=== PATIENT | male | born 1965 | race Hispanic/Latino ===

== ENCOUNTER 2019-03-21 16:55 | Emergency (ER) | payer BC ==
[2019-03-21 17:55] LABS: BASOPHILS % (AUTO) 0.7 % (0.0-5.0); EOSINOPHILS % (AUTO) 5.1 % (0.0-8.0); HEMATOCRIT 39.3 % (42-54); LYMPHOCYTES % (AUTO) 16.4 % (21.0-51.0); MEAN CORPUSCULAR HEMOGLOBIN 32.2 pg (27.0-33.0); MEAN CORPUSCULAR HGB CONC 34.9 g/dL (32.0-36.0); MEAN CORPUSCULAR VOLUME 92.5 fL (79-99); MONOCYTES % (AUTO) 12.4 % (3.0-13.0); NEUTROPHILS % (AUTO) 65.1 % (40.0-77.0); PLATELET COUNT (AUTO) 83 K/uL (130-400); RED BLOOD CELL COUNT(AUTO) 4.25 MIL/uL (4.50-6.20)
[2019-03-21 18:04] LABS: CREATININE 0.7 mg/dL (0.5-1.5); POTASSIUM 3.2 mmol/L (3.5-5.1)
[2019-03-21 18:08] LABS: ALBUMIN 2.8 g/dL (3.5-5.0); BILIRUBIN,TOTAL 2.7 mg/dL (0.2-1.0); TOTAL PROTEIN, SERUM 7.4 g/dL (6.0-8.3)
[2019-03-21 18:16] LABS: INR 1.19 (0.85-1.15); PARTIAL THROMBOPLASTIN TIME 30.9 SEC (26.3-35.5); PROTHROMBIN TIME 12.4 SEC (9.6-11.6)
[2019-03-21 18:21] LABS: RAPID GROUP A STREP NEGATIVE (NEGATIVE)
[2019-03-21] MEDS ORDERED: ASPIRIN 325 MG TABLET ONE (18:35)
[2019-03-21 18:42] LABS: APPEARANCE,URINE Clear (CLEAR); BILIRUBIN,URINE Negative (NEGATIVE); COLOR,URINE Yellow (YELLOW); GLUCOSE, URINE (UA) Negative (NEGATIVE); KETONES,URINE Negative (NEGATIVE); LEUKOCYTE ESTERASE ,URINE Moderate (NEGATIVE); NITRATE,URINE Negative (NEGATIVE); OCCULT BLOOD,URINE Trace (NEGATIVE); PH,URINE 7.5 (5.0-8.0); PROTEIN,URINE Negative (NEGATIVE)
[2019-03-21 18:47] LABS: BACTERIA,URINE Rare /HPF (None Seen); RBC,URINE 0-1 /HPF (0-1); SQUAMOUS EPITHELIAL CELL,UR Rare /HPF (0-2)
[2019-03-21] MEDS ORDERED: IPRATROPIUM/ALBUTEROL SULFATE 3 ML SOLUTION IH ONE (20:33)
[2019-03-21] MEDS ORDERED: IOHEXOL 350 MG/ML 100ML INFUS..BTL IV ONE (21:51)
[2019-03-21] MEDS ORDERED: AZITHROMYCIN 250 MG TABLET PO ONE ×2 (23:24→23:25)
== END 2019-03-21 23:52 | disposition home or self-care (01) ==
LOC: EDH 16:55
DX: J84.114 Acute interstitial pneumonitis (principal); I10 Essential (primary) hypertension; E11.9 Type 2 diabetes mellitus without complications; Z90.49 Acquired absence of other specified parts of digestive tract; Z98.890 Other specified postprocedural states
CPT/HCPCS: 36415; 71046; 71275; 80053; 81001; 82550; 83880; 84484; 85025; 85378; 85610; 85730; 87804 ×2; 87880; 93005; 94640; 99285; Q9967

== ENCOUNTER 2019-04-24 14:41 | Inpatient (IN) | payer BC ==
[~2019-04-24] VITALS: Ht 175.3 cm; Wt 124.6 kg
[2019-04-24] MEDS ORDERED: SODIUM CHLORIDE 0.9% 1000ML 1,000 ML IV ONE (15:38)
[2019-04-24 16:10] LABS: BASOPHILS % (AUTO) 0.4 % (0.0-5.0); EOSINOPHILS % (AUTO) 1.9 % (0.0-8.0); HEMATOCRIT 33.8 % (42-54); LYMPHOCYTES % (AUTO) 24.7 % (21.0-51.0); MEAN CORPUSCULAR HEMOGLOBIN 32.5 pg (27.0-33.0); MEAN CORPUSCULAR HGB CONC 34.3 g/dL (32.0-36.0); MEAN CORPUSCULAR VOLUME 94.7 fL (79-99); MONOCYTES % (AUTO) 9.5 % (3.0-13.0); NEUTROPHILS % (AUTO) 63.1 % (40.0-77.0); PLATELET COUNT (AUTO) 71 K/uL (130-400); RED BLOOD CELL COUNT(AUTO) 3.57 MIL/uL (4.50-6.20); WHITE BLOOD COUNT (AUTO) 5.2 K/uL (4.8-10.8)
[2019-04-24 16:27] LABS: INR 1.29 (0.85-1.15); PARTIAL THROMBOPLASTIN TIME 30.2 SEC (26.3-35.5); PROTHROMBIN TIME 13.8 SEC (9.6-11.6)
[2019-04-24 16:50] LABS: CREATININE 0.7 mg/dL (0.5-1.5); POTASSIUM 3.4 mmol/L (3.5-5.1)
[2019-04-24 16:55] LABS: ALBUMIN 2.6 g/dL (3.5-5.0); BILIRUBIN,TOTAL 2.2 mg/dL (0.2-1.0)
[2019-04-24] MEDS ORDERED: SODIUM CHLORIDE 0.9% 250 ML IV ONE (18:03)
[2019-04-24] MEDS ORDERED: OCTREOTIDE ACETATE 200 MCG/ML 5 ML VIAL ONE (18:03)
[2019-04-24] MEDS ORDERED: OCTREOTIDE ACETATE 100 MCG/ML AMP ONE (18:03)
[2019-04-24] MEDS ORDERED: POTASSIUM CHLORIDE 10% ELIXIR 20 MEQ/15 ML UDCUP PO PRN (18:30)
[2019-04-24] MEDS ORDERED: DEXTROSE 50%-WATER 50 ML DISP.SYRIN IV PRN (18:30)
[2019-04-24] MEDS ORDERED: GLUCAGON 1MG KIT 1 MG ML IM PRN (18:30)
[2019-04-24] MEDS ORDERED: MAGNESIUM 2GM PREMIX 50ML 50 ML IV PRN (18:30)
[2019-04-24] MEDS ORDERED: POTASSIUM CHLORIDE 20MEQ/100ML 100 ML IV PRN (18:30)
[2019-04-24] MEDS: SODIUM CHLORIDE 0.9% 1000ML 1,000 ML IV SCH (18:31)
[2019-04-24] MEDS ORDERED: SODIUM CHLORIDE 0.9% 1000ML 1,000 ML IV SCH (18:45)
[2019-04-24] MEDS ORDERED: DIPHENHYDRAMINE HCL 25 MG CAPSULE PO PRN (18:45)
[2019-04-24] MEDS ORDERED: NITROGLYCERIN 0.4 MG SL TAB SL PRN (18:45)
[2019-04-24] MEDS ORDERED: ACETAMINOPHEN 325 MG TAB PO PRN ×2 (18:45)
[2019-04-24] MEDS ORDERED: ONDANSETRON HCL 4 MG/2 ML VIAL IV PRN (18:45)
[2019-04-24] MEDS ORDERED: OCTREOTIDE ACETATE 1,250 MCG in SODIUM CHLORIDE 0.9% 250 ML IV SCH (18:45)
[2019-04-24 20:20] LABS: HEMOGLOBIN A1C 5.2 % (4.0-6.0)
[2019-04-24] MEDS: INSULIN HUMULIN R 100 UNIT/ML 3ML SQ SCH (21:00)
[2019-04-24 22:35] LABS: APPEARANCE,URINE Clear (CLEAR); BILIRUBIN,URINE Negative (NEGATIVE); COLOR,URINE Yellow (YELLOW); GLUCOSE, URINE (UA) Negative (NEGATIVE); KETONES,URINE Negative (NEGATIVE); LEUKOCYTE ESTERASE ,URINE Negative (NEGATIVE); NITRATE,URINE Negative (NEGATIVE); OCCULT BLOOD,URINE Negative (NEGATIVE); PH,URINE 7.5 (5.0-8.0); PROTEIN,URINE Negative (NEGATIVE)
[2019-04-24 22:40] LABS: HEMATOCRIT 33.3 % (42-54)
[2019-04-25] VITALS (22 sets, daily range): BP systolic 127–166; BP diastolic 71–96
[2019-04-25] MEDS ORDERED: MAGNESIUM 2GM PREMIX 50ML 50 ML IV ONE (00:46)
--- NOTE | 2019-04-25 02:18 | NUR ---
PATIENT RECEIVED FROM ER, REPORT FROM ARNOLDO WILKES. DX MELENA, THROMBOCYTOPENIA AND DEHYDRATION. PT ARRIVED TO ROOM AAOX3, NO ACUTE DISTRESS NOTED OR VOICED. PATIENT IS ACCOMPANIED BY . PT STATES HE STARTED WITH SYMPTOMS ON TUESDAY, THEY PROGRESSED, HE FELT WEAK AND DECIDED TO COME TO HOSPITAL. PT AND SPOUSE ORIENTED ON ADMISSION AND ENVIRONMENT, INCLUDING CALL GOYAL AND POC. TELE MONITORING TO BE INITIATED. PT CURRENTLY ON SANDOSTATIN DRIP AT 25MCG/HR (5ML) AND NS 100ML/HR. PLAN TO REPLACE K FOR LEVEL OF 3.4. WILL CONT TO MONITOR CLOSELY. FALL PRECAUTIONS INSTRUCTED. Addendum: 04/25/19 at 0430 by MARTA JEAN BAPTISTE RN RN Amended: Links added.
[2019-04-25] MEDS ORDERED: LOSA50TA64 PO (02:23)
[2019-04-25] MEDS: SODIUM CHLORIDE 0.9% 1000ML 1,000 ML IV SCH ×2 (03:27→14:17)
[2019-04-25] MEDS ORDERED: POTASSIUM CHLORIDE 20MEQ/100ML 100 ML IV PRN (03:30)
[2019-04-25] MEDS ORDERED: LIDOCAINE HCL-MPF 1% 2ML VIAL IV PRN (03:30)
[2019-04-25] MEDS: LIDOCAINE HCL-MPF 1% 2ML VIAL IJ PRN (03:33)
[2019-04-25 05:01] LABS: HEMATOCRIT 31.8 % (42-54); MEAN CORPUSCULAR HEMOGLOBIN 32.4 pg (27.0-33.0); MEAN CORPUSCULAR VOLUME 95.5 fL (79-99); PLATELET COUNT (AUTO) 78 K/uL (130-400); RED BLOOD CELL COUNT(AUTO) 3.33 MIL/uL (4.50-6.20); RED CELL DISTRIBUTION WIDTH 13.2 % (11.0-15.5); WHITE BLOOD COUNT (AUTO) 5.7 K/uL (4.8-10.8)
[2019-04-25 05:06] LABS: ALBUMIN 2.4 g/dL (3.5-5.0); BILIRUBIN,TOTAL 2.3 mg/dL (0.2-1.0); CREATININE 0.7 mg/dL (0.5-1.5); MAGNESIUM 1.9 mg/dL (1.80-2.40); POTASSIUM 3.6 mmol/L (3.5-5.1); TOTAL PROTEIN, SERUM 6.5 g/dL (6.0-8.3)
[2019-04-25 05:20] LABS: LYMPHOCYTES % (MANUAL) 12 % (22-44); MAN.DIFF COMMENT-IMPRESSION MANUAL DIFFERENTIAL; MONOCYTES % (MANUAL) 8 % (2-9); PLATELET MORPHOLOGY COMMENT DECREASED; SEGMENTED NEUTROPHILS % 80 % (40-70)
[2019-04-25] MEDS: INSULIN HUMULIN R 100 UNIT/ML 3ML SQ SCH (05:25)
[2019-04-25] MEDS ORDERED: FAMOTIDINE/PF 20 MG/2 ML VIAL IV SCH (09:00)
[2019-04-25] MEDS: FUROSEMIDE 20 MG TABLET PO SCH (09:30)
[2019-04-25] MEDS: SPIRONOLACTONE 25 MG TAB PO SCH ×2 (09:30→20:30)
[2019-04-25] MEDS: PANTOPRAZOLE 40 MG/VIAL IVP SCH ×2 (10:11→20:30)
[2019-04-25 10:25] LABS: MAGNESIUM 1.9 mg/dL (1.80-2.40); POTASSIUM 3.5 mmol/L (3.5-5.1)
[2019-04-25] MEDS ORDERED: PROPOFOL 10 MG/ML 20ML VIAL IV ONE (11:00)
--- NOTE | 2019-04-25 12:00 | NUR ---
CM NOTE SPOKE WITH PATIENT & SPOUSE AT BEDSIDE. PATIENT HAS LIVER DISEASE, DOES 'NOT KNOW WHAT STAGE?' PATIENT HAS FATTY LIVER DISEASE-- RECOMMENDED TRANSPORTATION COORDINATOR CONSULT FOR RECOMMENDATIONS AND PLACED IN COMPUTER.
--- NOTE | 2019-04-25 12:00 | NUR ---
INITIAL Patient lives with spouse, Isabel Rich, [phone]. No home services or DME. Patient did state that his PCP had ordered him a BPM but he has not received it yet. 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 He is also able to drive. PCP is Dr. Lima Silver. Pharmacy is [facility] on [address] or Pharmacy at [facility]. DCP is home. Addendum: 04/25/19 at 1203 by LAISHA TOVAR SS Amended: Links added.
--- NOTE | 2019-04-25 12:04 | NUR ---
ADVANCED DIRECTIVES Patient requesting information on Advanced Directives. SW educated patient and spouse on Advanced Directives and Medical Power of [employer]erves. Patient stated that he would review and let SW know when and if he was ready to complete. Felipe AGUILAR, made aware.
--- NOTE | 2019-04-25 15:56 | NUR ---
RD NOTIFICATION DIET: NPO. PT REPORTS TARRY AND LOOSE STOOLS. LABS AND MEDS REVIEWED. SKIN IS INTACT. RD PENDING MD RESULTS. RD RECOMMENDS TO ADVANCE DIET TOLERATED WHEN MEDICALLY FEASIBLE MONITOR BM, PO INTAKE AND TOLERANCE MONITOR LABS RD WILL CONTINUE TO MONITOR AND FOLLOW UP, THANK YOU. Addendum: 04/25/19 at [address] Amended: Links added.
[2019-04-25] MEDS ORDERED: MORPHINE SULFATE 2 MG/ML 1ML SYG ONE (22:45)
[2019-04-25] MEDS ORDERED: MORPHINE SULFATE 2 MG/ML 1ML SYG IVP PRN (23:00)
[2019-04-26 00:16] VITALS: BP 160/84
[2019-04-26] MEDS: SODIUM CHLORIDE 0.9% 1000ML 1,000 ML IV SCH ×2 (00:33→10:40)
[2019-04-26 04:16] VITALS: BP 117/69
[2019-04-26 05:42] LABS: BASOPHILS % (AUTO) 0.9 % (0.0-5.0); EOSINOPHILS % (AUTO) 4.5 % (0.0-8.0); HEMATOCRIT 29.6 % (42-54); LYMPHOCYTES % (AUTO) 32.3 % (21.0-51.0); MEAN CORPUSCULAR HEMOGLOBIN 33.2 pg (27.0-33.0); MEAN CORPUSCULAR HGB CONC 35.1 g/dL (32.0-36.0); MEAN CORPUSCULAR VOLUME 94.6 fL (79-99); MONOCYTES % (AUTO) 7.1 % (3.0-13.0); PLATELET COUNT (AUTO) 70 K/uL (130-400); RED BLOOD CELL COUNT(AUTO) 3.13 MIL/uL (4.50-6.20); RED CELL DISTRIBUTION WIDTH 13.1 % (11.0-15.5); WHITE BLOOD COUNT (AUTO) 4.7 K/uL (4.8-10.8)
[2019-04-26 05:51] LABS: ALBUMIN 2.3 g/dL (3.5-5.0); BILIRUBIN,TOTAL 2.1 mg/dL (0.2-1.0); CREATININE 0.7 mg/dL (0.5-1.5); TOTAL PROTEIN, SERUM 6.2 g/dL (6.0-8.3)
[2019-04-26 07:13] LABS: HEPATITIS A ANTIBODY IGM Negative (Negative); HEPATITIS B CORE IGM Negative (Negative); HEPATITIS Bs ANTIGEN SCREEN P Negative (Negative)
[2019-04-26] MEDS: LIDOCAINE HCL-MPF 1% 2ML VIAL IJ PRN (07:19)
[2019-04-26 07:30] VITALS: BP 146/66
[2019-04-26] MEDS: PANTOPRAZOLE 40 MG/VIAL IVP SCH ×2 (09:58→20:35)
[2019-04-26] MEDS: SPIRONOLACTONE 25 MG TAB PO SCH ×2 (09:58→20:35)
[2019-04-26] MEDS: POTASSIUM CHLORIDE 20 MEQ ERTAB PO PRN ×3 (09:59→17:48)
[2019-04-26] MEDS: FUROSEMIDE 20 MG TABLET PO SCH (09:59)
[2019-04-26 11:00] VITALS: BP 129/76
--- NOTE | 2019-04-26 14:47 | NUR ---
NUTRITION EDUCATION COMPLETED RD PROVIDED CIRRHOSIS AND FATTY LIVER MEDICAL NUTRITION THERAPY. ALL QUESTIONS WERE ANSWERED. PT AND VERBALIZED UNDERSTANDING. EDUCATION MATERIALS WERE PROVIDED IN [facility]. Addendum: 04/26/19 at [address] Amended: Links added.
--- NOTE | 2019-04-26 14:49 | NUR ---
RD FOLLOW UP PT REPORTS HAVING NORMAL STOOLS TODAY. HE IS TOLERATING CURRENT DIET AND STATED THAT HE IS "STARVING". PT WOULD LIKE TO SPEAK TO MD ABOUT ADVANCING HIS DIET.
[2019-04-26 16:00] VITALS: BP 127/93
[2019-04-26] MEDS: PROPRANOLOL HCL 20 MG TAB PO SCH (17:47)
[2019-04-26 20:16] VITALS: BP 129/85
[2019-04-27 00:20] VITALS: BP 121/77
[2019-04-27 04:01] LABS: BASOPHILS % (AUTO) 0.6 % (0.0-5.0); EOSINOPHILS % (AUTO) 3.8 % (0.0-8.0); HEMATOCRIT 30.4 % (42-54); MEAN CORPUSCULAR HGB CONC 34.9 g/dL (32.0-36.0); MEAN CORPUSCULAR VOLUME 94.7 fL (79-99); MONOCYTES % (AUTO) 8.1 % (3.0-13.0); NEUTROPHILS % (AUTO) 56.3 % (40.0-77.0); PLATELET COUNT (AUTO) 75 K/uL (130-400); RED BLOOD CELL COUNT(AUTO) 3.21 MIL/uL (4.50-6.20); RED CELL DISTRIBUTION WIDTH 12.9 % (11.0-15.5); WHITE BLOOD COUNT (AUTO) 4.7 K/uL (4.8-10.8)
[2019-04-27 04:15] LABS: ALBUMIN 2.4 g/dL (3.5-5.0); BILIRUBIN,TOTAL 1.6 mg/dL (0.2-1.0); CREATININE 0.8 mg/dL (0.5-1.5); POTASSIUM 3.7 mmol/L (3.5-5.1); TOTAL PROTEIN, SERUM 6.3 g/dL (6.0-8.3)
[2019-04-27 04:20] VITALS: BP 110/58
[2019-04-27] MEDS: PROPRANOLOL HCL 20 MG TAB PO SCH (04:32)
[2019-04-27] MEDS ORDERED: PANT40TA25 PO (07:47)
[2019-04-27] MEDS ORDERED: SPIR25TA PO (07:47)
[2019-04-27] MEDS ORDERED: FURO20TA6 PO (07:47)
[2019-04-27] MEDS ORDERED: PROP20TA96 PO (07:47)
[2019-04-27 08:49] VITALS: BP 133/76
[2019-04-27] MEDS: SPIRONOLACTONE 25 MG TAB PO SCH (10:44)
[2019-04-27] MEDS: FUROSEMIDE 20 MG TABLET PO SCH (10:44)
[2019-04-27] MEDS: PANTOPRAZOLE 40 MG/VIAL IVP SCH (10:44)
[2019-04-27] MEDS: POTASSIUM CHLORIDE 20 MEQ ERTAB PO PRN (10:47)
--- NOTE | 2019-04-27 12:25 | NUR ---
PT D/C HOME USING TEACH BACK TECHNIQUE RE; NEW MEDS, HOME MEDS, S/S TO WATCH FOR AND WHEN TO CALL MD OR 911. FOLLOW UP WITH YOUR PRIMARY DOCTOR IN 2-4 DAYS FOR TRANSITION OF CARE. FOLLOW UP WITH DR. LUI IN 1-2 WEEKS. CALL TO SET UP AN APPOINTMENT AT PHONE [phone]. IF YOU NOTICE BLOOD IN YOUR STOOLS CALL YOUR PRIMARY DOCTOR. IF YOU FEEL DIZZY OR LIGHT HEADED, OR SHORT OF BREATH CALL YOUR DOCTOR COULD MEAN YOUR BLOOD COUNT MAY BE LOW. CALL 911 IF SHORTNESS OF BREATH OR CHEST PAIN DOES NOT RESOLVE WITH REST. IV OUT INTACT, NO DISTRESS, AAOX3, PATIENT DENIES ANY QUESTIONS OR CONCERNS. TELE PACK REMOVED BY FINISHED GOODS PLANNER.
--- NOTE | 2019-04-27 15:20 | NUR ---
PRESCRIPTION FOR CIPRO CALLED IN TO [facility] SPOKE WITH DEMI MCFADDEN.
== END 2019-04-27 13:00 | disposition home or self-care (01) | DRG 432 ==
LOC: EDH 14:41 → EDHIP 18:22 → 4BH 23:40
PROVIDERS: ADMIT Hospitalist; ATTEND Hospitalist
PROC: 06L38CZ Occlusion of Esophageal Vein with Extraluminal Device, Via Natural or Artificial Opening Endoscopic (ICD-10-PCS; principal; 2019-04-25)
DX: K74.60 Unspecified cirrhosis of liver (principal); I85.01 Esophageal varices with bleeding; K76.6 Portal hypertension; Z68.41 Body mass index [BMI] 40.0-44.9, adult; D62 Acute posthemorrhagic anemia; D69.6 Thrombocytopenia, unspecified; E86.0 Dehydration; E87.6 Hypokalemia; E66.01 Morbid (severe) obesity due to excess calories; G30.9 Alzheimer's disease, unspecified; Z83.49 Family history of other endocrine, nutritional and metabolic diseases; Z82.49 Family history of ischemic heart disease and other diseases of the circulatory system; G89.29 Other chronic pain; I10 Essential (primary) hypertension; Z87.442 Personal history of urinary calculi
CPT/HCPCS: 36415; 71045; 76700; 80053; 80074; 81003; 82270; 82948; 82977; 83036; 83605; 83735; 84132; 84484; 85014; 85018; 85025; 85610; 85730; 86900; 86901; 87040; 87046; 93005; A4606; C9113; G0378; J2354; J2405; J2704; J3475; J3480; J3490; J7030

== ENCOUNTER 2019-06-12 20:23 | Emergency (ER) | payer BC ==
[~2019-06-12 20:23] MED LIST: FURO20TA6 PO; LOSA50TA64 PO; PANT40TA25 PO; PROP20TA96 PO; SPIR25TA PO
[2019-06-12 20:57] LABS: APPEARANCE,URINE Clear (CLEAR); BILIRUBIN,URINE Negative (NEGATIVE); COLOR,URINE Yellow (YELLOW); GLUCOSE, URINE (UA) Negative (NEGATIVE); KETONES,URINE Negative (NEGATIVE); LEUKOCYTE ESTERASE ,URINE Small (NEGATIVE); NITRATE,URINE Negative (NEGATIVE); OCCULT BLOOD,URINE Negative (NEGATIVE); PROTEIN,URINE Negative (NEGATIVE)
[2019-06-12 21:08] LABS: BASOPHILS % (AUTO) 0.4 % (0.0-5.0); EOSINOPHILS % (AUTO) 4.5 % (0.0-8.0); HEMATOCRIT 32.4 % (42-54); LYMPHOCYTES % (AUTO) 20.2 % (21.0-51.0); MEAN CORPUSCULAR HEMOGLOBIN 31.6 pg (27.0-33.0); MEAN CORPUSCULAR HGB CONC 34.3 g/dL (32.0-36.0); MEAN CORPUSCULAR VOLUME 92.3 fL (79-99); MONOCYTES % (AUTO) 12.3 % (3.0-13.0); NEUTROPHILS % (AUTO) 62.6 % (40.0-77.0); PLATELET COUNT (AUTO) 79 K/uL (130-400); RED BLOOD CELL COUNT(AUTO) 3.51 MIL/uL (4.50-6.20); RED CELL DISTRIBUTION WIDTH 12.9 % (11.0-15.5); WHITE BLOOD COUNT (AUTO) 4.9 K/uL (4.8-10.8)
[2019-06-12 21:12] LABS: BACTERIA,URINE Rare /HPF (None Seen); RBC,URINE None Seen /HPF (0-1); SQUAMOUS EPITHELIAL CELL,UR 0-2 /HPF (0-2)
[2019-06-12 21:18] LABS: POTASSIUM 3.5 mmol/L (3.5-5.1)
[2019-06-12 21:23] LABS: ALBUMIN 2.7 g/dL (3.5-5.0); BILIRUBIN,TOTAL 1.5 mg/dL (0.2-1.0); INR 1.21 (0.85-1.15); MAGNESIUM 1.6 mg/dL (1.80-2.40); PARTIAL THROMBOPLASTIN TIME 29.8 SEC (26.3-35.5); TOTAL PROTEIN, SERUM 6.7 g/dL (6.0-8.3)
== END 2019-06-12 22:35 | disposition home or self-care (01) ==
LOC: EDH 20:23
DX: E86.9 Volume depletion, unspecified (principal); R53.1 Weakness; E11.9 Type 2 diabetes mellitus without complications; I10 Essential (primary) hypertension; Z87.442 Personal history of urinary calculi
CPT/HCPCS: 36415; 80053; 81001; 82270; 82550; 83735; 84484; 85025; 85610; 85730; 93005

== ENCOUNTER 2019-07-16 22:37 | Inpatient (IN) | payer BC ==
[~2019-07-16] VITALS: Ht 175.3 cm; Wt 129.5 kg
[~2019-07-16 22:37] MED LIST changes: -PANT40TA25 PO; +PANT40TA54 PO
[2019-07-16] MEDS ORDERED: METOCLOPRAMIDE 10 MG/2 ML VIAL ONE (23:38)
[2019-07-16] MEDS ORDERED: ONDANSETRON HCL 4 MG/2 ML VIAL ONE (23:38)
[2019-07-16] MEDS ORDERED: FAMOTIDINE/PF 20 MG/2 ML VIAL IV ONE (23:39)
[2019-07-16 23:40] LABS: BASOPHILS % (AUTO) 0.8 % (0.0-5.0); EOSINOPHILS % (AUTO) 3.4 % (0.0-8.0); HEMATOCRIT 30.9 % (42-54); LYMPHOCYTES % (AUTO) 23.3 % (21.0-51.0); MEAN CORPUSCULAR HEMOGLOBIN 30.9 pg (27.0-33.0); MEAN CORPUSCULAR HGB CONC 33.3 g/dL (32.0-36.0); MEAN CORPUSCULAR VOLUME 92.8 fL (79-99); MONOCYTES % (AUTO) 7.1 % (3.0-13.0); PLATELET COUNT (AUTO) 98 K/uL (130-400); RED BLOOD CELL COUNT(AUTO) 3.33 MIL/uL (4.50-6.20); RED CELL DISTRIBUTION WIDTH 13.7 % (11.0-15.5); WHITE BLOOD COUNT (AUTO) 4.9 K/uL (4.8-10.8)
[2019-07-16 23:51] LABS: INR 1.34 (0.85-1.15); PARTIAL THROMBOPLASTIN TIME 28.1 SEC (26.3-35.5); PROTHROMBIN TIME 14.3 SEC (9.6-11.6)
[2019-07-16 23:54] LABS: CARBON DIOXIDE 27 mmol/L (21-32); CHLORIDE 108 mmol/L (101-111); GLOMERULAR FILTR. RATE CALC 83 mL/min (>60); GLUCOSE,RANDOM 121 mg/dL (70-105); POTASSIUM 4.5 mmol/L (3.5-5.1); SODIUM SERUM 139 mmol/L (136-145); UREA NITROGEN, BLOOD 25 mg/dL (7-18)
[2019-07-16 23:58] LABS: ALANINE AMINOTRANSFERASE 43 U/L (12-78); ALBUMIN 2.5 g/dL (3.5-5.0); ASPARTATE AMINOTRANSFERASE 56 U/L (10-37); BILIRUBIN,TOTAL 1.7 mg/dL (0.2-1.0); CREATINE KINASE, TOTAL 239 U/L (21-232); LIPASE 138 U/L (114-286); TOTAL PROTEIN, SERUM 6.5 g/dL (6.0-8.3)
[2019-07-17] VITALS (18 sets, daily range): BP systolic 95–163; BP diastolic 41–77
[2019-07-17 00:11] LABS: ALCOHOL, BLOOD < 3 mg/dL (0-10)
[2019-07-17] MEDS ORDERED: SODIUM CHLORIDE 0.9% 100 ML IV ONE (00:18)
[2019-07-17] MEDS: SODIUM CHLORIDE 0.9% 1000ML 1,000 ML IV SCH ×3 (00:35→23:00)
[2019-07-17] MEDS ORDERED: ONDANSETRON HCL 4 MG/2 ML VIAL IV PRN (00:45)
[2019-07-17] MEDS ORDERED: LACTULOSE 20 GM/30 ML UDCUP PO PRN (00:45)
[2019-07-17] MEDS ORDERED: OCTREOTIDE ACETATE 1,250 MCG in SODIUM CHLORIDE 0.9% 250 ML IV SCH (01:00)
[2019-07-17] MEDS: PANTOPRAZOLE SODIUM 80 MG in SODIUM CHLORIDE 0.9% 100 ML IV SCH ×2 (01:00→11:00)
[2019-07-17] MEDS ORDERED: OCTREOTIDE ACETATE 200 MCG/ML 5 ML VIAL ONE (01:35)
[2019-07-17] MEDS ORDERED: OCTREOTIDE ACETATE 100 MCG/ML AMP ONE (01:35)
[2019-07-17] MEDS ORDERED: ONDANSETRON HCL 4 MG/2 ML VIAL ONE (01:56)
[2019-07-17] MEDS ORDERED: HYDRALAZINE HCL 20 MG/ML VIAL IV PRN (02:15)
[2019-07-17 04:33] LABS: HEMATOCRIT 26.1 % (42-54)
[2019-07-17 04:47] LABS: APPEARANCE,URINE Clear (CLEAR); BILIRUBIN,URINE Negative (NEGATIVE); COLOR,URINE Dark Yellow (YELLOW); GLUCOSE, URINE (UA) Negative (NEGATIVE); KETONES,URINE Trace mg/dL (NEGATIVE); LEUKOCYTE ESTERASE ,URINE Trace (NEGATIVE); NITRATE,URINE Negative (NEGATIVE); OCCULT BLOOD,URINE Negative (NEGATIVE); PROTEIN,URINE POS 1+ mg/dL (NEGATIVE)
[2019-07-17 04:57] LABS: BACTERIA,URINE None Seen /HPF (None Seen); MUCUS,URINE Few LPF (None Seen); RBC,URINE 0-1 /HPF (0-1); SQUAMOUS EPITHELIAL CELL,UR Rare /HPF (0-2)
[2019-07-17] MEDS ORDERED: PROPOFOL 10 MG/ML 20ML VIAL IV ONE (10:18)
[2019-07-17] MEDS ORDERED: MIDAZOLAM HCL 1 MG/ML 2ML VIAL ONE (10:18)
[2019-07-17 10:43] LABS: HEMATOCRIT 27.9 % (42-54)
[2019-07-17] MEDS: MORPHINE SULFATE 2 MG/ML 1ML SYG IV PRN (12:15)
[2019-07-17] MEDS ORDERED: GABA-529 PO ×2 (12:39)
[2019-07-17] MEDS ORDERED: TAMS-1 PO ×2 (12:39)
[2019-07-17] MEDS: HYDROMORPHONE HCL 2 MG/ML VIAL IVP SCH ×2 (14:45→18:45)
--- NOTE | 2019-07-17 15:48 | NUR ---
DCP CM met with pt discussed dc plans. Pt is independent prior to admission, lives at home with spouse. Denies any equipments/services. Feels safe to go back home, still drives and works, spouse able to assist with transportation and needs as necessary. Pt verbalized he does to Dr darell ott/[facility] or Darlin alvarez for pcp follow up. Current addr: [address] [place] ,[place]. DC plan to home once stable. CM to cont to follow up. Addendum: 07/17/19 at 1550 by RAZA CANTU LVN CM Amended: Links added.
[2019-07-17] MEDS: METOCLOPRAMIDE 10 MG/2 ML VIAL IVP SCH (20:38)
[2019-07-18] VITALS (7 sets, daily range): BP systolic 110–149; BP diastolic 68–87
[2019-07-18 05:01] LABS: BASOPHILS % (AUTO) 0.6 % (0.0-5.0); EOSINOPHILS % (AUTO) 0.8 % (0.0-8.0); HEMATOCRIT 26.9 % (42-54); LYMPHOCYTES % (AUTO) 23.1 % (21.0-51.0); MEAN CORPUSCULAR VOLUME 97.1 fL (79-99); MONOCYTES % (AUTO) 7.7 % (3.0-13.0); NEUTROPHILS % (AUTO) 67.6 % (40.0-77.0); PLATELET COUNT (AUTO) 83 K/uL (130-400); RED BLOOD CELL COUNT(AUTO) 2.77 MIL/uL (4.50-6.20); RED CELL DISTRIBUTION WIDTH 14.4 % (11.0-15.5); WHITE BLOOD COUNT (AUTO) 6.3 K/uL (4.8-10.8)
[2019-07-18 05:13] LABS: ALBUMIN 2.4 g/dL (3.5-5.0); BILIRUBIN,TOTAL 1.7 mg/dL (0.2-1.0); POTASSIUM 4.4 mmol/L (3.5-5.1)
[2019-07-18] MEDS: CEFTRIAXONE SODIUM 1 GM IV SCH (07:39)
[2019-07-18] MEDS: PANTOPRAZOLE SODIUM 40 MG TABLET.DR PO SCH (07:39)
[2019-07-18] MEDS: FUROSEMIDE 20 MG TABLET PO SCH (07:39)
[2019-07-18] MEDS: LOSARTAN 50 MG TABLET PO SCH (07:39)
[2019-07-18] MEDS: SPIRONOLACTONE 25 MG TAB PO SCH (07:40)
[2019-07-18] MEDS: SODIUM CHLORIDE 0.9% 1000ML 1,000 ML IV SCH ×2 (07:41→16:09)
[2019-07-18] MEDS: METOCLOPRAMIDE 10 MG/2 ML VIAL IVP SCH ×3 (07:41→19:48)
--- NOTE | 2019-07-18 08:00 | NUR ---
ASSESSMENT PT IS AAOX3 DENIES CP DENIES SOB DENIES NV NO COMPLAINTS. RESTING IN BED. STATES SOME ABD DISCOMFORT/NAUSEA, AM MEDS GIVEN. CALL LIGHT WITHIN REACH.
[2019-07-18] MEDS ORDERED: PANTOPRAZOLE SODIUM 40 MG TABLET.DR PO SCH (09:00)
[2019-07-18] MEDS: MORPHINE SULFATE 2 MG/ML 1ML SYG IV PRN ×2 (09:29→19:55)
[2019-07-18] MEDS: PROPRANOLOL HCL 20 MG TAB PO SCH ×2 (10:53→19:54)
[2019-07-18] MEDS: GABAPENTIN 100 MG CAPSULE PO SCH (19:48)
[2019-07-19] MEDS: SODIUM CHLORIDE 0.9% 1000ML 1,000 ML IV SCH ×3 (02:35→22:35)
[2019-07-19 04:27] LABS: BASOPHILS % (AUTO) 0.8 % (0.0-5.0); EOSINOPHILS % (AUTO) 4.4 % (0.0-8.0); HEMATOCRIT 24.9 % (42-54); LYMPHOCYTES % (AUTO) 37.9 % (21.0-51.0); MEAN CORPUSCULAR HEMOGLOBIN 31.3 pg (27.0-33.0); MEAN CORPUSCULAR HGB CONC 32.9 g/dL (32.0-36.0); MONOCYTES % (AUTO) 8.8 % (3.0-13.0); NEUTROPHILS % (AUTO) 47.9 % (40.0-77.0); PLATELET COUNT (AUTO) 90 K/uL (130-400); RED BLOOD CELL COUNT(AUTO) 2.62 MIL/uL (4.50-6.20); RED CELL DISTRIBUTION WIDTH 14.2 % (11.0-15.5); WHITE BLOOD COUNT (AUTO) 4.8 K/uL (4.8-10.8)
[2019-07-19 04:33] VITALS: BP 116/73
[2019-07-19 05:12] LABS: ALBUMIN 2.4 g/dL (3.5-5.0); BILIRUBIN,TOTAL 1.7 mg/dL (0.2-1.0); CREATININE 0.9 mg/dL (0.5-1.5); POTASSIUM 3.9 mmol/L (3.5-5.1); TOTAL PROTEIN, SERUM 5.8 g/dL (6.0-8.3)
[2019-07-19 07:30] VITALS: BP 136/71
[2019-07-19] MEDS: LOSARTAN 50 MG TABLET PO SCH (07:36)
[2019-07-19] MEDS: PROPRANOLOL HCL 20 MG TAB PO SCH (07:36)
[2019-07-19] MEDS: FUROSEMIDE 20 MG TABLET PO SCH (07:37)
[2019-07-19] MEDS: CEFTRIAXONE SODIUM 1 GM IV SCH (07:37)
[2019-07-19] MEDS: TAMSULOSIN HCL 0.4 MG CAP.ER.24H PO SCH (07:37)
[2019-07-19] MEDS: SPIRONOLACTONE 25 MG TAB PO SCH (07:37)
[2019-07-19] MEDS: PANTOPRAZOLE SODIUM 40 MG TABLET.DR PO SCH (07:37)
[2019-07-19] MEDS: METOCLOPRAMIDE 10 MG/2 ML VIAL IVP SCH ×3 (07:38→19:24)
--- NOTE | 2019-07-19 08:00 | NUR ---
ASSESSMENT PT IS AAOX3 DENIES CP DENIES SOB DENIES NV NO COMPLAINTS SITTING UP IN BED, AMBULATED FROM RESTROOM. CONTINUES ON NS AND SADAF GTT. CALL LIGHT WITHIN REACH.
[2019-07-19 11:00] VITALS: BP 109/56
[2019-07-19 16:00] VITALS: BP 109/65
[2019-07-19 19:00] VITALS: BP 98/60
[2019-07-19] MEDS: GABAPENTIN 100 MG CAPSULE PO SCH (19:24)
[2019-07-19] MEDS ORDERED: SENNOSIDES 8.6 MG TABLET PO PRN (19:30)
[2019-07-19] MEDS ORDERED: PROPRANOLOL HCL 10 MG TAB PO SCH (22:45)
[2019-07-19 23:00] VITALS: BP 104/61
[2019-07-20 03:00] VITALS: BP 114/72
[2019-07-20 03:48] LABS: BASOPHILS % (AUTO) 1.2 % (0.0-5.0); EOSINOPHILS % (AUTO) 4.1 % (0.0-8.0); HEMATOCRIT 22.9 % (42-54); LYMPHOCYTES % (AUTO) 35.6 % (21.0-51.0); MEAN CORPUSCULAR HEMOGLOBIN 31.4 pg (27.0-33.0); MEAN CORPUSCULAR HGB CONC 33.6 g/dL (32.0-36.0); MEAN CORPUSCULAR VOLUME 93.5 fL (79-99); MONOCYTES % (AUTO) 8.5 % (3.0-13.0); NEUTROPHILS % (AUTO) 50.3 % (40.0-77.0); PLATELET COUNT (AUTO) 72 K/uL (130-400); RED BLOOD CELL COUNT(AUTO) 2.45 MIL/uL (4.50-6.20); RED CELL DISTRIBUTION WIDTH 13.7 % (11.0-15.5); WHITE BLOOD COUNT (AUTO) 3.4 K/uL (4.8-10.8)
[2019-07-20 04:07] LABS: ALBUMIN 2.2 g/dL (3.5-5.0); BILIRUBIN,TOTAL 1.2 mg/dL (0.2-1.0); CREATININE 0.9 mg/dL (0.5-1.5); POTASSIUM 3.8 mmol/L (3.5-5.1); TOTAL PROTEIN, SERUM 5.5 g/dL (6.0-8.3)
[2019-07-20 08:35] VITALS: BP 114/72
[2019-07-20] MEDS ORDERED: CEPH-578 PO ×2 (09:04)
[2019-07-20] MEDS ORDERED: PROP10TA10 PO ×2 (09:04)
[2019-07-20] MEDS: CEFTRIAXONE SODIUM 1 GM IV SCH (09:15)
[2019-07-20] MEDS: METOCLOPRAMIDE 10 MG/2 ML VIAL IVP SCH (09:15)
[2019-07-20] MEDS: LOSARTAN 50 MG TABLET PO SCH (09:15)
[2019-07-20] MEDS: PANTOPRAZOLE SODIUM 40 MG TABLET.DR PO SCH (09:15)
[2019-07-20] MEDS: TAMSULOSIN HCL 0.4 MG CAP.ER.24H PO SCH (09:16)
[2019-07-20] MEDS: FUROSEMIDE 20 MG TABLET PO SCH (09:16)
[2019-07-20] MEDS: SPIRONOLACTONE 25 MG TAB PO SCH (09:16)
[2019-07-20 11:54] VITALS: BP 106/71
--- NOTE | 2019-07-20 12:30 | NUR ---
DISCHARGE INSTRUCTIONS GIVEN TO PATIENT. MADE AWARE OF FOLLOW UP APPOINTMENTS WITH DR. OLIVARES AND DR. CELESTE WHELAN. MADE AWARE OF NEW RX FOR KEFLEX AND PROPRANOLOL. PATIENT AT THIS TIME AAOX3, DENIES PAIN, DENIES ANY BLOODY STOOLS. IVS REMOVED FROM RIGHT HAND AND RIGHT AC, TELE REMOVED. SANDOSTATIN DRIP COMPLETE. PATIENT WILL BE PICKED UP BY HIS SON.
[2019-07-20] MEDS ORDERED: PROPRANOLOL HCL 10 MG TAB PO SCH (18:00)
== END 2019-07-20 12:45 | disposition home or self-care (01) | DRG 432 ==
LOC: EDH 22:37 → EDHIP 07-17 00:35 → 4BH 07-17 10:55
PROVIDERS: ADMIT Internal Medicine; ATTEND Internal Medicine
PROC: 06L38CZ Occlusion of Esophageal Vein with Extraluminal Device, Via Natural or Artificial Opening Endoscopic (ICD-10-PCS; principal; 2019-07-17)
DX: K74.69 Other cirrhosis of liver (principal); I85.11 Secondary esophageal varices with bleeding; D62 Acute posthemorrhagic anemia; K76.6 Portal hypertension; I10 Essential (primary) hypertension; K21.9 Gastro-esophageal reflux disease without esophagitis; I25.10 Atherosclerotic heart disease of native coronary artery without angina pectoris; E03.9 Hypothyroidism, unspecified; G62.9 Polyneuropathy, unspecified; K31.89 Other diseases of stomach and duodenum; Z87.442 Personal history of urinary calculi; Z90.49 Acquired absence of other specified parts of digestive tract; Z82.49 Family history of ischemic heart disease and other diseases of the circulatory system; Z83.6 Family history of other diseases of the respiratory system; Z82.0 Family history of epilepsy and other diseases of the nervous system
CPT/HCPCS: 36415; 43244; 71045; 76705; 80053; 81001; 82550; 83540; 83550; 83605; 83690; 84484; 85014; 85018; 85025; 85610; 85730; 86850; 86900; 86901; 86922; 93005; A4606; C9113; G0378; G0480; J0696; J1170; J2250; J2354; J2405; J2704; J2765; J3490; J7030; J7050

== ENCOUNTER 2019-07-22 14:21 | Emergency (ER) | payer BC ==
[~2019-07-22 14:21] MED LIST changes: +CEPH-578 PO; +GABA-529 PO; +PROP10TA10 PO; +TAMS-1 PO
[2019-07-22] MEDS ORDERED: SODIUM CHLORIDE 0.9% 1000ML 1,000 ML IV ONE (14:22)
[2019-07-22 14:48] LABS: BASOPHILS % (AUTO) 0.5 % (0.0-5.0); EOSINOPHILS % (AUTO) 4.3 % (0.0-8.0); HEMATOCRIT 24.1 % (42-54); LYMPHOCYTES % (AUTO) 31.6 % (21.0-51.0); MEAN CORPUSCULAR HEMOGLOBIN 31.2 pg (27.0-33.0); MEAN CORPUSCULAR VOLUME 91.6 fL (79-99); MONOCYTES % (AUTO) 12.6 % (3.0-13.0); NEUTROPHILS % (AUTO) 50.7 % (40.0-77.0); PLATELET COUNT (AUTO) 88 K/uL (130-400); RED BLOOD CELL COUNT(AUTO) 2.63 MIL/uL (4.50-6.20); RED CELL DISTRIBUTION WIDTH 13.8 % (11.0-15.5); WHITE BLOOD COUNT (AUTO) 3.7 K/uL (4.8-10.8)
[2019-07-22 15:05] LABS: PARTIAL THROMBOPLASTIN TIME 29.4 SEC (26.3-35.5)
[2019-07-22 15:12] LABS: CREATININE 0.9 mg/dL (0.5-1.5); POTASSIUM 3.9 mmol/L (3.5-5.1)
[2019-07-22 15:17] LABS: ALBUMIN 2.6 g/dL (3.5-5.0); BILIRUBIN,TOTAL 1.5 mg/dL (0.2-1.0); TOTAL PROTEIN, SERUM 6.3 g/dL (6.0-8.3)
[2019-07-22 15:26] LABS: INR 1.18 (0.85-1.15); PROTHROMBIN TIME 12.7 SEC (9.6-11.6)
[2019-07-22 16:14] LABS: APPEARANCE,URINE Clear (CLEAR); BILIRUBIN,URINE Negative (NEGATIVE); COLOR,URINE Yellow (YELLOW); GLUCOSE, URINE (UA) Negative (NEGATIVE); KETONES,URINE Negative (NEGATIVE); LEUKOCYTE ESTERASE ,URINE Trace (NEGATIVE); NITRATE,URINE Negative (NEGATIVE); OCCULT BLOOD,URINE Negative (NEGATIVE); PH,URINE 7.5 (5.0-8.0); PROTEIN,URINE Negative (NEGATIVE)
[2019-07-22 16:31] LABS: BACTERIA,URINE Rare /HPF (None Seen); RBC,URINE 0-1 /HPF (0-1); SQUAMOUS EPITHELIAL CELL,UR 0-2 /HPF (0-2)
== END 2019-07-22 17:58 | disposition home or self-care (01) ==
LOC: EDH 14:21
DX: D64.9 Anemia, unspecified (principal); R55 Syncope and collapse; R42 Dizziness and giddiness; I10 Essential (primary) hypertension; Z79.899 Other long term (current) drug therapy; Z90.49 Acquired absence of other specified parts of digestive tract
CPT/HCPCS: 36415; 80053; 81001; 82550; 83605; 84484; 85025; 85610; 85730; 93005; 96360; 96361; 99284; J7030

== ENCOUNTER 2019-08-16 02:23 | Inpatient (IN) | payer BC ==
[~2019-08-16] VITALS: Ht 175.3 cm; Wt 116.4 kg
[~2019-08-16 02:23] MED LIST changes: +PANT40TA25 PO; -PANT40TA54 PO; -PROP20TA96 PO
[2019-08-16 02:48] LABS: BASOPHILS % (AUTO) 0.8 % (0.0-5.0); EOSINOPHILS % (AUTO) 1.1 % (0.0-8.0); HEMATOCRIT 29.3 % (42-54); LYMPHOCYTES % (AUTO) 31.2 % (21.0-51.0); MEAN CORPUSCULAR HEMOGLOBIN 30.2 pg (27.0-33.0); MEAN CORPUSCULAR HGB CONC 32.8 g/dL (32.0-36.0); MEAN CORPUSCULAR VOLUME 92.1 fL (79-99); MONOCYTES % (AUTO) 13.4 % (3.0-13.0); NEUTROPHILS % (AUTO) 53.1 % (40.0-77.0); PLATELET COUNT (AUTO) 113 K/uL (130-400); RED BLOOD CELL COUNT(AUTO) 3.18 MIL/uL (4.50-6.20); RED CELL DISTRIBUTION WIDTH 15.4 % (11.0-15.5); WHITE BLOOD COUNT (AUTO) 7.1 K/uL (4.8-10.8)
[2019-08-16] MEDS ORDERED: SODIUM CHLORIDE 0.9% 1000ML 1,000 ML IV ONE (02:50)
[2019-08-16] MEDS ORDERED: CEFTRIAXONE SODIUM 2 GM VIAL ONE (02:52)
[2019-08-16 02:54] LABS: CREATININE 0.8 mg/dL (0.5-1.5)
[2019-08-16 02:59] LABS: ALBUMIN 2.7 g/dL (3.5-5.0); BILIRUBIN,DIRECT 0.5 mg/dL (0.0-0.3); BILIRUBIN,TOTAL 1.8 mg/dL (0.2-1.0); TOTAL PROTEIN, SERUM 6.7 g/dL (6.0-8.3)
[2019-08-16] MEDS ORDERED: OCTREOTIDE ACETATE 100 MCG/ML AMP ONE ×2 (03:11→20:40)
[2019-08-16] MEDS ORDERED: OCTREOTIDE ACETATE 200 MCG/ML 5 ML VIAL ONE ×2 (03:12→20:40)
[2019-08-16] MEDS ORDERED: SODIUM CHLORIDE 0.9% 250 ML IV ONE ×2 (03:13→20:45)
[2019-08-16 03:29] LABS: INR 1.25 (0.85-1.15); PARTIAL THROMBOPLASTIN TIME 27.9 SEC (26.3-35.5); PROTHROMBIN TIME 13.4 SEC (9.6-11.6)
[2019-08-16] MEDS ORDERED: ALBUMIN (HUMAN) 25% 100 ML IV ONE (03:33)
[2019-08-16] MEDS: SODIUM CHLORIDE 0.9% 1000ML 1,000 ML IV SCH ×2 (05:36→17:50)
[2019-08-16] MEDS ORDERED: LACTULOSE 20 GM/30 ML UDCUP PO PRN (05:45)
[2019-08-16] MEDS ORDERED: OCTREOTIDE ACETATE 1,250 MCG in SODIUM CHLORIDE 0.9% 250 ML IV SCH (05:45)
[2019-08-16] MEDS: ZOSYN 3.375GM+NS 50ML 50 ML IV SCH ×3 (06:00→22:00)
[2019-08-16] MEDS ORDERED: ZOSYN 3.375GM+NS 50ML 50 ML IV ONE ×3 (06:27→23:55)
[2019-08-16 07:57] LABS: HEMATOCRIT 24.2 % (42-54)
[2019-08-16] MEDS: PANTOPRAZOLE SODIUM 80 MG in SODIUM CHLORIDE 0.9% 100 ML IV SCH (09:00)
[2019-08-16] MEDS ORDERED: SODIUM CHLORIDE 0.9% 100 ML IV ONE ×2 (09:03→18:35)
[2019-08-16] MEDS: LACTULOSE 20 GM/30 ML UDCUP PO SCH ×2 (11:30→19:30)
--- NOTE | 2019-08-16 13:21 | NUR ---
CHART CHECK COMPLETED. Pt IS A 53 Y.O. MALE ADMITTED SECONDARY TO BLEEDING ESOPHAGEAL VARICES, HEMATEMESIS. Pt HAS PAST MEDICAL HISTORY SIGNIFICANT FOR ESOPHAGEAL VARICES, NONALCOHOLIC LIVER CIRRHOSIS, HYPERTENSION, KIDNEY STONES, CHOLECYSTECTOMY, EGD. Pt CURRENTLY NOTHING BY MOUTH DUE TO ADMITTING DIAGNOSIS. PLEASE REQUEST A FORMAL SKILLED SPEECH/SWALLOW EVALUATION IF Pt PRESENTS WITH +S/S OF ASPIRATION. Addendum: 08/16/19 at 1325 by TRICIA LIRA [facility] Amended: Links added.
--- NOTE | 2019-08-16 13:33 | NUR ---
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 CELESTE WHELAN, WANTS FACE SHEET UPLDATED DCP IS HOME, SPOUSE TO PROVIDE TRANSPORT. 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
[2019-08-16 14:19] LABS: HEMATOCRIT 31.7 % (42-54)
[2019-08-16] MEDS ORDERED: LACTULOSE 20 GM/30 ML UDCUP ONE ×2 (15:44→20:38)
[2019-08-16] MEDS ORDERED: SODIUM CHLORIDE 0.9% 200 ML IV ONE (20:41)
[2019-08-16 21:54] LABS: HEMATOCRIT 23.8 % (42-54)
[2019-08-17] VITALS (11 sets, daily range): BP systolic 105–140; BP diastolic 48–82
[2019-08-17 01:54] LABS: BASOPHILS % (AUTO) 0.7 % (0.0-5.0); EOSINOPHILS % (AUTO) 2.8 % (0.0-8.0); HEMATOCRIT 22.5 % (42-54); LYMPHOCYTES % (AUTO) 26.5 % (21.0-51.0); MEAN CORPUSCULAR HGB CONC 32.4 g/dL (32.0-36.0); MEAN CORPUSCULAR VOLUME 92.6 fL (79-99); MONOCYTES % (AUTO) 10.4 % (3.0-13.0); NEUTROPHILS % (AUTO) 59.1 % (40.0-77.0); PLATELET COUNT (AUTO) 85 K/uL (130-400); RED BLOOD CELL COUNT(AUTO) 2.43 MIL/uL (4.50-6.20); RED CELL DISTRIBUTION WIDTH 15.6 % (11.0-15.5); WHITE BLOOD COUNT (AUTO) 4.3 K/uL (4.8-10.8)
[2019-08-17] MEDS ORDERED: OCTREOTIDE ACETATE 200 MCG/ML 5 ML VIAL ONE (02:01)
[2019-08-17] MEDS ORDERED: SODIUM CHLORIDE 0.9% 250 ML IV ONE (02:02)
[2019-08-17 02:07] LABS: POTASSIUM 4.1 mmol/L (3.5-5.1)
[2019-08-17 02:11] LABS: ALBUMIN 2.6 g/dL (3.5-5.0); BILIRUBIN,TOTAL 1.8 mg/dL (0.2-1.0); TOTAL PROTEIN, SERUM 5.8 g/dL (6.0-8.3)
--- NOTE | 2019-08-17 03:16 | NUR ---
REPORT RECEIVED FROM ER . PATIENT AWAKE, ALERT , ORIENTED. WEAK , O2 ROOM AIR, LUNGS CLEAR. SEE ADMISSION ASSESSMENTS.
--- NOTE | 2019-08-17 03:45 | NUR ---
UP TO BSC FOR LOOSE MAROON COLORED STOOL.
[2019-08-17] MEDS: SODIUM CHLORIDE 0.9% 1000ML 1,000 ML IV SCH (04:33)
[2019-08-17] MEDS: LACTULOSE 20 GM/30 ML UDCUP PO SCH ×3 (04:35→20:27)
--- NOTE | 2019-08-17 04:54 | NUR ---
ASSISTED TO BSC FOR LOOSE MAROON COLORED STOOL,
[2019-08-17] MEDS: ONDANSETRON HCL 4 MG/2 ML VIAL IV PRN ×2 (05:03→22:45)
--- NOTE | 2019-08-17 05:03 | NUR ---
ZOFRAN GIVEN FOR NAUSEA
[2019-08-17] MEDS: ZOSYN 3.375GM+NS 50ML 50 ML IV SCH ×2 (05:51→22:37)
--- NOTE | 2019-08-17 07:00 | NUR ---
CARE ENDORSED TO MATRA SALINAS RN
--- NOTE | 2019-08-17 08:30 | NUR ---
DR. HERNANDEZ [facility] AND WILL AWAIT THE RETURN PHONE CALL TO ADVISE OF CONSULT. PT CONTINUES TO HAVE WATERY BURGUNDY STOOL.
[2019-08-17] MEDS: PANTOPRAZOLE SODIUM 80 MG in SODIUM CHLORIDE 0.9% 100 ML IV SCH (09:00)
--- NOTE | 2019-08-17 10:20 | NUR ---
DR. HERNANDEZ CALLED BACK AND WAS ADVISED OF CONSULT. WILL COME IN TO SEE PATIENT.
[2019-08-17] MEDS ORDERED: CYAN10007 IJ (11:07)
[2019-08-17] MEDS ORDERED: ERGO1POW10 (11:43)
[2019-08-17] MEDS ORDERED: MEDR (11:59)
[2019-08-17] MEDS ORDERED: TAMS-1 PO (11:59)
[2019-08-17] MEDS ORDERED: MAGN250T10 PO (11:59)
[2019-08-17] MEDS ORDERED: PRAS25CA9 PO (11:59)
[2019-08-17] MEDS ORDERED: MECL-160 PO (11:59)
[2019-08-17] MEDS ORDERED: ALPH600C3 PO (11:59)
[2019-08-17] MEDS ORDERED: CLAR-44 PO (11:59)
[2019-08-17] MEDS ORDERED: ACET600C3 PO (11:59)
[2019-08-17] MEDS ORDERED: MILK500C PO (11:59)
[2019-08-17] MEDS ORDERED: IRON1CAP32 PO (11:59)
[2019-08-17] MEDS: PROPRANOLOL HCL 10 MG TAB PO SCH (20:27)
[2019-08-17] MEDS: DEXTROSE 5 %-0.45 % NACL 1,000 ML IV SCH (20:28)
--- NOTE | 2019-08-17 22:26 | NUR ---
PATIENT RECEIVED IN BED, AAOX3, NO ACUTE DISTRESS NOTED. POC DISCUSSED WITH PATIENT. PLAN FOR EGD WITH MAC TOMORROW WITH DR. HERNANDEZ. PATIENT IS TO BE NPO AFTER MN. CONTINUES WITH SANDOSTATIN AND PROTONIX PER PROTOCOL. D5 1/2 NS @ 75 ML/HR INFUSING. PT VOICED AGREEMENT. WILL CONT TO MONITOR CLOSELY.
[2019-08-18] VITALS (22 sets, daily range): BP systolic 92–126; BP diastolic 46–71
[2019-08-18 04:39] LABS: ALBUMIN 2.5 g/dL (3.5-5.0); BASOPHILS % (AUTO) 0.7 % (0.0-5.0); BILIRUBIN,TOTAL 1.5 mg/dL (0.2-1.0); CREATININE 1.2 mg/dL (0.5-1.5); EOSINOPHILS % (AUTO) 3.4 % (0.0-8.0); HEMATOCRIT 21.9 % (42-54); LYMPHOCYTES % (AUTO) 27.3 % (21.0-51.0); MEAN CORPUSCULAR HEMOGLOBIN 30.7 pg (27.0-33.0); MEAN CORPUSCULAR HGB CONC 32.4 g/dL (32.0-36.0); MEAN CORPUSCULAR VOLUME 94.8 fL (79-99); MONOCYTES % (AUTO) 6.9 % (3.0-13.0); NEUTROPHILS % (AUTO) 61.3 % (40.0-77.0); PLATELET COUNT (AUTO) 112 K/uL (130-400); POTASSIUM 3.8 mmol/L (3.5-5.1); RED BLOOD CELL COUNT(AUTO) 2.31 MIL/uL (4.50-6.20); RED CELL DISTRIBUTION WIDTH 15.9 % (11.0-15.5); TOTAL PROTEIN, SERUM 5.6 g/dL (6.0-8.3); WHITE BLOOD COUNT (AUTO) 5.5 K/uL (4.8-10.8)
[2019-08-18] MEDS ORDERED: PROPOFOL 10 MG/ML 20ML VIAL IV ONE (07:38)
[2019-08-18] MEDS ORDERED: GLYCOPYRROLATE 0.2 MG/ML 5 ML VIAL ONE (07:38)
[2019-08-18] MEDS ORDERED: LIDOCAINE HCL 1% 20 ML VIAL ONE (07:38)
--- NOTE | 2019-08-18 07:43 | NUR ---
TO GI LAB VIA BED.
[2019-08-18] MEDS ORDERED: EPHEDRINE SULFATE 50 MG/ML AMPULE ONE (07:49)
[2019-08-18] MEDS: LOSARTAN 50 MG TABLET PO SCH (09:00)
--- NOTE | 2019-08-18 09:30 | NUR ---
RESTING IN BED WITH EYES CLOSED, RESP.'S EVEN AND UNLABORED. CALL LIGHT WITHIN REACH.
[2019-08-18 11:29] LABS: HEMATOCRIT 20.9 % (42-54)
[2019-08-18] MEDS: TAMSULOSIN HCL 0.4 MG CAP.ER.24H PO SCH (12:23)
[2019-08-18] MEDS: DEXTROSE 5 %-0.45 % NACL 1,000 ML IV SCH ×2 (12:24→20:31)
[2019-08-18] MEDS: SPIRONOLACTONE 25 MG TAB PO SCH (12:24)
[2019-08-18] MEDS: PROPRANOLOL HCL 10 MG TAB PO SCH ×2 (12:25→20:13)
[2019-08-18] MEDS: FUROSEMIDE 20 MG TABLET PO SCH (12:25)
[2019-08-18] MEDS: LACTULOSE 20 GM/30 ML UDCUP PO SCH ×2 (12:25→19:30)
[2019-08-18] MEDS: PANTOPRAZOLE SODIUM 40 MG TABLET.DR PO SCH ×2 (12:25→20:14)
[2019-08-18] MEDS: ZOSYN 3.375GM+NS 50ML 50 ML IV SCH ×2 (13:09→20:32)
--- NOTE | 2019-08-18 14:10 | NUR ---
PRBC TRANSFUSION STARTED AFTER S/S OF ADVERSE REACTION EXPLAINED, VERBALIZED UNDERSTANDING. CALL LIGHT WITHIN REACH. THIS NURSE PRESENT FOR FIRST 5MIN OF TRANSFUSION.
--- NOTE | 2019-08-18 17:10 | NUR ---
PRBC TRANSFUSION COMPLETED. TOLERATED W/O C/O.
[2019-08-18] MEDS ORDERED: MORPHINE SULFATE 2 MG/ML 1ML SYG IVP PRN (20:00)
[2019-08-18] MEDS ORDERED: MORPHINE SULFATE 2 MG/ML 1ML SYG ONE (20:10)
[2019-08-18 22:08] LABS: HEMATOCRIT 24.1 % (42-54)
[2019-08-19] VITALS (7 sets, daily range): BP systolic 88–100; BP diastolic 41–59
[2019-08-19] MEDS: LACTULOSE 20 GM/30 ML UDCUP PO SCH ×3 (03:32→22:07)
[2019-08-19 03:46] LABS: BASOPHILS % (AUTO) 0.6 % (0.0-5.0); EOSINOPHILS % (AUTO) 3.4 % (0.0-8.0); HEMATOCRIT 22.4 % (42-54); LYMPHOCYTES % (AUTO) 31.9 % (21.0-51.0); MEAN CORPUSCULAR HEMOGLOBIN 29.7 pg (27.0-33.0); MEAN CORPUSCULAR HGB CONC 32.6 g/dL (32.0-36.0); MEAN CORPUSCULAR VOLUME 91.1 fL (79-99); MONOCYTES % (AUTO) 8.1 % (3.0-13.0); NEUTROPHILS % (AUTO) 55.7 % (40.0-77.0); PLATELET COUNT (AUTO) 80 K/uL (130-400); RED BLOOD CELL COUNT(AUTO) 2.46 MIL/uL (4.50-6.20); RED CELL DISTRIBUTION WIDTH 15.9 % (11.0-15.5); WHITE BLOOD COUNT (AUTO) 3.2 K/uL (4.8-10.8)
[2019-08-19 04:02] LABS: ALBUMIN 2.4 g/dL (3.5-5.0); BILIRUBIN,TOTAL 2.7 mg/dL (0.2-1.0); POTASSIUM 3.6 mmol/L (3.5-5.1); TOTAL PROTEIN, SERUM 5.2 g/dL (6.0-8.3)
[2019-08-19] MEDS: ZOSYN 3.375GM+NS 50ML 50 ML IV SCH ×3 (06:16→22:07)
[2019-08-19] MEDS ORDERED: LACT10SO9 PO (08:42)
[2019-08-19] MEDS ORDERED: PROP10TA10 PO (08:42)
[2019-08-19] MEDS ORDERED: PANT40TA PO (08:42)
[2019-08-19] MEDS: TAMSULOSIN HCL 0.4 MG CAP.ER.24H PO SCH (08:53)
[2019-08-19] MEDS: PANTOPRAZOLE SODIUM 40 MG TABLET.DR PO SCH ×2 (08:53→22:07)
[2019-08-19] MEDS: LOSARTAN 50 MG TABLET PO SCH ×2 (08:53→08:58)
[2019-08-19] MEDS: SPIRONOLACTONE 25 MG TAB PO SCH (08:53)
[2019-08-19] MEDS: FUROSEMIDE 20 MG TABLET PO SCH (08:54)
[2019-08-19] MEDS: PROPRANOLOL HCL 10 MG TAB PO SCH ×2 (08:54→22:07)
[2019-08-19] MEDS: DEXTROSE 5 %-0.45 % NACL 1,000 ML IV SCH (08:54)
[2019-08-19 08:55] LABS: HEMATOCRIT 25.3 % (42-54)
[2019-08-20] MEDS: LACTULOSE 20 GM/30 ML UDCUP PO SCH ×2 (03:30→11:36)
[2019-08-20 03:33] VITALS: BP 85/40
[2019-08-20 04:40] LABS: BASOPHILS % (AUTO) 0.3 % (0.0-5.0); EOSINOPHILS % (AUTO) 1.5 % (0.0-8.0); HEMATOCRIT 21.1 % (42-54); LYMPHOCYTES % (AUTO) 32.5 % (21.0-51.0); MEAN CORPUSCULAR HEMOGLOBIN 30.7 pg (27.0-33.0); MEAN CORPUSCULAR HGB CONC 33.6 g/dL (32.0-36.0); MEAN CORPUSCULAR VOLUME 91.3 fL (79-99); MONOCYTES % (AUTO) 9.8 % (3.0-13.0); NEUTROPHILS % (AUTO) 55.6 % (40.0-77.0); PLATELET COUNT (AUTO) 82 K/uL (130-400); RED BLOOD CELL COUNT(AUTO) 2.31 MIL/uL (4.50-6.20); RED CELL DISTRIBUTION WIDTH 15.5 % (11.0-15.5); WHITE BLOOD COUNT (AUTO) 3.3 K/uL (4.8-10.8)
[2019-08-20 04:55] LABS: ALBUMIN 2.3 g/dL (3.5-5.0); BILIRUBIN,TOTAL 1.6 mg/dL (0.2-1.0); POTASSIUM 3.4 mmol/L (3.5-5.1); TOTAL PROTEIN, SERUM 5.2 g/dL (6.0-8.3)
[2019-08-20] MEDS: ZOSYN 3.375GM+NS 50ML 50 ML IV SCH ×2 (06:36→14:00)
[2019-08-20 08:00] VITALS: BP 92/48
[2019-08-20] MEDS: TAMSULOSIN HCL 0.4 MG CAP.ER.24H PO SCH (09:26)
[2019-08-20] MEDS: PROPRANOLOL HCL 10 MG TAB PO SCH (09:26)
[2019-08-20] MEDS: SPIRONOLACTONE 25 MG TAB PO SCH (09:27)
[2019-08-20] MEDS: FUROSEMIDE 20 MG TABLET PO SCH (09:27)
[2019-08-20] MEDS: PANTOPRAZOLE SODIUM 40 MG TABLET.DR PO SCH (09:27)
[2019-08-20 12:00] VITALS: BP 84/43
[2019-08-20 12:57] VITALS: BP 89/42
[2019-08-20 14:14] LABS: HEMATOCRIT 23.7 % (42-54)
== END 2019-08-20 17:30 | disposition home or self-care (01) | DRG 441 ==
LOC: EDH 02:23 → EDHIP 05:36 → DAHIP 08-17 01:59
PROVIDERS: ADMIT Hospitalist; ATTEND Hospitalist
PROC: 30233N1 Transfusion of Nonautologous Red Blood Cells into Peripheral Vein, Percutaneous Approach (ICD-10-PCS; principal; 2019-08-18)
PROC: 06L38CZ Occlusion of Esophageal Vein with Extraluminal Device, Via Natural or Artificial Opening Endoscopic (ICD-10-PCS; 2019-08-18)
DX: K72.00 Acute and subacute hepatic failure without coma (principal); I85.11 Secondary esophageal varices with bleeding; D62 Acute posthemorrhagic anemia; K76.6 Portal hypertension; K74.60 Unspecified cirrhosis of liver; F02.80 Dementia in other diseases classified elsewhere, unspecified severity, without behavioral disturbance, psychotic disturbance, mood disturbance, and anxiety; Z03.818 Encounter for observation for suspected exposure to other biological agents ruled out
CPT/HCPCS: 36415; 36430; 43244; 71045; 76700; 80048; 80053; 80076; 82140; 82550; 82728; 82948; 83605; 83615; 83690; 84145; 85014; 85018; 85025; 85378; 85610; 85730; 86140; 86850; 86900; 86901; 86922; 87040; 93005; 97039; 99291; C9113; G0378; J0696; J2354; J2405; J2543; J2704; J3490; J7030; J7042; J7050; P9016; P9046; U0003

== ENCOUNTER 2019-08-22 00:27 | Emergency (ER) | payer BC ==
[~2019-08-22 00:27] MED LIST changes: +ACET600C3 PO; +ALPH600C3 PO; -CEPH-578 PO; +CYAN10007 IJ; +ERGO1POW10; +IRON1CAP32 PO; +LACT10SO9 PO; +MAGN250T10 PO; +MECL-160 PO; +MILK500C PO; +PANT40TA PO; +PRAS25CA9 PO
[2019-08-22 01:28] LABS: BASOPHILS % (AUTO) 1.1 % (0.0-5.0); EOSINOPHILS % (AUTO) 2.8 % (0.0-8.0); LYMPHOCYTES % (AUTO) 37.3 % (21.0-51.0); MEAN CORPUSCULAR HEMOGLOBIN 30.6 pg (27.0-33.0); MEAN CORPUSCULAR HGB CONC 33.5 g/dL (32.0-36.0); MEAN CORPUSCULAR VOLUME 91.3 fL (79-99); MONOCYTES % (AUTO) 9.9 % (3.0-13.0); NEUTROPHILS % (AUTO) 48.9 % (40.0-77.0); PLATELET COUNT (AUTO) 105 K/uL (130-400); RED BLOOD CELL COUNT(AUTO) 2.52 MIL/uL (4.50-6.20); RED CELL DISTRIBUTION WIDTH 15.2 % (11.0-15.5); WHITE BLOOD COUNT (AUTO) 2.8 K/uL (4.8-10.8)
[2019-08-22 01:37] LABS: CREATININE 0.9 mg/dL (0.5-1.5); POTASSIUM 4.1 mmol/L (3.5-5.1)
[2019-08-22 02:11] LABS: LYMPHOCYTES % (MANUAL) 40 % (22-44); MAN.DIFF COMMENT-IMPRESSION MANUAL DIFFERENTIAL; PLATELET MORPHOLOGY COMMENT SLIGHTLY DECREASED; SEGMENTED NEUTROPHILS % 60 % (40-70)
== END 2019-08-22 02:55 | disposition home or self-care (01) ==
LOC: EDH 00:27
DX: I95.9 Hypotension, unspecified (principal); I10 Essential (primary) hypertension; Z90.49 Acquired absence of other specified parts of digestive tract; Z87.442 Personal history of urinary calculi
CPT/HCPCS: 36415; 80048; 85025

== ENCOUNTER 2019-09-30 10:10 | Inpatient (IN) | payer BC ==
[~2019-09-30] VITALS: Ht 175.3 cm; Wt 116.5 kg
[~2019-09-30 10:10] MED LIST changes: -PANT40TA25 PO; +PANT40TA54 PO
[2019-09-30 10:38] LABS: BASOPHILS % (AUTO) 0.5 % (0.0-5.0); EOSINOPHILS % (AUTO) 2.2 % (0.0-8.0); HEMATOCRIT 36.3 % (42-54); LYMPHOCYTES % (AUTO) 12.6 % (21.0-51.0); MEAN CORPUSCULAR HEMOGLOBIN 28.9 pg (27.0-33.0); MEAN CORPUSCULAR VOLUME 90.5 fL (79-99); MONOCYTES % (AUTO) 8.5 % (3.0-13.0); PLATELET COUNT (AUTO) 108 K/uL (130-400); RED BLOOD CELL COUNT(AUTO) 4.01 MIL/uL (4.50-6.20); RED CELL DISTRIBUTION WIDTH 15.7 % (11.0-15.5); WHITE BLOOD COUNT (AUTO) 5.9 K/uL (4.8-10.8)
[2019-09-30 10:50] LABS: CREATININE 0.8 mg/dL (0.5-1.5); POTASSIUM 4.2 mmol/L (3.5-5.1)
[2019-09-30 10:51] LABS: INR 1.23 (0.85-1.15); PARTIAL THROMBOPLASTIN TIME 31.6 SEC (26.3-35.5); PROTHROMBIN TIME 13.2 SEC (9.6-11.6)
[2019-09-30 10:57] LABS: ALBUMIN 2.8 g/dL (3.5-5.0); BILIRUBIN,DIRECT 0.4 mg/dL (0.0-0.3); BILIRUBIN,TOTAL 1.7 mg/dL (0.2-1.0); TOTAL PROTEIN, SERUM 7.2 g/dL (6.0-8.3)
[2019-09-30] MEDS ORDERED: ONDANSETRON HCL 4 MG/2 ML VIAL ONE (11:35)
[2019-09-30] MEDS ORDERED: MORPHINE SULFATE 4 MG/1ML SYG ONE (11:36)
[2019-09-30] MEDS ORDERED: ONDANSETRON HCL 4 MG/2 ML VIAL IVP PRN (16:00)
[2019-09-30] MEDS ORDERED: HYDRALAZINE HCL 20 MG/ML VIAL IV PRN (16:00)
[2019-09-30] MEDS ORDERED: ACETAMINOPHEN 325 MG TAB PO PRN (16:00)
[2019-09-30] MEDS ORDERED: LACTULOSE 20 GM/30 ML UDCUP PO PRN (16:00)
[2019-09-30] MEDS: NEOMYCIN SULFATE 500 MG TAB PO SCH (21:00)
--- NOTE | 2019-09-30 22:10 | NUR ---
PATIENT ARRIVED FROM ER, AAOX3, NO ACUTE DISTRESS NOTED. INITIAL COMPLIANT IS ABD PAIN D/T ASCITIES. PT WITH HX OF CIRRHOSIS. PT WAS SCHEDULED TO HAVE A PARACENTESIS ON TUESDAY, YET D/T TO THE INCREASING PAIN, HE CAME TO EMERGENCY ROOM. PLAN FOR PARACENTESIS WITH IR TOMORROW. POC DISCUSSED WITH PATIENT. WILL CONT TO MONITOR CLOSELY. CALL GOYAL PLACED WITHIN REACH, WILL CONT TO MONITOR. Addendum: 10/01/19 at 0222 by MARTA JEAN BAPTISTE RN RN Amended: Links added.
[2019-09-30 22:21] VITALS: BP 137/85
[2019-09-30] MEDS ORDERED: RIFA550T PO (22:32)
[2019-09-30] MEDS: LACTULOSE 20 GM/30 ML UDCUP PO SCH (23:00)
[2019-09-30] MEDS: HYDROMORPHONE HCL 0.5 MG/0.5 ML ML IVP PRN (23:02)
[2019-09-30] MEDS: MECLIZINE HCL 25 MG TABLET PO SCH (23:36)
[2019-09-30 23:43] VITALS: BP 126/79
[2019-10-01 03:29] VITALS: BP 118/71
[2019-10-01 05:18] LABS: HEMATOCRIT 31.3 % (42-54); MEAN CORPUSCULAR HEMOGLOBIN 29.3 pg (27.0-33.0); MEAN CORPUSCULAR HGB CONC 32.3 g/dL (32.0-36.0); MEAN CORPUSCULAR VOLUME 90.7 fL (79-99); RED BLOOD CELL COUNT(AUTO) 3.45 MIL/uL (4.50-6.20); RED CELL DISTRIBUTION WIDTH 15.6 % (11.0-15.5); WHITE BLOOD COUNT (AUTO) 5.5 K/uL (4.8-10.8)
[2019-10-01 05:31] LABS: INR 1.32 (0.85-1.15); PARTIAL THROMBOPLASTIN TIME 35.2 SEC (26.3-35.5); PROTHROMBIN TIME 14.1 SEC (9.6-11.6)
[2019-10-01 05:35] LABS: ALBUMIN 2.3 g/dL (3.5-5.0); BILIRUBIN,DIRECT 0.6 mg/dL (0.0-0.3); BILIRUBIN,TOTAL 2.1 mg/dL (0.2-1.0); CREATININE 0.8 mg/dL (0.5-1.5); MAGNESIUM 1.9 mg/dL (1.80-2.40); PHOSPHORUS 3.4 mg/dL (2.5-4.9); TOTAL PROTEIN, SERUM 6.1 g/dL (6.0-8.3)
[2019-10-01] MEDS: MECLIZINE HCL 25 MG TABLET PO SCH ×3 (05:48→18:12)
[2019-10-01] MEDS: LACTULOSE 20 GM/30 ML UDCUP PO SCH ×3 (07:00→22:55)
[2019-10-01 08:16] VITALS: BP 126/81
[2019-10-01] MEDS: INTEGRA PLUS PO SCH (09:00)
[2019-10-01] MEDS: PANTOPRAZOLE SODIUM 40 MG TABLET.DR PO SCH (09:00)
[2019-10-01] MEDS: **HM** MILK THISTLE 1000MG PO SCH (09:00)
[2019-10-01] MEDS ORDERED: ERGOCALCIFEROL PO SCH (09:00)
[2019-10-01] MEDS: ALPHA LIPOIC ACID 600 MG PO SCH (09:00)
[2019-10-01] MEDS ORDERED: PANTOPRAZOLE SODIUM 40 MG TABLET.DR PO SCH (09:00)
--- NOTE | 2019-10-01 09:15 | NUR ---
RE: PARACENTESIS PATIENT SCHEDULED FOR PARACENTESIS. COVID-[address] PCR RESULTS PENDING AND DR Priya BURNS NOTIFIED. PROCEDURE RESCHEDULED UNTIL LAB RESULTS COME IN. Machelle JEAN BAPTISTE RN NOTIFIED
--- NOTE | 2019-10-01 10:00 | NUR ---
JENNIFER Leung HERE ,AND UPDATE PT IS NOT HAVING HIS PARACENTESIS PROCEDURE . TODAY/ DUE TO PENDING COVID PCR/ PT WAS ASSESS FOR ANY CONCERNS. .
[2019-10-01] MEDS: ACETYLCYSTEINE 600 MG CAPSULE PO SCH (10:02)
[2019-10-01] MEDS: SPIRONOLACTONE 25 MG TAB PO SCH (10:03)
[2019-10-01] MEDS: MAGNESIUM OXIDE 400 MG TABLET PO SCH (10:03)
[2019-10-01] MEDS: RIFAXIMIN 550 MG TABLET PO SCH ×2 (10:04→19:43)
[2019-10-01] MEDS: FUROSEMIDE 20 MG TABLET PO SCH (10:05)
[2019-10-01] MEDS: NEOMYCIN SULFATE 500 MG TAB PO SCH ×3 (10:05→19:43)
[2019-10-01] MEDS: DHEA 25 MG PO SCH (10:06)
[2019-10-01 15:13] VITALS: BP 122/71
--- NOTE | 2019-10-01 15:57 | NUR ---
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 Addendum: 10/01/19 at 1601 by VICTORINA GERARD RN CM Amended: Links added.
[2019-10-01] MEDS: HYDROMORPHONE HCL 0.5 MG/0.5 ML ML IVP PRN (18:15)
[2019-10-01 18:16] VITALS: BP 105/58
[2019-10-01 20:00] VITALS: BP 133/87
[2019-10-01 23:34] VITALS: BP 130/73
[2019-10-02] VITALS (12 sets, daily range): BP systolic 108–135; BP diastolic 67–83
[2019-10-02] MEDS: MECLIZINE HCL 25 MG TABLET PO SCH ×5 (01:29→22:56)
[2019-10-02 03:46] LABS: BASOPHILS % (AUTO) 0.5 % (0.0-5.0); EOSINOPHILS % (AUTO) 4.1 % (0.0-8.0); LYMPHOCYTES % (AUTO) 20.8 % (21.0-51.0); MEAN CORPUSCULAR HEMOGLOBIN 29.3 pg (27.0-33.0); MEAN CORPUSCULAR HGB CONC 32.6 g/dL (32.0-36.0); MEAN CORPUSCULAR VOLUME 89.9 fL (79-99); MONOCYTES % (AUTO) 12.8 % (3.0-13.0); NEUTROPHILS % (AUTO) 61.3 % (40.0-77.0); PLATELET COUNT (AUTO) 93 K/uL (130-400); RED BLOOD CELL COUNT(AUTO) 3.45 MIL/uL (4.50-6.20); RED CELL DISTRIBUTION WIDTH 15.6 % (11.0-15.5); WHITE BLOOD COUNT (AUTO) 4.4 K/uL (4.8-10.8)
[2019-10-02 04:00] LABS: ALBUMIN 2.4 g/dL (3.5-5.0); BILIRUBIN,TOTAL 1.3 mg/dL (0.2-1.0); CREATININE 0.8 mg/dL (0.5-1.5); POTASSIUM 3.8 mmol/L (3.5-5.1); TOTAL PROTEIN, SERUM 6.3 g/dL (6.0-8.3)
[2019-10-02] MEDS: LACTULOSE 20 GM/30 ML UDCUP PO SCH ×3 (05:16→22:49)
--- NOTE | 2019-10-02 08:20 | NUR ---
TO I.R. VIA WHEEL CHAIR FOR THE PARACENTESIS PROCEDURE WITH STAFF
[2019-10-02] MEDS: DHEA 25 MG PO SCH (09:00)
[2019-10-02] MEDS: **HM** MILK THISTLE 1000MG PO SCH (09:00)
[2019-10-02] MEDS: INTEGRA PLUS PO SCH (09:00)
[2019-10-02] MEDS: ALPHA LIPOIC ACID 600 MG PO SCH (09:00)
--- NOTE | 2019-10-02 09:05 | NUR ---
US GUIDED PARACENTESIS US GUIDED PARACENTESIS PERFORMED BY DR. KUMAR. PUNCTURE SITE TO LLQ. TOTAL REMOVED 5.5 LITER OF YELLOW CLEAR ASCITES FLUID . SPECIMEN SEND TO LAB. AFTER COMPLETION CATHETER REMOVED DRESSING APPLIED, NO BLEEDING OR HEMATOMA TO SITE. PT SARBJIT WELL WITH NO ADVERSE REACTIONS . PENDING ALBUMIN 25% 50 GRAMS TO BE GIVEN PER PROTOCOL. REPORT GIVEN TO DANII JEAN BAPTISTE RN TO ADMINISTER . PT TRANSFERRED BACK TO ROOM 308. PROCEDURE STARTED AT 0908- ENDED AT 0945
[2019-10-02] MEDS ORDERED: ALBUMIN (HUMAN) 25% 100 ML IV SCH (09:45)
--- NOTE | 2019-10-02 10:20 | NUR ---
BACK FROM THE PARACENTESIS PROCEDURE,, , PT AAOX 3 REVIEW POSTOP V/S SM DRSG TO HIS LT LOWER ABD DRY AND CLEAN, CALL LIGHT IN REACH ..
[2019-10-02] MEDS: ACETYLCYSTEINE 600 MG CAPSULE PO SCH (11:38)
[2019-10-02] MEDS: MAGNESIUM OXIDE 400 MG TABLET PO SCH (11:38)
[2019-10-02] MEDS: NEOMYCIN SULFATE 500 MG TAB PO SCH ×3 (11:38→20:45)
[2019-10-02] MEDS: SPIRONOLACTONE 25 MG TAB PO SCH ×3 (11:38→20:45)
[2019-10-02] MEDS: PANTOPRAZOLE SODIUM 40 MG TABLET.DR PO SCH (11:38)
[2019-10-02] MEDS: RIFAXIMIN 550 MG TABLET PO SCH ×2 (11:38→20:45)
[2019-10-02] MEDS: FUROSEMIDE 20 MG TABLET PO SCH (11:39)
[2019-10-02] MEDS: LEVOFLOXACIN 500 MG TABLET PO SCH (11:59)
[2019-10-02 13:12] LABS: APPEARANCE BODY FLUID CLEAR (CLEAR); COLOR,BODY FLUID YELLOW (LT YELLOW); SPECIMENTYPE,BODY FLUID ASCITES; TOTAL VOLUME,BODY FLUID 5500 mL
[2019-10-02 13:16] LABS: BODY FLUID RBC 472 /cu. mm.; BODY FLUID WBC 401 /cu. mm.
[2019-10-02 13:47] LABS: BF EOSINOPHIL 8 %; BF LYMPHOCYTE 26 %; BF MESOTHELIAL 18 %; BF MONOCYTE 2 %
[2019-10-03] VITALS: BP 127/73
[2019-10-03 04:00] VITALS: BP 120/78
[2019-10-03 05:19] LABS: HEMATOCRIT 31.5 % (42-54); MEAN CORPUSCULAR HEMOGLOBIN 29.4 pg (27.0-33.0); MEAN CORPUSCULAR HGB CONC 32.7 g/dL (32.0-36.0); RED BLOOD CELL COUNT(AUTO) 3.5 MIL/uL (4.50-6.20); RED CELL DISTRIBUTION WIDTH 15.5 % (11.0-15.5); WHITE BLOOD COUNT (AUTO) 3.1 K/uL (4.8-10.8)
[2019-10-03] MEDS: MECLIZINE HCL 25 MG TABLET PO SCH ×2 (05:43→12:00)
[2019-10-03 05:46] LABS: CREATININE 0.7 mg/dL (0.5-1.5); POTASSIUM 3.8 mmol/L (3.5-5.1)
[2019-10-03] MEDS: LACTULOSE 20 GM/30 ML UDCUP PO SCH (06:34)
[2019-10-03 07:30] VITALS: BP 125/76
[2019-10-03] MEDS ORDERED: LEVO500T2 PO (08:52)
[2019-10-03] MEDS: DHEA 25 MG PO SCH (09:00)
[2019-10-03] MEDS: **HM** MILK THISTLE 1000MG PO SCH (09:00)
[2019-10-03] MEDS: INTEGRA PLUS PO SCH (09:00)
[2019-10-03] MEDS ORDERED: FUROSEMIDE 20 MG TABLET PO SCH (09:00)
[2019-10-03] MEDS: ALPHA LIPOIC ACID 600 MG PO SCH (09:00)
[2019-10-03] MEDS: MAGNESIUM OXIDE 400 MG TABLET PO SCH (10:53)
[2019-10-03] MEDS: RIFAXIMIN 550 MG TABLET PO SCH (10:53)
[2019-10-03] MEDS: ACETYLCYSTEINE 600 MG CAPSULE PO SCH (10:53)
[2019-10-03] MEDS: SPIRONOLACTONE 25 MG TAB PO SCH (10:54)
[2019-10-03] MEDS: PANTOPRAZOLE SODIUM 40 MG TABLET.DR PO SCH (10:54)
[2019-10-03] MEDS: NEOMYCIN SULFATE 500 MG TAB PO SCH (10:54)
[2019-10-03 11:00] VITALS: BP 117/72
--- NOTE | 2019-10-03 13:00 | NUR ---
NOTE DISCHARGE INSTRUCTIONS GIVEN TO PATIENT AT THIS TIME. VERBALIZED UNDERSTANDING. REFER TO DC SUMMARY FOR DETAILS.
[2019-10-03] MEDS: LEVOFLOXACIN 500 MG TABLET PO SCH (13:04)
[2019-10-07] MEDS ORDERED: CYANOCOBALAMIN (VITAMIN B-12) 1000 MCG/ML 1ML VIAL IM SCH (09:00)
== END 2019-10-03 13:35 | disposition home or self-care (01) | DRG 432 ==
LOC: EDH 10:10 → EDHIP 15:09 → OBSVTOIN 15:09 → 3BH 21:27
PROVIDERS: ADMIT Internal Medicine Critical Care Medicine; ATTEND Internal Medicine Critical Care Medicine
PROC: 0W9G3ZZ Drainage of Peritoneal Cavity, Percutaneous Approach (ICD-10-PCS; principal; 2019-10-02)
DX: K74.69 Other cirrhosis of liver (principal); K65.2 Spontaneous bacterial peritonitis; R18.8 Other ascites; E72.20 Disorder of urea cycle metabolism, unspecified; E66.01 Morbid (severe) obesity due to excess calories; I10 Essential (primary) hypertension; Z20.828 Contact with and (suspected) exposure to other viral communicable diseases; Z87.442 Personal history of urinary calculi; Z79.899 Other long term (current) drug therapy; Z68.37 Body mass index [BMI] 37.0-37.9, adult; Z90.49 Acquired absence of other specified parts of digestive tract
CPT/HCPCS: 36415; 49083; 71045; 74176; 80048; 80053; 80076; 82140; 83690; 83735; 84100; 84484; 85025; 85027; 85610; 85730; 87071; 87205; 87426; 89051; 93005; 97039; G0378; J1170; J2270; J2405; P9046; U0003

== ENCOUNTER 2019-11-05 19:23 | Emergency (ER) | payer OTHER ==
[~2019-11-05 19:23] MED LIST changes: -GABA-529 PO; +LEVO500T2 PO; -LOSA50TA64 PO; -PANT40TA54 PO; -PROP10TA10 PO; +RIFA550T PO; -TAMS-1 PO
[2019-11-05 20:24] LABS: BASOPHILS % (AUTO) 0.5 % (0.0-5.0); EOSINOPHILS % (AUTO) 5.8 % (0.0-8.0); HEMATOCRIT 37.6 % (42-54); MEAN CORPUSCULAR HGB CONC 32.7 g/dL (32.0-36.0); MEAN CORPUSCULAR VOLUME 91.7 fL (79-99); MONOCYTES % (AUTO) 9.3 % (3.0-13.0); NEUTROPHILS % (AUTO) 62.1 % (40.0-77.0); PLATELET COUNT (AUTO) 101 K/uL (130-400); RED CELL DISTRIBUTION WIDTH 16.8 % (11.0-15.5)
[2019-11-05 20:37] LABS: INR 1.21 (0.85-1.15); PARTIAL THROMBOPLASTIN TIME 29.8 SEC (26.3-35.5)
[2019-11-05 20:42] LABS: CREATININE 0.9 mg/dL (0.5-1.5); POTASSIUM 4.3 mmol/L (3.5-5.1)
[2019-11-05 20:45] LABS: ALBUMIN 2.9 g/dL (3.5-5.0); BILIRUBIN,DIRECT 0.4 mg/dL (0.0-0.3); BILIRUBIN,TOTAL 1.2 mg/dL (0.2-1.0); TOTAL PROTEIN, SERUM 7.4 g/dL (6.0-8.3)
[2019-11-05] MEDS ORDERED: LACTULOSE 20 GM/30 ML UDCUP ONE (21:10)
== END 2019-11-05 21:32 | disposition home or self-care (01) ==
LOC: EDH 19:23
DX: K74.69 Other cirrhosis of liver (principal); R18.8 Other ascites; I10 Essential (primary) hypertension; Z90.49 Acquired absence of other specified parts of digestive tract
CPT/HCPCS: 36415; 71045; 80048; 80076; 82140; 82550; 83690; 84484; 85025; 85610; 85730; 93005

== ENCOUNTER → 2019-11-20 | Outpatient (CLI) | payer OTHER ==
[~2019-11-20] MED LIST changes: +ALBUMIN (HUMAN) 25% 200 ML IV SCH
== END | disposition home or self-care (01) ==
LOC: RAH 07:50
PROVIDERS: ATTEND Family Medicine
DX: K70.31 Alcoholic cirrhosis of liver with ascites (principal)
CPT/HCPCS: 76705

== ENCOUNTER 2019-11-28 18:34 | Emergency (ER) | payer OTHER ==
[~2019-11-28 18:34] MED LIST changes: -ALBUMIN (HUMAN) 25% 200 ML IV SCH
[2019-11-28 19:14] LABS: BASOPHILS % (AUTO) 0.7 % (0.0-5.0); EOSINOPHILS % (AUTO) 5.5 % (0.0-8.0); HEMATOCRIT 34.3 % (42-54); MEAN CORPUSCULAR HEMOGLOBIN 30.9 pg (27.0-33.0); MEAN CORPUSCULAR HGB CONC 34.1 g/dL (32.0-36.0); MEAN CORPUSCULAR VOLUME 90.5 fL (79-99); MONOCYTES % (AUTO) 9.1 % (3.0-13.0); NEUTROPHILS % (AUTO) 58.2 % (40.0-77.0); PLATELET COUNT (AUTO) 94 K/uL (130-400); RED BLOOD CELL COUNT(AUTO) 3.79 MIL/uL (4.50-6.20); RED CELL DISTRIBUTION WIDTH 16.8 % (11.0-15.5); WHITE BLOOD COUNT (AUTO) 4.2 K/uL (4.8-10.8)
[2019-11-28] MEDS ORDERED: PANTOPRAZOLE 40 MG/VIAL ONE (19:18)
[2019-11-28 19:22] LABS: CREATININE 0.8 mg/dL (0.5-1.5); POTASSIUM 3.9 mmol/L (3.5-5.1)
[2019-11-28 19:26] LABS: ALBUMIN 2.7 g/dL (3.5-5.0); BILIRUBIN,TOTAL 1.5 mg/dL (0.2-1.0); INR 1.19 (0.85-1.15); PARTIAL THROMBOPLASTIN TIME 29.5 SEC (26.3-35.5); PROTHROMBIN TIME 12.8 SEC (9.6-11.6); TOTAL PROTEIN, SERUM 7.1 g/dL (6.0-8.3)
[2019-11-28 19:38] LABS: APPEARANCE,URINE CLOUDY (CLEAR); BILIRUBIN,URINE NEGATIVE (NEGATIVE); COLOR,URINE YELLOW (YELLOW); GLUCOSE, URINE (UA) NEGATIVE (NEGATIVE); KETONES,URINE 5 mg/dL (NEGATIVE); LEUKOCYTE ESTERASE ,URINE TRACE (NEGATIVE); NITRATE,URINE NEGATIVE (NEGATIVE); OCCULT BLOOD,URINE LARGE (NEGATIVE); PH,URINE 6.5 (5.0-8.0); PROTEIN,URINE TRACE mg/dL (NEGATIVE)
[2019-11-28 19:43] LABS: BACTERIA,URINE Rare /HPF (None Seen); RBC,URINE TNTC /HPF (0-1)
[2019-11-28 19:44] LABS: SQUAMOUS EPITHELIAL CELL,UR Rare /HPF (0-2)
[2019-11-28 19:46] LABS: AMPHET/METH SCREEN,URINE NEGATIVE (NEGATIVE); BARBITURATE SCREEN, URINE NEGATIVE (NEGATIVE); BENZODIAZEPINES SCREEN,URINE NEGATIVE (NEGATIVE); CANNABINOID SCREEN,URINE NEGATIVE (NEGATIVE); COCAINE SCREEN,URINE NEGATIVE (NEGATIVE); OPIATE SCREEN,URINE NEGATIVE (NEGATIVE); PHENCYCLIDINE SCREEN,URINE NEGATIVE (NEGATIVE)
[2019-11-28] MEDS ORDERED: TAMSULOSIN HCL 0.4 MG CAP.ER.24H ONE (20:37)
[2019-11-28] MEDS ORDERED: ONDANSETRON HCL 4 MG/2 ML VIAL ONE (20:37)
[2019-11-28] MEDS ORDERED: KETOROLAC TROMETHAMINE 15MG/ML ONE (20:38)
[2019-11-28] MEDS ORDERED: TRAMADOL HCL 50 MG TABLET ONE (20:43)
== END 2019-11-28 21:40 | disposition home or self-care (01) ==
LOC: EDH 18:34
DX: N20.1 Calculus of ureter (principal); R18.8 Other ascites; K74.69 Other cirrhosis of liver; I10 Essential (primary) hypertension
CPT/HCPCS: 36415; 71045; 74176; 80053; 80305; 81001; 82150; 82550; 83690; 84484; 85025; 85610; 85730; 93005; 96374; 96375; 99285; C9113; J1885; J2405

== ENCOUNTER 2020-01-06 01:58 | Emergency (ER) | payer OTHER ==
[2020-01-06] MEDS ORDERED: ONDANSETRON HCL 4 MG/2 ML VIAL ONE (02:18)
[2020-01-06] MEDS ORDERED: MORPHINE SULFATE 4 MG/1ML SYG ONE (02:19)
[2020-01-06] MEDS ORDERED: FAMOTIDINE/PF 20 MG/2 ML VIAL IV ONE (02:19)
[2020-01-06 02:33] LABS: BASOPHILS % (AUTO) 0.9 % (0.0-5.0); HEMATOCRIT 34.2 % (42-54); LYMPHOCYTES % (AUTO) 22.4 % (21.0-51.0); MEAN CORPUSCULAR HEMOGLOBIN 32.6 pg (27.0-33.0); MEAN CORPUSCULAR HGB CONC 34.5 g/dL (32.0-36.0); MEAN CORPUSCULAR VOLUME 94.5 fL (79-99); MONOCYTES % (AUTO) 9.7 % (3.0-13.0); NEUTROPHILS % (AUTO) 61.8 % (40.0-77.0); PLATELET COUNT (AUTO) 113 K/uL (130-400); RED BLOOD CELL COUNT(AUTO) 3.62 MIL/uL (4.50-6.20); RED CELL DISTRIBUTION WIDTH 14.1 % (11.0-15.5); WHITE BLOOD COUNT (AUTO) 4.4 K/uL (4.8-10.8)
[2020-01-06 02:43] LABS: CREATININE 0.8 mg/dL (0.5-1.5); POTASSIUM 3.6 mmol/L (3.5-5.1)
[2020-01-06 02:54] LABS: ALBUMIN 2.6 g/dL (3.5-5.0); BILIRUBIN,TOTAL 2.7 mg/dL (0.2-1.0); TOTAL PROTEIN, SERUM 7.6 g/dL (6.0-8.3)
[2020-01-06 03:08] LABS: AMPHET/METH SCREEN,URINE NEGATIVE (NEGATIVE); BARBITURATE SCREEN, URINE NEGATIVE (NEGATIVE); BENZODIAZEPINES SCREEN,URINE NEGATIVE (NEGATIVE); CANNABINOID SCREEN,URINE NEGATIVE (NEGATIVE); COCAINE SCREEN,URINE NEGATIVE (NEGATIVE); OPIATE SCREEN,URINE NEGATIVE (NEGATIVE); PHENCYCLIDINE SCREEN,URINE NEGATIVE (NEGATIVE)
== END 2020-01-06 04:48 | disposition home or self-care (01) ==
LOC: EDH 01:58
DX: K70.31 Alcoholic cirrhosis of liver with ascites (principal); I10 Essential (primary) hypertension
CPT/HCPCS: 36415; 74176; 80053; 80305; 82140; 83605; 83690; 84484; 85025; 93005; 96372; 96374; 96375; 99285; J2270; J2405; J3490

== ENCOUNTER → 2020-01-09 | Outpatient (CLI) | payer OTHER ==
[~2020-01-09] MED LIST changes: +ALBUMIN (HUMAN) 25% 100 ML IV SCH
[2020-01-09 10:45] LABS: INR 1.29 (0.85-1.15); PARTIAL THROMBOPLASTIN TIME 31.8 SEC (26.3-35.5); PROTHROMBIN TIME 13.8 SEC (9.6-11.6)
--- NOTE | 2020-01-09 11:30 | NUR ---
U/S GD PARACENTESIS PROCEDURE PERFORMED BY DR Leia SCHMITZ. PUNCTURE SITE LUQ AND PATIENT TOLERATED PROCEDURE WELL. TOTAL REMOVED 6.5 LITERS OF KRISTEN COLORED FLUID. ALBUMIN 25% 50 GRAMS IV GIVEN DURING PROCEDURE. SPECIMEN SENT TO LAB. END OF PROCEDURE AT 1100. CATHETER REMOVED AND DRESSING APPLIED. NO BLEEDING NOTED. DISCHARGE INSTRUCTIONS GIVEN TO PATIENT AND VERBALIZED UNDERSTANDING. DISCHARGED VIA AMBULATION AT 1130. AAO X3 WITH NO C/O PAIN.
[2020-01-09 16:57] LABS: SPECIMENTYPE,BODY FLUID ASCITES
[2020-01-09 16:58] LABS: APPEARANCE BODY FLUID SLIGHTLY CLOUDY (CLEAR); COLOR,BODY FLUID YELLOW (LT YELLOW); TOTAL VOLUME,BODY FLUID 7500 mL
[2020-01-09 17:11] LABS: BODY FLUID WBC 101 /cu. mm.
[2020-01-09 17:12] LABS: BODY FLUID RBC 983 /cu. mm.
[2020-01-09 17:48] LABS: BF LYMPHOCYTE 51 %; BF MONOCYTE 4 %; BF OTHER CELLS 4
== END | disposition home or self-care (01) ==
LOC: RAH 09:39
PROVIDERS: ATTEND Family Medicine
DX: K70.31 Alcoholic cirrhosis of liver with ascites (principal); Z79.01 Long term (current) use of anticoagulants
CPT/HCPCS: 36415; 49083; 85610; 85730; 87071; 87205; 89051; A4215; P9046

== ENCOUNTER 2020-02-08 20:49 | Inpatient (IN) | payer OTHER ==
[~2020-02-08] VITALS: Ht 175.3 cm; Wt 119.4 kg
[~2020-02-08 20:49] MED LIST changes: -ALBUMIN (HUMAN) 25% 100 ML IV SCH
[2020-02-08] MEDS ORDERED: ONDANSETRON 4MG INJ ONE (21:17)
[2020-02-08] MEDS ORDERED: MORPHINE 4 MG SYG ONE (21:18)
[2020-02-08 21:59] LABS: BASOPHILS % (AUTO) 0.9 % (0.0-5.0); EOSINOPHILS % (AUTO) 2.1 % (0.0-8.0); HEMATOCRIT 29.6 % (42-54); LYMPHOCYTES % (AUTO) 14.6 % (21.0-51.0); MEAN CORPUSCULAR HEMOGLOBIN 32.9 pg (27.0-33.0); MEAN CORPUSCULAR HGB CONC 34.5 g/dL (32.0-36.0); MEAN CORPUSCULAR VOLUME 95.5 fL (79-99); MONOCYTES % (AUTO) 8.8 % (3.0-13.0); NEUTROPHILS % (AUTO) 73.3 % (40.0-77.0); PLATELET COUNT (AUTO) 112 K/uL (130-400); RED CELL DISTRIBUTION WIDTH 13.9 % (11.0-15.5); WHITE BLOOD COUNT (AUTO) 5.8 K/uL (4.8-10.8)
[2020-02-08 22:12] LABS: CREATININE 0.6 mg/dL (0.5-1.5); POTASSIUM 4.5 mmol/L (3.5-5.1)
[2020-02-08 22:16] LABS: ALBUMIN 2.6 g/dL (3.5-5.0); BILIRUBIN,TOTAL 2.3 mg/dL (0.2-1.0); TOTAL PROTEIN, SERUM 6.9 g/dL (6.0-8.3)
[2020-02-08] MEDS ORDERED: HYDROMORPHONE 1 MG INJ ONE (23:06)
[2020-02-09 02:26] LABS: APPEARANCE,URINE Clear (CLEAR); BILIRUBIN,URINE Small (NEGATIVE); COLOR,URINE Dark Yellow (YELLOW); GLUCOSE, URINE (UA) Negative (NEGATIVE); KETONES,URINE Trace mg/dL (NEGATIVE); LEUKOCYTE ESTERASE ,URINE Trace (NEGATIVE); NITRATE,URINE Negative (NEGATIVE); OCCULT BLOOD,URINE Negative (NEGATIVE); PROTEIN,URINE Trace mg/dL (NEGATIVE)
[2020-02-09 02:32] LABS: AMPHET/METH SCREEN,URINE NEGATIVE (NEGATIVE); BARBITURATE SCREEN, URINE NEGATIVE (NEGATIVE); BENZODIAZEPINES SCREEN,URINE NEGATIVE (NEGATIVE); CANNABINOID SCREEN,URINE NEGATIVE (NEGATIVE); COCAINE SCREEN,URINE NEGATIVE (NEGATIVE); OPIATE SCREEN,URINE POSITIVE (NEGATIVE); PHENCYCLIDINE SCREEN,URINE NEGATIVE (NEGATIVE)
[2020-02-09 02:35] LABS: BACTERIA,URINE Few /HPF (None Seen); MUCUS,URINE Few LPF (None Seen)
[2020-02-09] MEDS ORDERED: ACETAMINOPHEN 325 MG TAB PO PRN ×2 (05:45)
[2020-02-09] MEDS ORDERED: ONDANSETRON ODT 4MG TAB PO PRN (05:45)
[2020-02-09] MEDS: CEFTRIAXONE 1G VIAL IVP SCH (06:00)
[2020-02-09 06:31] LABS: BASOPHILS % (AUTO) 0.7 % (0.0-5.0); EOSINOPHILS % (AUTO) 3.4 % (0.0-8.0); HEMATOCRIT 28.4 % (42-54); LYMPHOCYTES % (AUTO) 18.6 % (21.0-51.0); MEAN CORPUSCULAR HEMOGLOBIN 32.5 pg (27.0-33.0); MEAN CORPUSCULAR HGB CONC 33.8 g/dL (32.0-36.0); MEAN CORPUSCULAR VOLUME 96.3 fL (79-99); MONOCYTES % (AUTO) 8.6 % (3.0-13.0); NEUTROPHILS % (AUTO) 68.5 % (40.0-77.0); PLATELET COUNT (AUTO) 95 K/uL (130-400); RED BLOOD CELL COUNT(AUTO) 2.95 MIL/uL (4.50-6.20); RED CELL DISTRIBUTION WIDTH 13.9 % (11.0-15.5); WHITE BLOOD COUNT (AUTO) 4.4 K/uL (4.8-10.8)
[2020-02-09 06:42] LABS: INR 1.46 (0.85-1.15); PROTHROMBIN TIME 15.1 SEC (9.6-11.6)
[2020-02-09 06:44] LABS: PARTIAL THROMBOPLASTIN TIME 35.6 SEC (26.3-35.5)
[2020-02-09 07:34] LABS: MAGNESIUM 1.8 mg/dL (1.80-2.40)
[2020-02-09] MEDS ORDERED: CEFTRIAXONE 1G VIAL ONE (07:35)
[2020-02-09] MEDS: FUROSEMIDE 40MG VIAL IV SCH (12:45)
[2020-02-09 15:04] LABS: HEMATOCRIT 30.1 % (42-54)
[2020-02-09] MEDS ORDERED: FUROSEMIDE 40MG VIAL ONE (15:05)
[2020-02-09] MEDS: LACTULOSE 20 GM/30 ML UDCUP PO SCH ×2 (15:56→21:22)
[2020-02-09 17:22] VITALS: BP 137/71
[2020-02-09 18:34] LABS: HEMATOCRIT 30.3 % (42-54)
[2020-02-09 19:40] VITALS: BP 121/82
[2020-02-09] MEDS: RIFAXIMIN 550 MG TABLET PO SCH (21:19)
[2020-02-09] MEDS: HYDROMORPHONE 1 MG INJ IVP PRN (21:21)
[2020-02-09 23:23] VITALS: BP 153/91
[2020-02-10] MEDS: FUROSEMIDE 40MG VIAL IV SCH ×2 (01:27→12:22)
[2020-02-10] MEDS: PANTOPRAZOLE 40 MG TAB DR PO SCH ×3 (01:39→22:23)
[2020-02-10 04:04] VITALS: BP 135/73
[2020-02-10] MEDS: CEFTRIAXONE 1G VIAL IVP SCH (06:21)
[2020-02-10] MEDS: LACTULOSE 20 GM/30 ML UDCUP PO SCH ×3 (06:21→22:22)
[2020-02-10 06:31] LABS: HEMATOCRIT 27.7 % (42-54); MEAN CORPUSCULAR HEMOGLOBIN 32.4 pg (27.0-33.0); MEAN CORPUSCULAR HGB CONC 33.2 g/dL (32.0-36.0); MEAN CORPUSCULAR VOLUME 97.5 fL (79-99); RED BLOOD CELL COUNT(AUTO) 2.84 MIL/uL (4.50-6.20); RED CELL DISTRIBUTION WIDTH 14.2 % (11.0-15.5); WHITE BLOOD COUNT (AUTO) 3.7 K/uL (4.8-10.8)
[2020-02-10 06:46] LABS: CREATININE 0.8 mg/dL (0.5-1.5); POTASSIUM 3.6 mmol/L (3.5-5.1)
[2020-02-10 06:51] LABS: INR 1.46 (0.85-1.15); PROTHROMBIN TIME 15.1 SEC (9.6-11.6)
[2020-02-10 06:52] LABS: PARTIAL THROMBOPLASTIN TIME 36.4 SEC (26.3-35.5)
[2020-02-10 08:21] VITALS: BP 124/67
[2020-02-10] MEDS: RIFAXIMIN 550 MG TABLET PO SCH ×2 (08:59→22:22)
[2020-02-10] MEDS ORDERED: PANTOPRAZOLE 40 MG TAB DR PO SCH (09:00)
[2020-02-10] MEDS: SPIRONOLACTONE 25 MG TAB PO SCH (09:00)
[2020-02-10] MEDS: MAGNESIUM 2GM PREMIX 50ML 50 ML IV SCH (12:23)
[2020-02-10 12:31] LABS: HEMATOCRIT 30.7 % (42-54)
[2020-02-10 12:53] VITALS: BP 117/68
[2020-02-10 16:51] VITALS: BP 111/64
[2020-02-10 20:42] VITALS: BP 99/57
[2020-02-10 23:29] VITALS: BP 131/70
[2020-02-11] VITALS (20 sets, daily range): BP systolic 96–133; BP diastolic 51–82
[2020-02-11] MEDS: FUROSEMIDE 40MG VIAL IV SCH ×2 (01:37→12:57)
[2020-02-11] MEDS: CEFTRIAXONE 1G VIAL IVP SCH (06:33)
[2020-02-11] MEDS: LACTULOSE 20 GM/30 ML UDCUP PO SCH ×3 (06:33→20:22)
[2020-02-11 06:40] LABS: BASOPHILS % (AUTO) 0.6 % (0.0-5.0); EOSINOPHILS % (AUTO) 5.4 % (0.0-8.0); HEMATOCRIT 27.8 % (42-54); LYMPHOCYTES % (AUTO) 26.8 % (21.0-51.0); MEAN CORPUSCULAR HEMOGLOBIN 32.5 pg (27.0-33.0); MEAN CORPUSCULAR HGB CONC 34.2 g/dL (32.0-36.0); MEAN CORPUSCULAR VOLUME 95.2 fL (79-99); MONOCYTES % (AUTO) 11.5 % (3.0-13.0); NEUTROPHILS % (AUTO) 55.4 % (40.0-77.0); PLATELET COUNT (AUTO) 101 K/uL (130-400); RED BLOOD CELL COUNT(AUTO) 2.92 MIL/uL (4.50-6.20); RED CELL DISTRIBUTION WIDTH 13.5 % (11.0-15.5); WHITE BLOOD COUNT (AUTO) 3.1 K/uL (4.8-10.8)
[2020-02-11 06:53] LABS: INR 1.49 (0.85-1.15); PROTHROMBIN TIME 15.4 SEC (9.6-11.6)
[2020-02-11 06:54] LABS: CREATININE 0.9 mg/dL (0.5-1.5); MAGNESIUM 1.8 mg/dL (1.80-2.40); POTASSIUM 3.3 mmol/L (3.5-5.1)
[2020-02-11] MEDS: THIAMINE HCL 100 MG TABLET PO SCH (09:36)
[2020-02-11] MEDS: PANTOPRAZOLE 40 MG TAB DR PO SCH ×2 (09:36→20:22)
[2020-02-11] MEDS: RIFAXIMIN 550 MG TABLET PO SCH ×2 (09:36→20:22)
[2020-02-11] MEDS: SPIRONOLACTONE 25 MG TAB PO SCH (09:36)
[2020-02-11] MEDS: FOLIC ACID 1 MG TABLET PO SCH (09:36)
[2020-02-11] MEDS ORDERED: MIDAZOLAM HCL 1 MG/ML 2ML VIAL ONE (10:39)
[2020-02-11] MEDS ORDERED: PROPOFOL 10 MG/ML 20ML VIAL IV ONE (10:39)
[2020-02-11] MEDS ORDERED: LIDOCAINE HCL 1% 20 ML VIAL ONE (10:39)
[2020-02-11] MEDS ORDERED: LIDOCAINE HCL-MPF 1% 2ML VIAL IV PRN (14:15)
[2020-02-11] MEDS ORDERED: LACTULOSE 20 GM/30 ML UDCUP PO PRN (14:15)
[2020-02-11] MEDS ORDERED: POTASSIUM CHLORIDE 10MEQ/100ML 100 ML IV PRN (14:15)
[2020-02-11] MEDS ORDERED: KCL 20 MEQ ERTAB PO PRN (14:15)
[2020-02-11] MEDS ORDERED: MAGNESIUM 2GM PREMIX 50ML 50 ML IV PRN (14:15)
[2020-02-11] MEDS ORDERED: COMPOUND IV REFRIGERATED 1 EACH IVSOLN MISC PRN (16:30)
[2020-02-11] MEDS ORDERED: PANTOPRAZOLE 40MG INJ 80 MG in 0.9%NACL 100ML 100 ML IVP SCH (17:00)
[2020-02-11] MEDS ORDERED: MAGNESIUM CITRATE 296 ML SOLUTION PO ONE (17:10)
[2020-02-11] MEDS ORDERED: PEG 3350/NA SULF,BICARB,CL/KCL 4000 ML SOLN PO ONE (17:15)
[2020-02-11] MEDS: HYDROMORPHONE 1 MG INJ IVP PRN (18:57)
[2020-02-11] MEDS: POTASSIUM CHLORIDE 10% ELIXIR 20 MEQ/15 ML UDCUP PO PRN ×2 (19:00→20:23)
[2020-02-12] VITALS (20 sets, daily range): BP systolic 90–142; BP diastolic 50–88
[2020-02-12] MEDS: FUROSEMIDE 40MG VIAL IV SCH ×2 (00:24→14:00)
[2020-02-12] MEDS: POTASSIUM CHLORIDE 10% ELIXIR 20 MEQ/15 ML UDCUP PO PRN (00:26)
[2020-02-12] MEDS: MAGNESIUM 2GM PREMIX 50ML 50 ML IV SCH (01:56)
[2020-02-12] MEDS: CEFTRIAXONE 1G VIAL IVP SCH (04:24)
[2020-02-12] MEDS: LACTULOSE 20 GM/30 ML UDCUP PO SCH ×2 (04:24→14:00)
[2020-02-12 05:55] LABS: BASOPHILS % (AUTO) 0.7 % (0.0-5.0); LYMPHOCYTES % (AUTO) 19.8 % (21.0-51.0); MEAN CORPUSCULAR HEMOGLOBIN 32.7 pg (27.0-33.0); MEAN CORPUSCULAR HGB CONC 34.1 g/dL (32.0-36.0); MEAN CORPUSCULAR VOLUME 95.7 fL (79-99); MONOCYTES % (AUTO) 7.9 % (3.0-13.0); NEUTROPHILS % (AUTO) 67.4 % (40.0-77.0); PLATELET COUNT (AUTO) 108 K/uL (130-400); RED BLOOD CELL COUNT(AUTO) 3.03 MIL/uL (4.50-6.20); RED CELL DISTRIBUTION WIDTH 13.7 % (11.0-15.5); WHITE BLOOD COUNT (AUTO) 4.1 K/uL (4.8-10.8)
[2020-02-12 06:08] LABS: ALBUMIN 2.3 g/dL (3.5-5.0); BILIRUBIN,TOTAL 1.6 mg/dL (0.2-1.0); CREATININE 0.8 mg/dL (0.5-1.5); MAGNESIUM 2.2 mg/dL (1.80-2.40); POTASSIUM 3.7 mmol/L (3.5-5.1); TOTAL PROTEIN, SERUM 6.6 g/dL (6.0-8.3)
[2020-02-12 06:23] LABS: INR 1.46 (0.85-1.15); PROTHROMBIN TIME 15.1 SEC (9.6-11.6)
[2020-02-12 06:24] LABS: PARTIAL THROMBOPLASTIN TIME 36.1 SEC (26.3-35.5)
[2020-02-12 06:47] LABS: B-TYPE NATRIURETIC PEPTIDE 21 pg/mL (0-100)
[2020-02-12] MEDS ORDERED: ALBUMIN (HUMAN) 25% 200 ML IV SCH (12:45)
[2020-02-12] MEDS: SPIRONOLACTONE 25 MG TAB PO SCH (12:57)
[2020-02-12] MEDS: FOLIC ACID 1 MG TABLET PO SCH (12:58)
[2020-02-12] MEDS: THIAMINE HCL 100 MG TABLET PO SCH (12:58)
[2020-02-12] MEDS: RIFAXIMIN 550 MG TABLET PO SCH (12:58)
[2020-02-12] MEDS: PANTOPRAZOLE 40 MG TAB DR PO SCH (12:58)
[2020-02-12] MEDS ORDERED: MAGNESIUM CITRATE 296 ML SOLUTION PO SCH (13:30)
[2020-02-12 14:14] LABS: ALBUMIN,BODY FLUID 0.6 g/dL
[2020-02-12 14:35] LABS: APPEARANCE BODY FLUID CLEAR (CLEAR); SPECIMENTYPE,BODY FLUID ASCITES
[2020-02-12 14:36] LABS: BODY FLUID WBC 149 /cu. mm.; COLOR,BODY FLUID YELLOW (LT YELLOW); TOTAL VOLUME,BODY FLUID 8800 mL
[2020-02-12 14:37] LABS: BODY FLUID RBC 682 /cu. mm.
[2020-02-12 16:08] LABS: BF LYMPHOCYTE 45 %; BF MESOTHELIAL 7 %; BF OTHER CELLS 1
[2020-02-12] MEDS ORDERED: PROPOFOL 10 MG/ML 20ML VIAL IV ONE (18:13)
[2020-02-12] MEDS ORDERED: LIDOCAINE HCL 1% 20 ML VIAL ONE (18:13)
== END 2020-02-12 20:18 | disposition home or self-care (01) | DRG 432 ==
LOC: EDH 20:49 → EDHIP 02-09 00:20 → OBSVTOIN 02-09 00:20 → 3BH 02-09 15:08
PROVIDERS: ADMIT Internal Medicine; ATTEND Internal Medicine
PROC: 06L38CZ Occlusion of Esophageal Vein with Extraluminal Device, Via Natural or Artificial Opening Endoscopic (ICD-10-PCS; 2020-02-11)
PROC: 0W9G3ZZ Drainage of Peritoneal Cavity, Percutaneous Approach (ICD-10-PCS; principal; 2020-02-12)
PROC: 0DJD8ZZ Inspection of Lower Intestinal Tract, Via Natural or Artificial Opening Endoscopic (ICD-10-PCS; 2020-02-12)
DX: K74.69 Other cirrhosis of liver (principal); K65.2 Spontaneous bacterial peritonitis; R18.8 Other ascites; D61.818 Other pancytopenia; K76.6 Portal hypertension; D62 Acute posthemorrhagic anemia; I85.00 Esophageal varices without bleeding; K76.0 Fatty (change of) liver, not elsewhere classified; E66.01 Morbid (severe) obesity due to excess calories; K59.00 Constipation, unspecified; I10 Essential (primary) hypertension; K29.00 Acute gastritis without bleeding; K31.89 Other diseases of stomach and duodenum; K64.1 Second degree hemorrhoids; K21.00 Gastro-esophageal reflux disease with esophagitis, without bleeding; T18.4XXA Foreign body in colon, initial encounter; X58.XXXA Exposure to other specified factors, initial encounter; R16.1 Splenomegaly, not elsewhere classified; Z68.38 Body mass index [BMI] 38.0-38.9, adult; Z90.49 Acquired absence of other specified parts of digestive tract; Y93.89 Activity, other specified; Y92.89 Other specified places as the place of occurrence of the external cause; Y99.8 Other external cause status; Z20.822 Contact with and (suspected) exposure to COVID-19
CPT/HCPCS: 36415; 43244; 45378; 49083; 74176; 80048; 80053; 80305; 81001; 82040; 82042; 82105; 82140; 82270; 83690; 83735; 83880; 84157; 84484; 85014; 85018; 85025; 85027; 85610; 85730; 87071; 87088; 87205; 87426; 89051; A4606; C1729; C9113; G0378; J0696; J1170; J1940; J2250; J2270; J2405; J2704; J3475; J7030; P9046; U0003

== ENCOUNTER → 2020-03-17 | Outpatient (CLI) | payer OTHER ==
[~2020-03-17] MED LIST changes: -ACET600C3 PO; +ALBUMIN (HUMAN) 25% 200 ML IV SCH; -ALPH600C3 PO; -CYAN10007 IJ; -ERGO1POW10; -FURO20TA6 PO; -LEVO500T2 PO; -MILK500C PO
[2020-03-17 08:55] LABS: INR 1.36 (0.85-1.15); PROTHROMBIN TIME 14.4 SEC (9.6-11.6)
[2020-03-17 08:56] LABS: PARTIAL THROMBOPLASTIN TIME 34.7 SEC (26.3-35.5)
[2020-03-17 14:00] LABS: APPEARANCE BODY FLUID CLOUDY (CLEAR); COLOR,BODY FLUID YELLOW (LT YELLOW); SPECIMENTYPE,BODY FLUID ASCITES; TOTAL VOLUME,BODY FLUID 5000 mL
[2020-03-17 14:01] LABS: BODY FLUID RBC 1150 /cu. mm.; BODY FLUID WBC 216 /cu. mm.
[2020-03-17 14:12] LABS: BF LYMPHOCYTE 46 %; BF MESOTHELIAL 4 %; BF MONOCYTE 11 %
== END ==
LOC: RAH 07:35
PROVIDERS: ATTEND Family Medicine
DX: R18.8 Other ascites (principal); K74.69 Other cirrhosis of liver; I10 Essential (primary) hypertension; E11.40 Type 2 diabetes mellitus with diabetic neuropathy, unspecified; F31.9 Bipolar disorder, unspecified; K43.9 Ventral hernia without obstruction or gangrene; F41.1 Generalized anxiety disorder; F17.200 Nicotine dependence, unspecified, uncomplicated; F43.10 Post-traumatic stress disorder, unspecified; E78.5 Hyperlipidemia, unspecified; Z79.4 Long term (current) use of insulin; Z79.01 Long term (current) use of anticoagulants
CPT/HCPCS: 36415; 49083; 85610; 85730; 87071; 87205; 89051; A4215; P9046; 96365

== ENCOUNTER 2020-04-20 14:05 | Emergency (ER) | payer OTHER ==
[~2020-04-20 14:05] MED LIST changes: -ALBUMIN (HUMAN) 25% 200 ML IV SCH
[2020-04-20 14:37] LABS: BASOPHILS % (AUTO) 0.8 % (0.0-5.0); EOSINOPHILS % (AUTO) 3.6 % (0.0-8.0); HEMATOCRIT 31.9 % (42-54); LYMPHOCYTES % (AUTO) 24.5 % (21.0-51.0); MEAN CORPUSCULAR HEMOGLOBIN 31.5 pg (27.0-33.0); MEAN CORPUSCULAR HGB CONC 33.9 g/dL (32.0-36.0); MONOCYTES % (AUTO) 9.3 % (3.0-13.0); NEUTROPHILS % (AUTO) 61.5 % (40.0-77.0); PLATELET COUNT (AUTO) 81 K/uL (130-400); RED BLOOD CELL COUNT(AUTO) 3.43 MIL/uL (4.50-6.20); RED CELL DISTRIBUTION WIDTH 14.6 % (11.0-15.5); WHITE BLOOD COUNT (AUTO) 3.9 K/uL (4.8-10.8)
[2020-04-20 14:51] LABS: CREATININE 0.8 mg/dL (0.5-1.5); POTASSIUM 4.2 mmol/L (3.5-5.1)
[2020-04-20 14:55] LABS: ALBUMIN 2.7 g/dL (3.5-5.0); BILIRUBIN,TOTAL 1.4 mg/dL (0.2-1.0); TOTAL PROTEIN, SERUM 7.5 g/dL (6.0-8.3)
[2020-04-20] MEDS ORDERED: MECLIZINE HCL 25 MG TABLET ONE (15:11)
== END 2020-04-20 17:45 | disposition home or self-care (01) ==
LOC: EDH 14:05
DX: R42 Dizziness and giddiness (principal); R53.1 Weakness; Z20.822 Contact with and (suspected) exposure to COVID-19; I10 Essential (primary) hypertension
CPT/HCPCS: 36415; 70450; 71045; 80053; 84484; 85025; 87426; 93005; 99285; U0003

== ENCOUNTER 2020-04-22 09:49 | Emergency (ER) | payer OTHER ==
[2020-04-22 10:26] LABS: BASOPHILS % (AUTO) 1.2 % (0.0-5.0); EOSINOPHILS % (AUTO) 2.4 % (0.0-8.0); HEMATOCRIT 31.9 % (42-54); LYMPHOCYTES % (AUTO) 20.4 % (21.0-51.0); MEAN CORPUSCULAR HEMOGLOBIN 31.9 pg (27.0-33.0); MEAN CORPUSCULAR HGB CONC 34.8 g/dL (32.0-36.0); MEAN CORPUSCULAR VOLUME 91.7 fL (79-99); MONOCYTES % (AUTO) 9.1 % (3.0-13.0); NEUTROPHILS % (AUTO) 66.6 % (40.0-77.0); PLATELET COUNT (AUTO) 86 K/uL (130-400); RED BLOOD CELL COUNT(AUTO) 3.48 MIL/uL (4.50-6.20); RED CELL DISTRIBUTION WIDTH 14.7 % (11.0-15.5); WHITE BLOOD COUNT (AUTO) 3.3 K/uL (4.8-10.8)
[2020-04-22 10:35] LABS: POTASSIUM 4.2 mmol/L (3.5-5.1)
[2020-04-22 10:36] LABS: BILIRUBIN,TOTAL 1.6 mg/dL (0.2-1.0); CREATININE 0.8 mg/dL (0.5-1.5); TOTAL PROTEIN, SERUM 7.8 g/dL (6.0-8.3)
[2020-04-22 10:37] LABS: ALBUMIN 2.8 g/dL (3.5-5.0)
[2020-04-22 11:04] LABS: APPEARANCE,URINE Clear (CLEAR); BILIRUBIN,URINE Negative (NEGATIVE); COLOR,URINE Yellow (YELLOW); GLUCOSE, URINE (UA) Negative (NEGATIVE); KETONES,URINE Negative (NEGATIVE); LEUKOCYTE ESTERASE ,URINE Trace (NEGATIVE); NITRATE,URINE Negative (NEGATIVE); OCCULT BLOOD,URINE Negative (NEGATIVE); PROTEIN,URINE Negative (NEGATIVE)
[2020-04-22 11:12] LABS: AMPHET/METH SCREEN,URINE NEGATIVE (NEGATIVE); BARBITURATE SCREEN, URINE NEGATIVE (NEGATIVE); BENZODIAZEPINES SCREEN,URINE NEGATIVE (NEGATIVE); CANNABINOID SCREEN,URINE NEGATIVE (NEGATIVE); COCAINE SCREEN,URINE NEGATIVE (NEGATIVE); OPIATE SCREEN,URINE NEGATIVE (NEGATIVE); PHENCYCLIDINE SCREEN,URINE NEGATIVE (NEGATIVE)
[2020-04-22 11:16] LABS: BACTERIA,URINE None Seen /HPF (None Seen); RBC,URINE 0-1 /HPF (0-1); SQUAMOUS EPITHELIAL CELL,UR 0-2 /HPF (0-2)
[2020-04-22] MEDS ORDERED: LACTULOSE 20 GM/30 ML UDCUP ONE ×2 (11:38→11:39)
[2020-04-22] MEDS ORDERED: ONDANSETRON 4MG INJ ONE (12:15)
== END 2020-04-22 13:42 | disposition home or self-care (01) ==
LOC: EDH 09:49
DX: K74.60 Unspecified cirrhosis of liver (principal); E72.20 Disorder of urea cycle metabolism, unspecified; I10 Essential (primary) hypertension; Z90.49 Acquired absence of other specified parts of digestive tract; Z87.442 Personal history of urinary calculi
CPT/HCPCS: 36415; 80053; 80305; 81001; 82140; 82550; 83605; 83880; 84145; 84484; 85025; 86850; 86900; 86901; 93005; 96374; 99284; J2405

== ENCOUNTER 2020-06-02 01:19 | Observation (INO) | payer OTHER ==
[~2020-06-02] VITALS: Ht 175.3 cm; Wt 109.7 kg
[2020-06-02 01:52] LABS: BASOPHILS % (AUTO) 0.9 % (0.0-5.0); EOSINOPHILS % (AUTO) 3.1 % (0.0-8.0); HEMATOCRIT 33.4 % (42-54); LYMPHOCYTES % (AUTO) 27.5 % (21.0-51.0); MEAN CORPUSCULAR HEMOGLOBIN 32.3 pg (27.0-33.0); MEAN CORPUSCULAR HGB CONC 35.6 g/dL (32.0-36.0); MEAN CORPUSCULAR VOLUME 90.8 fL (79-99); MONOCYTES % (AUTO) 10.4 % (3.0-13.0); NEUTROPHILS % (AUTO) 57.9 % (40.0-77.0); PLATELET COUNT (AUTO) 80 K/uL (130-400); RED BLOOD CELL COUNT(AUTO) 3.68 MIL/uL (4.50-6.20); RED CELL DISTRIBUTION WIDTH 14.7 % (11.0-15.5); WHITE BLOOD COUNT (AUTO) 4.2 K/uL (4.8-10.8)
[2020-06-02 02:00] LABS: CREATININE 0.9 mg/dL (0.5-1.5); POTASSIUM 3.8 mmol/L (3.5-5.1)
[2020-06-02 02:05] LABS: ALBUMIN 2.7 g/dL (3.5-5.0); BILIRUBIN,TOTAL 1.2 mg/dL (0.2-1.0); TOTAL PROTEIN, SERUM 7.5 g/dL (6.0-8.3)
[2020-06-02] MEDS ORDERED: METOCLOPRAMIDE 10 MG/2 ML VIAL ONE (02:09)
[2020-06-02] MEDS ORDERED: ONDANSETRON HCL 4 MG/2 ML VIAL ONE (02:09)
[2020-06-02] MEDS ORDERED: SODIUM CHLORIDE 0.9% 1000ML 2,000 ML IV ONE (02:09)
[2020-06-02 02:29] LABS: INR 1.21 (0.85-1.15)
[2020-06-02 02:30] LABS: PARTIAL THROMBOPLASTIN TIME 31.4 SEC (26.3-35.5)
[2020-06-02] MEDS ORDERED: LACTULOSE 20 GM/30 ML UDCUP ONE ×2 (02:59→14:53)
[2020-06-02] MEDS ORDERED: GUAIFENESIN-DM 200/20 MG 10 ML PO PRN (03:15)
[2020-06-02] MEDS ORDERED: ONDANSETRON HCL 4 MG/2 ML VIAL IV PRN (03:15)
[2020-06-02] MEDS ORDERED: NITROGLYCERIN 0.4 MG SL TAB SL PRN (03:15)
[2020-06-02] MEDS: SODIUM CHLORIDE 0.9% 1000ML 1,000 ML IV SCH ×3 (03:15→20:59)
[2020-06-02] MEDS ORDERED: ACETAMINOPHEN 325 MG TAB PO PRN (03:15)
[2020-06-02] MEDS ORDERED: HYDROMORPHONE 1 MG/1 ML AMP IV PRN (03:15)
[2020-06-02 03:31] LABS: APPEARANCE,URINE Clear (CLEAR); BILIRUBIN,URINE Negative (NEGATIVE); COLOR,URINE Dark Yellow (YELLOW); GLUCOSE, URINE (UA) Negative (NEGATIVE); KETONES,URINE Trace mg/dL (NEGATIVE); LEUKOCYTE ESTERASE ,URINE Moderate (NEGATIVE); NITRATE,URINE Negative (NEGATIVE); OCCULT BLOOD,URINE Negative (NEGATIVE); PROTEIN,URINE Negative (NEGATIVE)
[2020-06-02 03:44] LABS: BACTERIA,URINE Few /HPF (None Seen); MUCUS,URINE Few LPF (None Seen); RBC,URINE 0-1 /HPF (0-1); SQUAMOUS EPITHELIAL CELL,UR 0-2 /HPF (0-2)
[2020-06-02] MEDS ORDERED: SODIUM CHLORIDE 0.9% 1000ML 1,000 ML IV ONE (04:05)
[2020-06-02 04:20] VITALS: BP 127/84
[2020-06-02] MEDS ORDERED: LACTULOSE 20 GM/30 ML UDCUP PO SCH (06:15)
[2020-06-02] MEDS ORDERED: LABETALOL 20 MG/4 ML DISP.SYRIN IV PRN ×2 (06:15→06:30)
[2020-06-02] MEDS: ZOSYN 3.375GM+NS 50ML 50 ML IV SCH ×3 (06:28→20:58)
[2020-06-02] MEDS ORDERED: HYDROMORPHONE HCL 0.5 MG/0.5 ML ML IVP PRN (06:30)
[2020-06-02 08:00] VITALS: BP 114/69
[2020-06-02] MEDS ORDERED: SPIRONOLACTONE 25 MG TAB PO SCH (09:00)
[2020-06-02] MEDS ORDERED: FAMOTIDINE/PF 20 MG/2 ML VIAL IV SCH (09:00)
[2020-06-02] MEDS ORDERED: LACT10SO76 PO (09:14)
[2020-06-02 11:00] VITALS: BP 110/69
[2020-06-02] MEDS ORDERED: SPIR50TA5 PO (11:57)
[2020-06-02] MEDS ORDERED: CYAN10007 IM (11:57)
[2020-06-02] MEDS ORDERED: FURO40TA5 PO (11:57)
[2020-06-02 16:12] VITALS: BP 124/61
[2020-06-02 19:53] VITALS: BP 125/76
[2020-06-02] MEDS: LACTULOSE 20 GM/30 ML UDCUP PO SCH (20:58)
[2020-06-02] MEDS: RIFAXIMIN 550 MG TABLET PO SCH (20:58)
[2020-06-02 23:35] VITALS: BP 121/78
[2020-06-03 03:59] VITALS: BP 110/68
[2020-06-03] MEDS: ZOSYN 3.375GM+NS 50ML 50 ML IV SCH ×2 (05:32→14:03)
[2020-06-03 05:55] LABS: BASOPHILS % (AUTO) 0.7 % (0.0-5.0); EOSINOPHILS % (AUTO) 4.5 % (0.0-8.0); LYMPHOCYTES % (AUTO) 24.7 % (21.0-51.0); MEAN CORPUSCULAR HEMOGLOBIN 31.8 pg (27.0-33.0); MEAN CORPUSCULAR HGB CONC 34.5 g/dL (32.0-36.0); MONOCYTES % (AUTO) 10.5 % (3.0-13.0); NEUTROPHILS % (AUTO) 59.2 % (40.0-77.0); PLATELET COUNT (AUTO) 63 K/uL (130-400); RED BLOOD CELL COUNT(AUTO) 3.37 MIL/uL (4.50-6.20); RED CELL DISTRIBUTION WIDTH 14.7 % (11.0-15.5); WHITE BLOOD COUNT (AUTO) 2.7 K/uL (4.8-10.8)
[2020-06-03 06:15] LABS: ALBUMIN 2.4 g/dL (3.5-5.0); BILIRUBIN,TOTAL 1.7 mg/dL (0.2-1.0); CREATININE 0.9 mg/dL (0.5-1.5); MAGNESIUM 1.9 mg/dL (1.80-2.40); POTASSIUM 3.9 mmol/L (3.5-5.1); TOTAL PROTEIN, SERUM 6.4 g/dL (6.0-8.3)
[2020-06-03 06:16] LABS: B-TYPE NATRIURETIC PEPTIDE 92 pg/mL (0-100)
[2020-06-03 07:09] LABS: EOSINOPHILS % (MANUAL) 2 % (1-6); LYMPHOCYTES % (MANUAL) 16 % (22-44); MONOCYTES % (MANUAL) 4 % (2-9); SEGMENTED NEUTROPHILS % 78 % (40-70)
[2020-06-03 07:10] LABS: MAN.DIFF COMMENT-IMPRESSION MANUAL DIFFERENTIAL
[2020-06-03 07:11] LABS: PLATELET MORPHOLOGY COMMENT DECREASED
[2020-06-03 07:52] VITALS: BP 114/71
[2020-06-03] MEDS ORDERED: FAMOTIDINE 20MG TAB 20 MG TAB PO SCH (09:00)
[2020-06-03] MEDS: RIFAXIMIN 550 MG TABLET PO SCH (09:37)
[2020-06-03] MEDS: LACTULOSE 20 GM/30 ML UDCUP PO SCH ×2 (09:38→14:04)
[2020-06-03 11:12] VITALS: BP 121/81
[2020-06-03] MEDS ORDERED: CEPH500B PO (14:07)
[2020-06-03 16:29] VITALS: BP 133/92
== END 2020-06-03 18:30 | disposition home or self-care (01) ==
LOC: EDH 01:19 → EDHIP 03:01 → 3BH 03:45
PROVIDERS: ADMIT Internal Medicine Critical Care Medicine; ATTEND Internal Medicine Critical Care Medicine
DX: G93.41 Metabolic encephalopathy (principal); E86.0 Dehydration; E86.9 Volume depletion, unspecified; K74.60 Unspecified cirrhosis of liver; N39.0 Urinary tract infection, site not specified; I10 Essential (primary) hypertension; I85.00 Esophageal varices without bleeding; D64.9 Anemia, unspecified; E72.29 Other disorders of urea cycle metabolism; Z87.442 Personal history of urinary calculi; Z90.49 Acquired absence of other specified parts of digestive tract; Z79.899 Other long term (current) drug therapy
CPT/HCPCS: 36415 ×2; 71045; 76700; 80053 ×2; 81001; 82140 ×2; 83605; 83690; 83735 ×2; 83880; 84145; 84484; 85025 ×2; 85610; 85730; 87040 ×2; 87088; 93005; 96365; 96366 ×2; 96375; 99285; G0378 ×39; J2405; J2543 ×5; J2765; J3490; J7030 ×3

== ENCOUNTER → 2020-06-16 | Outpatient (CLI) | payer OTHER ==
[~2020-06-16] MED LIST changes: +CEPH500B PO; +CYAN10007 IM; +FURO40TA5 PO; -IRON1CAP32 PO; +LACT10SO76 PO; -LACT10SO9 PO; -MAGN250T10 PO; -MECL-160 PO; -PANT40TA PO; -PRAS25CA9 PO; -RIFA550T PO; -SPIR25TA PO; +SPIR50TA5 PO
== END | disposition home or self-care (01) ==
LOC: RAH 16:01
PROVIDERS: ATTEND Family Medicine
DX: N62 Hypertrophy of breast (principal); N64.4 Mastodynia
CPT/HCPCS: 77066

== ENCOUNTER 2020-07-12 05:41 | Emergency (ER) | payer OTHER ==
[~2020-07-12] VITALS: Ht 175.3 cm; Wt 110.7 kg
[2020-07-12 05:47] VITALS: BP 121/68
[2020-07-12 06:12] VITALS: BP 106/78
[2020-07-12 06:25] LABS: HEMATOCRIT 30.9 % (42-54); MEAN CORPUSCULAR HEMOGLOBIN 32.8 pg (27.0-33.0); MEAN CORPUSCULAR HGB CONC 34.6 g/dL (32.0-36.0); MEAN CORPUSCULAR VOLUME 94.8 fL (79-99); PLATELET COUNT (AUTO) 66 K/uL (130-400); RED BLOOD CELL COUNT(AUTO) 3.26 MIL/uL (4.50-6.20); RED CELL DISTRIBUTION WIDTH 14.5 % (11.0-15.5); WHITE BLOOD COUNT (AUTO) 3.7 K/uL (4.8-10.8)
[2020-07-12 06:37] LABS: INR 1.3 (0.85-1.15); PROTHROMBIN TIME 13.8 SEC (9.6-11.6)
[2020-07-12 06:39] LABS: PARTIAL THROMBOPLASTIN TIME 31.6 SEC (26.3-35.5)
[2020-07-12] MEDS ORDERED: SODIUM CHLORIDE 0.9% 1000ML 1,000 ML IV SCH ×2 (07:00→09:38)
[2020-07-12] MEDS ORDERED: ONDANSETRON HCL 4 MG/2 ML VIAL IVP SCH (07:00)
[2020-07-12 07:27] LABS: CREATININE 0.6 mg/dL (0.5-1.5); POTASSIUM 3.5 mmol/L (3.5-5.1)
[2020-07-12 07:54] LABS: ALBUMIN 2.7 g/dL (3.5-5.0); BILIRUBIN,TOTAL 1.6 mg/dL (0.2-1.0); TOTAL PROTEIN, SERUM 7.1 g/dL (6.0-8.3)
[2020-07-12] MEDS ORDERED: SODIUM CHLORIDE 0.9% 1000ML 1,000 ML IV ONE (08:32)
[2020-07-12 08:41] VITALS: BP 99/61
[2020-07-12 09:16] LABS: APPEARANCE,URINE Clear (CLEAR); BILIRUBIN,URINE Small (NEGATIVE); COLOR,URINE Dark Yellow (YELLOW); GLUCOSE, URINE (UA) Negative (NEGATIVE); KETONES,URINE Trace mg/dL (NEGATIVE); LEUKOCYTE ESTERASE ,URINE Small (NEGATIVE); NITRATE,URINE Negative (NEGATIVE); OCCULT BLOOD,URINE Nonhemolyzed Trace (NEGATIVE); PH,URINE 6.5 (5.0-8.0); PROTEIN,URINE Trace mg/dL (NEGATIVE)
[2020-07-12] MEDS ORDERED: CEPH500B PO (09:23)
[2020-07-12 09:27] LABS: BACTERIA,URINE Few /HPF (None Seen); RBC,URINE 0-1 /HPF (0-1); SQUAMOUS EPITHELIAL CELL,UR 0-2 /HPF (0-2)
[2020-07-12] MEDS ORDERED: CEFTRIAXONE SODIUM IV SCH (09:30)
[2020-07-12] MEDS ORDERED: SODIUM CHLORIDE 0.9% IV SCH (09:30)
[2020-07-12 10:00] VITALS: BP 105/70
[2020-07-12] MEDS ORDERED: CEFTRIAXONE SODIUM 2 GM VIAL IVP SCH (10:00)
[2020-07-12 11:44] VITALS: BP 126/51
== END 2020-07-12 11:54 | disposition home or self-care (01) ==
LOC: EDH 06:26
DX: N39.0 Urinary tract infection, site not specified (principal); E86.0 Dehydration; R53.83 Other fatigue; R53.81 Other malaise; Z90.49 Acquired absence of other specified parts of digestive tract; Z79.899 Other long term (current) drug therapy
CPT/HCPCS: 36415; 71045; 80053; 81001; 82140; 83605; 83690; 84484; 85027; 85610; 85730; 87077; 87088; 87186; 93005; 96361; 96374; 96375; 99285; J0696; J2405; J7030

== ENCOUNTER 2020-11-14 06:01 | Emergency (ER) | payer OTHER ==
[~2020-11-14] VITALS: Ht 175.3 cm; Wt 113.4 kg
[2020-11-14] MEDS ORDERED: DiphenhydrAMINE HCL 50 MG/ML VIAL ONE (06:51)
[2020-11-14] MEDS ORDERED: ONDANSETRON ODT 4MG TAB ONE (06:52)
[2020-11-14] MEDS ORDERED: DiphenhydrAMINE HCL 50 MG/ML VIAL IM SCH (07:00)
[2020-11-14] MEDS ORDERED: ONDANSETRON ODT 4MG TAB SL SCH (07:00)
[2020-11-14 07:19] LABS: ALBUMIN 2.8 g/dL (3.5-5.0); BILIRUBIN,TOTAL 1.9 mg/dL (0.2-1.0); CREATININE 0.9 mg/dL (0.5-1.5)
[2020-11-14 07:25] LABS: APPEARANCE,URINE Clear (CLEAR); BILIRUBIN,URINE Negative (NEGATIVE); COLOR,URINE Yellow (YELLOW); GLUCOSE, URINE (UA) Negative (NEGATIVE); KETONES,URINE Negative (NEGATIVE); LEUKOCYTE ESTERASE ,URINE Trace (NEGATIVE); NITRATE,URINE Negative (NEGATIVE); OCCULT BLOOD,URINE Trace (NEGATIVE); PROTEIN,URINE Negative (NEGATIVE)
[2020-11-14 07:27] LABS: HEMATOCRIT 34.7 % (42-54); MEAN CORPUSCULAR HEMOGLOBIN 33.6 pg (27.0-33.0); MEAN CORPUSCULAR HGB CONC 35.2 g/dL (32.0-36.0); MEAN CORPUSCULAR VOLUME 95.6 fL (79-99); RED BLOOD CELL COUNT(AUTO) 3.63 MIL/uL (4.50-6.20); RED CELL DISTRIBUTION WIDTH 12.9 % (11.0-15.5); WHITE BLOOD COUNT (AUTO) 5.6 K/uL (4.8-10.8)
[2020-11-14 07:45] LABS: RBC,URINE 0-1 /HPF (0-1)
[2020-11-14 07:46] LABS: BACTERIA,URINE Few /HPF (None Seen); WBC,URINE 0-1 /HPF (0-1)
[2020-11-14] MEDS ORDERED: ONDA4TAB10 PO (07:49)
[2020-11-14 08:01] VITALS: BP 114/71
== END 2020-11-14 08:05 | disposition home or self-care (01) ==
LOC: EDH 06:01
DX: G47.00 Insomnia, unspecified (principal); R11.0 Nausea; I10 Essential (primary) hypertension; J44.9 Chronic obstructive pulmonary disease, unspecified; Z79.899 Other long term (current) drug therapy; Z90.49 Acquired absence of other specified parts of digestive tract
CPT/HCPCS: 36415; 71045; 80053; 81001; 82140; 84484; 85027; 93005; 96372; 99285; J1200

== ENCOUNTER 2021-01-14 07:16 | Emergency (ER) | payer OTHER ==
[~2021-01-14] VITALS: Ht 165.1 cm; Wt 116.6 kg
[~2021-01-14 07:16] MED LIST changes: +ONDA4TAB10 PO
[2021-01-14 07:17] VITALS: BP 139/108
[2021-01-14 08:16] LABS: BASOPHILS % (AUTO) 0.9 % (0.0-5.0); EOSINOPHILS % (AUTO) 4.3 % (0.0-8.0); LYMPHOCYTES % (AUTO) 19.4 % (21.0-51.0); MEAN CORPUSCULAR HGB CONC 34.3 g/dL (32.0-36.0); MEAN CORPUSCULAR VOLUME 98.9 fL (79-99); MONOCYTES % (AUTO) 11.1 % (3.0-13.0); NEUTROPHILS % (AUTO) 64.1 % (40.0-77.0); PLATELET COUNT (AUTO) 71 K/uL (130-400); RED BLOOD CELL COUNT(AUTO) 3.74 MIL/uL (4.50-6.20); RED CELL DISTRIBUTION WIDTH 13.1 % (11.0-15.5); WHITE BLOOD COUNT (AUTO) 4.7 K/uL (4.8-10.8)
[2021-01-14 08:26] LABS: INR 1.24 (0.85-1.15); PROTHROMBIN TIME 13.3 SEC (9.6-11.6)
[2021-01-14 08:27] LABS: PARTIAL THROMBOPLASTIN TIME 31.8 SEC (26.3-35.5)
[2021-01-14 08:29] LABS: CREATININE 0.8 mg/dL (0.5-1.5); POTASSIUM 3.9 mmol/L (3.5-5.1)
[2021-01-14 08:31] LABS: ALBUMIN 2.8 g/dL (3.5-5.0); BILIRUBIN,TOTAL 1.9 mg/dL (0.2-1.0)
[2021-01-14] MEDS ORDERED: HYDROCODONE/ACETAMINOPHEN 10/325 MG TAB PO ONE (10:00)
[2021-01-14 12:00] LABS: APPEARANCE,URINE Clear (CLEAR); BILIRUBIN,URINE Small (NEGATIVE); COLOR,URINE Dark Yellow (YELLOW); GLUCOSE, URINE (UA) Negative (NEGATIVE); KETONES,URINE Trace mg/dL (NEGATIVE); LEUKOCYTE ESTERASE ,URINE Trace (NEGATIVE); NITRATE,URINE Negative (NEGATIVE); OCCULT BLOOD,URINE Negative (NEGATIVE); PROTEIN,URINE Trace mg/dL (NEGATIVE)
[2021-01-14 12:25] LABS: BACTERIA,URINE Few /HPF (None Seen); RBC,URINE 0-1 /HPF (0-1); SQUAMOUS EPITHELIAL CELL,UR 0-2 /HPF (0-2); WBC,URINE 0-1 /HPF (0-1)
[2021-01-14] MEDS ORDERED: ONDA4TAB10 PO (12:40)
== END 2021-01-14 12:57 | disposition home or self-care (01) ==
LOC: EDH 07:16
DX: K74.60 Unspecified cirrhosis of liver (principal); Z90.49 Acquired absence of other specified parts of digestive tract; Z79.899 Other long term (current) drug therapy
CPT/HCPCS: 36415; 76705; 80053; 81001; 82150; 82550; 83690; 85025; 85610; 85730

== ENCOUNTER 2021-04-03 23:28 | Observation (INO) | payer OTHER ==
[~2021-04-03] VITALS: Ht 175.3 cm; Wt 128.8 kg
[2021-04-04] MEDS ORDERED: KETOROLAC 30MG VIAL (30MG/ML) IV ONE
[2021-04-04] MEDS ORDERED: ONDANSETRON 4MG INJ IVP ONE
[2021-04-04] MEDS ORDERED: FAMOTIDINE 20MG VIAL IV ONE
[2021-04-04] MEDS ORDERED: METOCLOPRAMIDE 10 MG/2 ML VIAL IVP ONE
[2021-04-04 00:30] LABS: CREATININE 1.1 mg/dL (0.5-1.5); POTASSIUM 3.6 mmol/L (3.5-5.1)
[2021-04-04 00:33] LABS: BASOPHILS % (AUTO) 0.3 % (0.0-5.0); EOSINOPHILS % (AUTO) 1.3 % (0.0-8.0); HEMATOCRIT 41.4 % (42-54); LYMPHOCYTES % (AUTO) 9.2 % (21.0-51.0); MEAN CORPUSCULAR HGB CONC 34.3 g/dL (32.0-36.0); MEAN CORPUSCULAR VOLUME 96.3 fL (79-99); MONOCYTES % (AUTO) 6.3 % (3.0-13.0); NEUTROPHILS % (AUTO) 82.6 % (40.0-77.0); PLATELET COUNT (AUTO) 72 K/uL (130-400); RED CELL DISTRIBUTION WIDTH 13.4 % (11.0-15.5); WHITE BLOOD COUNT (AUTO) 6.2 K/uL (4.8-10.8)
[2021-04-04 00:34] LABS: ALBUMIN 3.1 g/dL (3.5-5.0); BILIRUBIN,TOTAL 3.3 mg/dL (0.2-1.0); TOTAL PROTEIN, SERUM 7.6 g/dL (6.0-8.3)
[2021-04-04] MEDS ORDERED: IOHEXOL 350 MG/ML 100ML INFUS..BTL IV ONE (00:40)
[2021-04-04 01:53] LABS: APPEARANCE,URINE Cloudy (CLEAR); BILIRUBIN,URINE Moderate (NEGATIVE); COLOR,URINE Dark Yellow (YELLOW); GLUCOSE, URINE (UA) Negative (NEGATIVE); KETONES,URINE Trace mg/dL (NEGATIVE); LEUKOCYTE ESTERASE ,URINE Small (NEGATIVE); NITRATE,URINE Positive (NEGATIVE); OCCULT BLOOD,URINE Moderate (NEGATIVE); PROTEIN,URINE POS 1+ mg/dL (NEGATIVE)
[2021-04-04 02:15] LABS: BACTERIA,URINE Few /HPF (None Seen); MUCUS,URINE Few LPF (None Seen)
[2021-04-04] MEDS ORDERED: CEFTRIAXONE 1G VIAL IVP ONE (02:30)
[2021-04-04] MEDS ORDERED: ZOLPIDEM TARTRATE 5 MG TAB PO PRN (03:00)
[2021-04-04] MEDS ORDERED: MAG/ALUM/SIMETH 30 ML UDCUP PO PRN (03:00)
[2021-04-04] MEDS ORDERED: ACETAMINOPHEN 325 MG TAB PO ONE (03:00)
[2021-04-04] MEDS ORDERED: LACTULOSE 20 GM/30 ML UDCUP PO ONE (03:00)
[2021-04-04] MEDS ORDERED: GUAIFENESIN-DM 200/20 MG 10 ML PO PRN (03:00)
[2021-04-04] MEDS ORDERED: 0.9% NACL 500ML IV.SOLN 500 ML IV ONE (03:00)
[2021-04-04] MEDS ORDERED: MORPHINE 2 MG SYG IVP ONE (03:00)
[2021-04-04] MEDS ORDERED: NITROGLYCERIN 0.4 MG SL TAB SL PRN (03:00)
[2021-04-04] MEDS ORDERED: ONDANSETRON 4MG INJ IV PRN (03:00)
[2021-04-04] MEDS ORDERED: LACT10SO9 PO (03:05)
[2021-04-04] MEDS ORDERED: FURO40TA5 PO (03:05)
[2021-04-04] MEDS ORDERED: SPIR50TA5 PO (03:05)
[2021-04-04] MEDS: FAMOTIDINE 20MG TAB PO SCH (07:38)
[2021-04-04] MEDS: FUROSEMIDE 40 MG TABLET PO SCH ×2 (07:38→20:45)
[2021-04-04 08:00] VITALS: BP 126/85
[2021-04-04] MEDS ORDERED: CEFTRIAXONE 1G VIAL IV SCH (09:00)
[2021-04-04] MEDS ORDERED: LACTULOSE 20 GM/30 ML UDCUP PO SCH (09:00)
[2021-04-04] MEDS: SPIRONOLACTONE 25 MG TAB PO SCH ×2 (09:35→20:46)
[2021-04-04] MEDS: LACTULOSE 20 GM/30 ML UDCUP PO SCH ×3 (09:36→20:46)
[2021-04-04 10:34] LABS: AMPHET/METH SCREEN,URINE NEGATIVE (NEGATIVE); BARBITURATE SCREEN, URINE NEGATIVE (NEGATIVE); BENZODIAZEPINES SCREEN,URINE NEGATIVE (NEGATIVE); CANNABINOID SCREEN,URINE NEGATIVE (NEGATIVE); COCAINE SCREEN,URINE NEGATIVE (NEGATIVE); OPIATE SCREEN,URINE POSITIVE (NEGATIVE); PHENCYCLIDINE SCREEN,URINE NEGATIVE (NEGATIVE)
[2021-04-04 10:41] LABS: INR 1.41 (0.85-1.15); PROTHROMBIN TIME 14.9 SEC (9.6-11.6)
[2021-04-04 12:00] VITALS: BP 124/76
[2021-04-04] MEDS ORDERED: MAGNESIUM CITRATE 296 ML SOLUTION PO PRN (12:00)
[2021-04-04] MEDS: METRONIDAZOLE 500MG/100ML BAG 100 ML IVPB SCH ×2 (14:00→20:46)
[2021-04-04 16:00] VITALS: BP 126/82
[2021-04-04] MEDS: LEVOFLOXACIN 750 MG/D5W 150 ML 150 ML IV SCH (18:11)
[2021-04-04 20:00] VITALS: BP 125/82
[2021-04-05 00:22] VITALS: BP 147/81
[2021-04-05 04:00] VITALS: BP 132/87
[2021-04-05 04:46] LABS: BASOPHILS % (AUTO) 0.4 % (0.0-5.0); EOSINOPHILS % (AUTO) 3.2 % (0.0-8.0); HEMATOCRIT 36.3 % (42-54); LYMPHOCYTES % (AUTO) 13.2 % (21.0-51.0); MEAN CORPUSCULAR HEMOGLOBIN 33.5 pg (27.0-33.0); MEAN CORPUSCULAR HGB CONC 34.7 g/dL (32.0-36.0); MEAN CORPUSCULAR VOLUME 96.5 fL (79-99); MONOCYTES % (AUTO) 9.2 % (3.0-13.0); NEUTROPHILS % (AUTO) 73.8 % (40.0-77.0); PLATELET COUNT (AUTO) 60 K/uL (130-400); RED BLOOD CELL COUNT(AUTO) 3.76 MIL/uL (4.50-6.20); RED CELL DISTRIBUTION WIDTH 13.5 % (11.0-15.5); WHITE BLOOD COUNT (AUTO) 4.7 K/uL (4.8-10.8)
[2021-04-05 05:03] LABS: ALBUMIN 2.6 g/dL (3.5-5.0); BILIRUBIN,DIRECT 0.8 mg/dL (0.0-0.3); BILIRUBIN,TOTAL 2.8 mg/dL (0.2-1.0); CREATININE 0.9 mg/dL (0.5-1.5)
[2021-04-05] MEDS: METRONIDAZOLE 500MG/100ML BAG 100 ML IVPB SCH (05:52)
[2021-04-05 08:00] VITALS: BP 130/69
[2021-04-05] MEDS ORDERED: LEVO500T90 PO (09:19)
[2021-04-05] MEDS ORDERED: METR-172 PO (09:19)
[2021-04-05] MEDS: LEVOFLOXACIN 750 MG/D5W 150 ML 150 ML IV SCH (09:36)
[2021-04-05] MEDS: LACTULOSE 20 GM/30 ML UDCUP PO SCH (09:37)
[2021-04-05] MEDS: SPIRONOLACTONE 25 MG TAB PO SCH (09:37)
[2021-04-05] MEDS: FAMOTIDINE 20MG TAB PO SCH (09:37)
[2021-04-05] MEDS: FUROSEMIDE 40 MG TABLET PO SCH (09:37)
[2021-04-05 12:00] VITALS: BP 125/78
== END 2021-04-05 14:55 | disposition home or self-care (01) ==
LOC: EDH 23:28 → EDHIP 04-04 02:45 → 3DH 04-04 08:09
PROVIDERS: ADMIT Internal Medicine Pulmonary Disease; ATTEND Internal Medicine Pulmonary Disease
DX: R50.9 Fever, unspecified (principal); Z20.822 Contact with and (suspected) exposure to COVID-19; R10.9 Unspecified abdominal pain; N39.0 Urinary tract infection, site not specified; G89.29 Other chronic pain; K74.60 Unspecified cirrhosis of liver; I83.90 Asymptomatic varicose veins of unspecified lower extremity; E72.20 Disorder of urea cycle metabolism, unspecified; D69.6 Thrombocytopenia, unspecified; I12.9 Hypertensive chronic kidney disease with stage 1 through stage 4 chronic kidney disease, or unspecified chronic kidney disease; N18.2 Chronic kidney disease, stage 2 (mild); I85.00 Esophageal varices without bleeding; E66.01 Morbid (severe) obesity due to excess calories; Z68.41 Body mass index [BMI] 40.0-44.9, adult; Z87.442 Personal history of urinary calculi; Z79.899 Other long term (current) drug therapy; Z87.440 Personal history of urinary (tract) infections; Z91.14 Patient's other noncompliance with medication regimen
CPT/HCPCS: 36415 ×2; 71045 ×2; 74177; 80048; 80053; 80076; 80305; 81001; 82140 ×2; 83605; 83690; 84484; 85025 ×2; 85610; 85730; 87040 ×2; 87088; 87635; 87804 ×2; 96361; 96365; 96366 ×2; 96368; 96375; 96376; 99285; C9803; G0378 ×36; J0696 ×2; J1885; J1956 ×2; J2405; J2765; J3490 ×2; J7040; Q9967

== ENCOUNTER 2021-05-03 21:16 | Emergency (ER) | payer OTHER ==
[~2021-05-03] VITALS: Ht 175.3 cm; Wt 110.7 kg
[~2021-05-03 21:16] MED LIST changes: -CEPH500B PO; -CYAN10007 IM; -LACT10SO76 PO; +LACT10SO9 PO; +LEVO500T90 PO; +METR-172 PO
[2021-05-03 22:16] LABS: APPEARANCE,URINE TURBID (CLEAR); BILIRUBIN,URINE SMALL (NEGATIVE); COLOR,URINE RED (YELLOW); GLUCOSE, URINE (UA) NEGATIVE (NEGATIVE); KETONES,URINE 5 mg/dL (NEGATIVE); LEUKOCYTE ESTERASE ,URINE NEGATIVE (NEGATIVE); NITRATE,URINE POSITIVE (NEGATIVE); OCCULT BLOOD,URINE LARGE (NEGATIVE); PH,URINE 6.5 (5.0-8.0); PROTEIN,URINE >=300 mg/dL (NEGATIVE)
[2021-05-03 22:20] LABS: RBC,URINE TNTC /HPF (0-1); WBC,URINE 0-1 /HPF (0-1)
[2021-05-03 22:21] LABS: BACTERIA,URINE Rare /HPF (None Seen); SQUAMOUS EPITHELIAL CELL,UR None Seen /HPF (0-2)
[2021-05-03 22:30] LABS: BASOPHILS % (AUTO) 0.7 % (0.0-5.0); EOSINOPHILS % (AUTO) 3.6 % (0.0-8.0); HEMATOCRIT 39.9 % (42-54); LYMPHOCYTES % (AUTO) 15.5 % (21.0-51.0); MEAN CORPUSCULAR HEMOGLOBIN 32.6 pg (27.0-33.0); MEAN CORPUSCULAR HGB CONC 33.8 g/dL (32.0-36.0); MEAN CORPUSCULAR VOLUME 96.4 fL (79-99); MONOCYTES % (AUTO) 13.3 % (3.0-13.0); NEUTROPHILS % (AUTO) 66.5 % (40.0-77.0); PLATELET COUNT (AUTO) 74 K/uL (130-400); RED BLOOD CELL COUNT(AUTO) 4.14 MIL/uL (4.50-6.20); RED CELL DISTRIBUTION WIDTH 13.6 % (11.0-15.5); WHITE BLOOD COUNT (AUTO) 5.6 K/uL (4.8-10.8)
[2021-05-03] MEDS ORDERED: KETOROLAC 30MG VIAL (30MG/ML) IV ONE (22:30)
[2021-05-03] MEDS ORDERED: ONDANSETRON 4MG INJ IVP ONE (22:30)
[2021-05-03] MEDS ORDERED: 0.9%NACL 1000ML 1,000 ML IV ONE (22:30)
[2021-05-03] MEDS ORDERED: METOCLOPRAMIDE 10 MG/2 ML VIAL IVP ONE (22:30)
[2021-05-03 22:44] LABS: BILIRUBIN,TOTAL 3.2 mg/dL (0.2-1.0); CREATININE 1.1 mg/dL (0.5-1.5); TOTAL PROTEIN, SERUM 7.7 g/dL (6.0-8.3)
[2021-05-03] MEDS ORDERED: LACTULOSE 20 GM/30 ML UDCUP ONE (22:55)
[2021-05-03] MEDS ORDERED: LACTULOSE 20 GM/30 ML UDCUP PO ONE (23:00)
[2021-05-04 00:29] VITALS: BP 142/76
[2021-05-04] MEDS ORDERED: TAMSULOSIN HCL 0.4 MG CAP.ER.24H PO ONE (00:30)
[2021-05-04] MEDS ORDERED: METO-296 PO (01:08)
[2021-05-04] MEDS ORDERED: TAMS-1 PO (01:08)
[2021-05-04] MEDS ORDERED: MELO7.5T12 PO (01:08)
[2021-05-04] MEDS ORDERED: DICY20TA2 PO (01:08)
[2021-05-04] MEDS ORDERED: ONDA4TAB10 PO (01:08)
[2021-05-05] MEDS ORDERED: MACR100 PO (14:57)
== END 2021-05-04 01:19 | disposition home or self-care (01) ==
LOC: EDH 21:16
DX: E86.9 Volume depletion, unspecified (principal); R31.9 Hematuria, unspecified; N23 Unspecified renal colic; E72.29 Other disorders of urea cycle metabolism; Z79.1 Long term (current) use of non-steroidal anti-inflammatories (NSAID); Z87.442 Personal history of urinary calculi; Z90.49 Acquired absence of other specified parts of digestive tract
CPT/HCPCS: 36415; 74176; 80053; 81001; 82140; 83605; 83690; 85025; 87077; 87088; 87186; 93005; 96374; 96375; 99285; J1885; J2405; J2765; J7030; 96361

== ENCOUNTER 2021-05-05 14:19 | Emergency (ER) | payer OTHER ==
[~2021-05-05] VITALS: Ht 175.3 cm; Wt 115.7 kg
[~2021-05-05 14:19] MED LIST changes: +DICY20TA2 PO; +MELO7.5T12 PO; +METO-296 PO; +TAMS-1 PO
[2021-05-05 14:25] VITALS: BP 129/80
[2021-05-05] MEDS ORDERED: MACR100 PO (14:57)
[2021-05-05] MEDS ORDERED: CEFTRIAXONE 1G VIAL IM ONE (15:00)
== END 2021-05-05 15:17 | disposition home or self-care (01) ==
LOC: EDH 14:19
DX: N39.0 Urinary tract infection, site not specified (principal); Z90.49 Acquired absence of other specified parts of digestive tract; Z79.1 Long term (current) use of non-steroidal anti-inflammatories (NSAID); Z87.442 Personal history of urinary calculi
CPT/HCPCS: J0696

== ENCOUNTER 2021-06-17 03:05 | Emergency (ER) | payer OTHER ==
[~2021-06-17] VITALS: Ht 175.3 cm; Wt 115.2 kg
[~2021-06-17 03:05] MED LIST changes: +MACR100 PO
[2021-06-17] MEDS ORDERED: MORPHINE 4 MG SYG IVP ONE (03:30)
[2021-06-17] MEDS ORDERED: ONDANSETRON 4MG INJ IVP ONE (03:30)
[2021-06-17 03:38] LABS: BASOPHILS % (AUTO) 0.2 % (0.0-5.0); HEMATOCRIT 37.7 % (42-54); LYMPHOCYTES % (AUTO) 4.6 % (21.0-51.0); MEAN CORPUSCULAR HEMOGLOBIN 33.7 pg (27.0-33.0); MEAN CORPUSCULAR HGB CONC 34.5 g/dL (32.0-36.0); MEAN CORPUSCULAR VOLUME 97.7 fL (79-99); MONOCYTES % (AUTO) 5.8 % (3.0-13.0); PLATELET COUNT (AUTO) 60 K/uL (130-400); RED BLOOD CELL COUNT(AUTO) 3.86 MIL/uL (4.50-6.20); RED CELL DISTRIBUTION WIDTH 14.3 % (11.0-15.5); WHITE BLOOD COUNT (AUTO) 5.4 K/uL (4.8-10.8)
[2021-06-17 03:49] LABS: CREATININE 1.1 mg/dL (0.5-1.5); POTASSIUM 4.8 mmol/L (3.5-5.1)
[2021-06-17 03:53] LABS: ALBUMIN 2.7 g/dL (3.5-5.0); BILIRUBIN,TOTAL 2.6 mg/dL (0.2-1.0); TOTAL PROTEIN, SERUM 7.4 g/dL (6.0-8.3)
[2021-06-17 04:51] LABS: PLATELET MORPHOLOGY COMMENT DECREASED
[2021-06-17 05:03] LABS: APPEARANCE,URINE CLOUDY (CLEAR); BILIRUBIN,URINE Small (NEGATIVE); COLOR,URINE Dark Yellow (YELLOW); GLUCOSE, URINE (UA) TRACE mg/dL (NEGATIVE); KETONES,URINE 15 mg/dL (NEGATIVE); LEUKOCYTE ESTERASE ,URINE Small (NEGATIVE); NITRATE,URINE Positive (NEGATIVE); OCCULT BLOOD,URINE Small (NEGATIVE); PROTEIN,URINE POS 2+ mg/dL (NEGATIVE)
[2021-06-17 05:24] LABS: AMORPHOUS SEDIMENT,UR Few /LPF (None Seen); BACTERIA,URINE Few /HPF (None Seen); MUCUS,URINE Moderate LPF (None Seen)
[2021-06-17] MEDS ORDERED: SIMETHICONE 80 MG TAB.CHEW PO SCH (07:00)
[2021-06-17] MEDS ORDERED: METOCLOPRAMIDE 10 MG/2 ML VIAL IVP ONE (07:00)
[2021-06-17 07:41] VITALS: BP 131/76
[2021-06-17] MEDS ORDERED: SIME180C70 PO (07:56)
[2021-06-17] MEDS ORDERED: METO10TA41 PO (07:56)
== END 2021-06-17 08:45 | disposition home or self-care (01) ==
LOC: EDH 03:05
DX: R10.10 Upper abdominal pain, unspecified (principal); K31.0 Acute dilatation of stomach; K74.60 Unspecified cirrhosis of liver; I50.9 Heart failure, unspecified; Z79.899 Other long term (current) drug therapy; Z90.49 Acquired absence of other specified parts of digestive tract
CPT/HCPCS: 36415; 71045; 74176; 80053; 81001; 82550; 83690; 84484; 85025; 87088; 93005; 96374; 96375; 99285; J2270; J2405; J2765

== ENCOUNTER → 2021-07-20 | Outpatient (CLI) | payer OTHER ==
[~2021-07-20] MED LIST changes: +METO10TA41 PO; +SIME180C70 PO
== END | disposition home or self-care (01) ==
LOC: RAH 08:45
PROVIDERS: ATTEND Family Medicine
DX: N28.1 Cyst of kidney, acquired (principal); R31.9 Hematuria, unspecified
CPT/HCPCS: 76770

== ENCOUNTER 2021-09-18 13:12 | Observation (INO) | payer OTHER ==
[~2021-09-18] VITALS: Ht 175.3 cm; Wt 111.1 kg
[~2021-09-18 13:12] MED LIST changes: +LEVO-70 PO; -LEVO500T90 PO
[2021-09-18 13:47] LABS: BASOPHILS % (AUTO) 1.2 % (0.0-5.0); EOSINOPHILS % (AUTO) 3.3 % (0.0-8.0); HEMATOCRIT 34.5 % (42-54); LYMPHOCYTES % (AUTO) 21.8 % (21.0-51.0); MEAN CORPUSCULAR HEMOGLOBIN 33.8 pg (27.0-33.0); MEAN CORPUSCULAR HGB CONC 35.4 g/dL (32.0-36.0); MEAN CORPUSCULAR VOLUME 95.6 fL (79-99); MONOCYTES % (AUTO) 9.5 % (3.0-13.0); NEUTROPHILS % (AUTO) 64.2 % (40.0-77.0); PLATELET COUNT (AUTO) 53 K/uL (130-400); RED BLOOD CELL COUNT(AUTO) 3.61 MIL/uL (4.50-6.20); RED CELL DISTRIBUTION WIDTH 13.2 % (11.0-15.5); WHITE BLOOD COUNT (AUTO) 2.4 K/uL (4.8-10.8)
[2021-09-18 14:04] LABS: CREATININE 0.9 mg/dL (0.5-1.5); POTASSIUM 4.7 mmol/L (3.5-5.1)
[2021-09-18 14:13] LABS: ALBUMIN 2.7 g/dL (3.5-5.0); TOTAL PROTEIN, SERUM 6.7 g/dL (6.0-8.3)
[2021-09-18] MEDS ORDERED: 0.9%NACL 1000ML 1,000 ML IV ONE (14:16)
[2021-09-18] MEDS ORDERED: ONDANSETRON 4MG INJ ONE (14:16)
[2021-09-18] MEDS ORDERED: ONDANSETRON 4MG INJ IVP ONE (14:30)
[2021-09-18] MEDS ORDERED: 0.9%NACL 1000ML 1,413 ML IV ONE (14:30)
[2021-09-18 14:46] LABS: INR 1.27 (0.85-1.15); PROTHROMBIN TIME 13.7 SEC (9.6-11.6)
[2021-09-18 14:48] LABS: PARTIAL THROMBOPLASTIN TIME 32.7 SEC (26.3-35.5)
[2021-09-18 15:16] LABS: EOSINOPHILS % (MANUAL) 3 % (1-6); LYMPHOCYTES % (MANUAL) 16 % (22-44); MONOCYTES % (MANUAL) 5 % (2-9); SEGMENTED NEUTROPHILS % 76 % (40-70)
[2021-09-18 15:17] LABS: MAN.DIFF COMMENT-IMPRESSION MANUAL DIFFERENTIAL; PLATELET MORPHOLOGY COMMENT DECREASED
[2021-09-18] MEDS ORDERED: LACTULOSE 20 GM/30 ML UDCUP ONE (15:21)
[2021-09-18] MEDS ORDERED: LACTULOSE 20 GM/30 ML UDCUP PO ONE (15:38)
[2021-09-18] MEDS ORDERED: ONDANSETRON 4MG INJ IVP PRN (17:00)
[2021-09-18] MEDS ORDERED: 0.9%NACL 1000ML 1,000 ML IV SCH (17:00)
[2021-09-18] MEDS ORDERED: DEXTROSE 50%-WATER 50 ML DISP.SYRIN IV PRN (17:00)
[2021-09-18] MEDS ORDERED: ACETAMINOPHEN 325 MG TAB PO PRN (17:00)
[2021-09-18] MEDS ORDERED: GLUCAGON 1MG KIT 1 MG ML IM PRN (17:00)
[2021-09-18] MEDS ORDERED: ACETAMINOPHEN 650 MG SUPPOSITORY RC PRN (17:00)
[2021-09-18 17:20] LABS: APPEARANCE,URINE CLEAR (CLEAR); BILIRUBIN,URINE NEGATIVE (NEGATIVE); COLOR,URINE YELLOW (YELLOW); GLUCOSE, URINE (UA) NEGATIVE (NEGATIVE); KETONES,URINE NEGATIVE (NEGATIVE); LEUKOCYTE ESTERASE ,URINE NEGATIVE (NEGATIVE); NITRATE,URINE NEGATIVE (NEGATIVE); OCCULT BLOOD,URINE NEGATIVE (NEGATIVE); PH,URINE 6.5 (5.0-8.0); PROTEIN,URINE NEGATIVE (NEGATIVE)
[2021-09-18] MEDS: LACTULOSE 20 GM/30 ML UDCUP PO SCH ×2 (17:34→23:15)
[2021-09-18] MEDS: LEVOFLOXACIN 500 MG/D5W 100 ML IV SCH (17:34)
[2021-09-18 20:57] VITALS: BP 146/88
[2021-09-18] MEDS ORDERED: TRAZ-185 PO (21:20)
[2021-09-18] MEDS: METRONIDAZOLE 500MG/100ML BAG 100 ML IVPB SCH (21:28)
[2021-09-18] MEDS ORDERED: TRAZODONE HCL 100 MG TABLET PO SCH (23:46)
[2021-09-18] MEDS ORDERED: PANT40TA54 PO (23:50)
[2021-09-18] MEDS ORDERED: FURO40TA5 PO (23:50)
[2021-09-18] MEDS ORDERED: TRAZODONE HCL 100 MG TABLET ONE (23:55)
[2021-09-19] VITALS: BP 127/75
[2021-09-19 04:00] VITALS: BP 128/78
[2021-09-19] MEDS: LACTULOSE 20 GM/30 ML UDCUP PO SCH (04:13)
[2021-09-19] MEDS: METRONIDAZOLE 500MG/100ML BAG 100 ML IVPB SCH (04:13)
[2021-09-19 05:47] LABS: HEMATOCRIT 33.2 % (42-54); MEAN CORPUSCULAR HEMOGLOBIN 33.8 pg (27.0-33.0); MEAN CORPUSCULAR HGB CONC 34.9 g/dL (32.0-36.0); MEAN CORPUSCULAR VOLUME 96.8 fL (79-99); RED BLOOD CELL COUNT(AUTO) 3.43 MIL/uL (4.50-6.20); RED CELL DISTRIBUTION WIDTH 13.3 % (11.0-15.5); WHITE BLOOD COUNT (AUTO) 2.7 K/uL (4.8-10.8)
[2021-09-19 06:00] LABS: ALBUMIN 2.5 g/dL (3.5-5.0); CREATININE 0.9 mg/dL (0.5-1.5); POTASSIUM 4.2 mmol/L (3.5-5.1); TOTAL PROTEIN, SERUM 6.4 g/dL (6.0-8.3)
[2021-09-19 08:00] VITALS: BP 114/57
[2021-09-19] MEDS ORDERED: PANTOPRAZOLE 40 MG TAB DR PO SCH (09:00)
[2021-09-19] MEDS ORDERED: SPIRONOLACTONE 25 MG TAB PO SCH (09:00)
[2021-09-19] MEDS ORDERED: FUROSEMIDE 40 MG TABLET PO SCH (09:00)
[2021-09-19] MEDS: LEVOFLOXACIN 500 MG/D5W 100 ML IV SCH (10:08)
[2021-09-19 12:00] VITALS: BP 105/58
[2021-09-19] MEDS ORDERED: TRAZODONE HCL 50 MG TAB PO SCH (21:00)
== END 2021-09-19 15:10 | disposition home or self-care (01) ==
LOC: EDH 13:12 → EDHIP 13:13 → 3DH 20:57
PROVIDERS: ADMIT Internal Medicine Critical Care Medicine; ATTEND Internal Medicine Critical Care Medicine
DX: E72.20 Disorder of urea cycle metabolism, unspecified (principal); Z20.822 Contact with and (suspected) exposure to COVID-19; K72.90 Hepatic failure, unspecified without coma; K74.60 Unspecified cirrhosis of liver; R16.1 Splenomegaly, not elsewhere classified; I83.90 Asymptomatic varicose veins of unspecified lower extremity; K52.9 Noninfective gastroenteritis and colitis, unspecified; R10.9 Unspecified abdominal pain; R11.2 Nausea with vomiting, unspecified; R74.01 Elevation of levels of liver transaminase levels; D68.9 Coagulation defect, unspecified; D61.818 Other pancytopenia; D69.6 Thrombocytopenia, unspecified; D64.9 Anemia, unspecified; E87.1 Hypo-osmolality and hyponatremia; F41.9 Anxiety disorder, unspecified; G47.00 Insomnia, unspecified; D63.8 Anemia in other chronic diseases classified elsewhere; E86.0 Dehydration; G89.29 Other chronic pain; K76.0 Fatty (change of) liver, not elsewhere classified; Z87.442 Personal history of urinary calculi; Z91.19 Patient's noncompliance with other medical treatment and regimen; Z90.49 Acquired absence of other specified parts of digestive tract; Z79.899 Other long term (current) drug therapy; Z98.890 Other specified postprocedural states
CPT/HCPCS: 96361; 96365; 96375; 96367; 99284; 83735; 84484; 80053 ×2; 82140 ×2; 83690; 85025; 85610; 85730; 87804 ×2; 81003; 36415 ×2; 87635; 93005; 96366; 85027; 84145; G0378 ×22; C9803; J1956 ×2; J7030 ×2; J2405; J3490 ×2

== ENCOUNTER 2021-11-20 23:05 | Observation (INO) | payer BC, OTHER ==
[~2021-11-20] VITALS: Ht 175.3 cm; Wt 116.8 kg
[~2021-11-20 23:05] MED LIST changes: -DICY20TA2 PO; -LEVO-70 PO; -MACR100 PO; -MELO7.5T12 PO; -METO-296 PO; -METO10TA41 PO; -METR-172 PO; -ONDA4TAB10 PO; +PANT40TA54 PO; -SIME180C70 PO; -TAMS-1 PO; +TRAZ-185 PO
[2021-11-20 23:33] LABS: BASOPHILS % (AUTO) 0.8 % (0.0-5.0); EOSINOPHILS % (AUTO) 3.8 % (0.0-8.0); HEMATOCRIT 36.6 % (42-54); LYMPHOCYTES % (AUTO) 19.9 % (21.0-51.0); MEAN CORPUSCULAR HEMOGLOBIN 33.2 pg (27.0-33.0); MEAN CORPUSCULAR HGB CONC 35.2 g/dL (32.0-36.0); MEAN CORPUSCULAR VOLUME 94.3 fL (79-99); MONOCYTES % (AUTO) 9.1 % (3.0-13.0); NEUTROPHILS % (AUTO) 66.1 % (40.0-77.0); PLATELET COUNT (AUTO) 64 K/uL (130-400); RED BLOOD CELL COUNT(AUTO) 3.88 MIL/uL (4.50-6.20)
[2021-11-20 23:43] LABS: CREATININE 0.9 mg/dL (0.5-1.5); POTASSIUM 4.1 mmol/L (3.5-5.1)
[2021-11-20 23:47] LABS: ALBUMIN 2.8 g/dL (3.5-5.0); MAGNESIUM 1.8 mg/dL (1.80-2.40); TOTAL PROTEIN, SERUM 7.3 g/dL (6.0-8.3)
[2021-11-20 23:57] LABS: PLATELET MORPHOLOGY COMMENT LARGE PLTS PRESENT
[2021-11-21] MEDS ORDERED: HYDRALAZINE 20MG/ML VIAL IV PRN (01:00)
[2021-11-21] MEDS ORDERED: DOCUSATE SODIUM 100 MG CAP PO PRN (01:00)
[2021-11-21] MEDS ORDERED: ONDANSETRON 4MG INJ IVP PRN (01:00)
[2021-11-21] MEDS ORDERED: CLONIDINE HCL 0.1 MG TABLET PO PRN (01:00)
[2021-11-21] MEDS ORDERED: ACETAMINOPHEN 325 MG TAB PO PRN (01:00)
[2021-11-21 01:06] LABS: INR 1.34 (0.85-1.15); PROTHROMBIN TIME 14.4 SEC (9.6-11.6)
[2021-11-21 01:07] LABS: PARTIAL THROMBOPLASTIN TIME 32.1 SEC (26.3-35.5)
[2021-11-21] MEDS: LACTULOSE 20 GM/30 ML UDCUP PO SCH ×3 (01:08→12:48)
[2021-11-21] MEDS ORDERED: TRAMADOL HCL 50 MG TABLET PO PRN (02:00)
[2021-11-21 02:10] VITALS: BP 128/76
[2021-11-21] MEDS ORDERED: TAMS-1 PO (03:34)
[2021-11-21 04:19] LABS: APPEARANCE,URINE CLEAR (CLEAR); BILIRUBIN,URINE 0.5 mg/dL (NEGATIVE); COLOR,URINE YELLOW (YELLOW); GLUCOSE, URINE (UA) NEGATIVE (NEGATIVE); KETONES,URINE NEGATIVE (NEGATIVE); LEUKOCYTE ESTERASE ,URINE 75 Leu/uL (NEGATIVE); NITRATE,URINE NEGATIVE (NEGATIVE); PH,URINE 6.5 (5.0-8.0); PROTEIN,URINE 30 mg/dL (NEGATIVE); UROBILINOGEN,URINE 12 mg/dL (0.2-1.0)
[2021-11-21 04:24] LABS: BACTERIA,URINE RARE /HPF (None Seen); MUCUS,URINE MANY LPF (None Seen); SQUAMOUS EPITHELIAL CELL,UR RARE /HPF (0-2)
[2021-11-21] MEDS ORDERED: CEFTRIAXONE 2GM VIAL IVP SCH (07:00)
[2021-11-21 07:01] LABS: BASOPHILS % (AUTO) 0.6 % (0.0-5.0); EOSINOPHILS % (AUTO) 2.7 % (0.0-8.0); HEMATOCRIT 34.5 % (42-54); LYMPHOCYTES % (AUTO) 21.6 % (21.0-51.0); MEAN CORPUSCULAR HEMOGLOBIN 33.3 pg (27.0-33.0); MEAN CORPUSCULAR HGB CONC 34.8 g/dL (32.0-36.0); MEAN CORPUSCULAR VOLUME 95.8 fL (79-99); MONOCYTES % (AUTO) 8.1 % (3.0-13.0); NEUTROPHILS % (AUTO) 66.7 % (40.0-77.0); PLATELET COUNT (AUTO) 54 K/uL (130-400); RED CELL DISTRIBUTION WIDTH 13.1 % (11.0-15.5); WHITE BLOOD COUNT (AUTO) 3.3 K/uL (4.8-10.8)
[2021-11-21 07:12] LABS: ALBUMIN 2.4 g/dL (3.5-5.0); CREATININE 0.9 mg/dL (0.5-1.5); POTASSIUM 4.2 mmol/L (3.5-5.1); TOTAL PROTEIN, SERUM 6.6 g/dL (6.0-8.3)
[2021-11-21 07:20] VITALS: BP_SYST 126; BP_DIAS 73; BP_DIAS 74
[2021-11-21] MEDS ORDERED: FUROSEMIDE 40 MG TABLET PO SCH (09:00)
[2021-11-21] MEDS ORDERED: SPIRONOLACTONE 25 MG TAB PO SCH (09:00)
[2021-11-21] MEDS ORDERED: TAMSULOSIN HCL 0.4 MG CAP.ER.24H PO SCH (09:00)
[2021-11-21] MEDS ORDERED: PANTOPRAZOLE 40 MG TAB DR PO SCH (09:00)
[2021-11-21 11:20] VITALS: BP 99/52
[2021-11-21 15:20] VITALS: BP 150/89
[2021-11-21] MEDS ORDERED: CIPR-278 PO (16:25)
== END 2021-11-21 17:05 | disposition home or self-care (01) ==
LOC: EDH 23:05 → EDHIP 11-21 00:34 → 3AH 11-21 01:43
PROVIDERS: ADMIT Internal Medicine; ATTEND Internal Medicine
DX: K76.82 Hepatic encephalopathy (principal); Z20.822 Contact with and (suspected) exposure to COVID-19; K72.00 Acute and subacute hepatic failure without coma; E72.20 Disorder of urea cycle metabolism, unspecified; K74.60 Unspecified cirrhosis of liver; K76.0 Fatty (change of) liver, not elsewhere classified; N39.0 Urinary tract infection, site not specified; N40.0 Benign prostatic hyperplasia without lower urinary tract symptoms; Z90.49 Acquired absence of other specified parts of digestive tract
CPT/HCPCS: 83735; 84484; 80053 ×2; 82140 ×2; 83690; 85025 ×2; 87804 ×2; 36415 ×2; 87635; 71045; 93005; 96374; 96376; 99285; 85610; 85730; 86850; 86900; 86901; 87088; 82948 ×3; 81001; 74176; C9803; G0378 ×16; J0696 ×2; J2405

== ENCOUNTER 2022-05-29 21:17 | Observation (INO) | payer BC ==
[~2022-05-29] VITALS: Ht 175.3 cm; Wt 109.4 kg
[~2022-05-29 21:17] MED LIST changes: +LEVO-70 PO; +RIFA550T PO; +TAMS-1 PO
[2022-05-29 22:19] LABS: BASOPHILS % (AUTO) 0.6 % (0.0-5.0); EOSINOPHILS % (AUTO) 3.3 % (0.0-8.0); LYMPHOCYTES % (AUTO) 9.2 % (21.0-51.0); MEAN CORPUSCULAR HEMOGLOBIN 33.6 pg (27.0-33.0); MEAN CORPUSCULAR HGB CONC 34.7 g/dL (32.0-36.0); MEAN CORPUSCULAR VOLUME 96.8 fL (79-99); MONOCYTES % (AUTO) 12.7 % (3.0-13.0); NEUTROPHILS % (AUTO) 73.8 % (40.0-77.0); PLATELET COUNT (AUTO) 76 K/uL (130-400); RED BLOOD CELL COUNT(AUTO) 3.72 MIL/uL (4.50-6.20); RED CELL DISTRIBUTION WIDTH 13.3 % (11.0-15.5); WHITE BLOOD COUNT (AUTO) 5.1 K/uL (4.8-10.8)
[2022-05-29 22:29] LABS: APPEARANCE,URINE CLOUDY (CLEAR); BILIRUBIN,URINE 0.5 mg/dL (NEGATIVE); COLOR,URINE DARK-YELLOW (YELLOW); GLUCOSE, URINE (UA) NEGATIVE (NEGATIVE); KETONES,URINE 5 mg/dL (NEGATIVE); LEUKOCYTE ESTERASE ,URINE 75 Leu/uL (NEGATIVE); NITRATE,URINE NEGATIVE (NEGATIVE); OCCULT BLOOD,URINE LARGE (NEGATIVE); PROTEIN,URINE 70 mg/dL (NEGATIVE)
[2022-05-29] MEDS ORDERED: IBUPROFEN 600 MG TABLET PO ONE (22:30)
[2022-05-29 22:32] LABS: CREATININE 0.9 mg/dL (0.5-1.5); POTASSIUM 3.9 mmol/L (3.5-5.1)
[2022-05-29 22:39] LABS: ALBUMIN 2.2 g/dL (3.5-5.0); TOTAL PROTEIN, SERUM 7.2 g/dL (6.0-8.3)
[2022-05-29 22:45] LABS: BACTERIA,URINE MOD /HPF (None Seen); MUCUS,URINE MANY LPF (None Seen); SQUAMOUS EPITHELIAL CELL,UR FEW /HPF (0-2)
[2022-05-29 22:55] LABS: INR 1.26 (0.85-1.15); PROTHROMBIN TIME 13.6 SEC (9.6-11.6)
[2022-05-29 22:57] LABS: PARTIAL THROMBOPLASTIN TIME 34.4 SEC (26.3-35.5)
[2022-05-30] MEDS ORDERED: CEFTRIAXONE 1G VIAL IVP ONE (01:30)
[2022-05-30] MEDS ORDERED: LACTULOSE 20 GM/30 ML UDCUP PO ONE (01:30)
[2022-05-30] MEDS ORDERED: GLUCAGON 1MG KIT 1 MG ML IM PRN (03:00)
[2022-05-30] MEDS ORDERED: HYDRALAZINE 20MG/ML VIAL IV PRN (03:00)
[2022-05-30] MEDS ORDERED: ONDANSETRON 4MG INJ IVP PRN (03:00)
[2022-05-30] MEDS ORDERED: ACETAMINOPHEN 325 MG TAB PO PRN (03:00)
[2022-05-30] MEDS ORDERED: ALBUTEROL 0.083% 2.5 MG/3 ML INH IH PRN (03:00)
[2022-05-30] MEDS ORDERED: DOCUSATE SODIUM 100 MG CAP PO PRN (03:00)
[2022-05-30] MEDS ORDERED: POTASSIUM CHLORIDE 10MEQ/100ML 100 ML IV PRN (03:00)
[2022-05-30] MEDS ORDERED: MAGNESIUM 2GM PREMIX 50ML 50 ML IV PRN (03:00)
[2022-05-30] MEDS ORDERED: DEXTROSE 50%-WATER 50 ML DISP.SYRIN IV PRN (03:00)
[2022-05-30] MEDS ORDERED: POTASSIUM CHLORIDE 10% ELIXIR 20 MEQ/15 ML UDCUP PO PRN (03:00)
[2022-05-30] MEDS ORDERED: CLONIDINE HCL 0.1 MG TABLET PO PRN (03:00)
[2022-05-30 03:26] LABS: AMPHET/METH SCREEN,URINE NEGATIVE (NEGATIVE); BARBITURATE SCREEN, URINE NEGATIVE (NEGATIVE); BENZODIAZEPINES SCREEN,URINE NEGATIVE (NEGATIVE); CANNABINOID SCREEN,URINE NEGATIVE (NEGATIVE); COCAINE SCREEN,URINE NEGATIVE (NEGATIVE); OPIATE SCREEN,URINE NEGATIVE (NEGATIVE); PHENCYCLIDINE SCREEN,URINE NEGATIVE (NEGATIVE)
[2022-05-30 03:33] LABS: ABG BASE EXCESS -6.7 mmol/L (-2.0-3.0); ABG HCO3 16.5 mmol/L (21.0-28.0); ABG OXYGEN SATURATION 97.3 % (95.0-99.0); ABG PCO2 28 mmHg (35-48)
[2022-05-30] MEDS: 0.9%NACL 1000ML 1,000 ML IV SCH ×3 (05:20→23:00)
[2022-05-30 05:40] VITALS: BP 132/82
[2022-05-30 07:26] LABS: BASOPHILS % (AUTO) 0.5 % (0.0-5.0); EOSINOPHILS % (AUTO) 4.3 % (0.0-8.0); HEMATOCRIT 34.4 % (42-54); LYMPHOCYTES % (AUTO) 8.8 % (21.0-51.0); MEAN CORPUSCULAR HEMOGLOBIN 33.6 pg (27.0-33.0); MEAN CORPUSCULAR VOLUME 98.9 fL (79-99); MONOCYTES % (AUTO) 9.8 % (3.0-13.0); NEUTROPHILS % (AUTO) 76.4 % (40.0-77.0); PLATELET COUNT (AUTO) 55 K/uL (130-400); RED BLOOD CELL COUNT(AUTO) 3.48 MIL/uL (4.50-6.20); RED CELL DISTRIBUTION WIDTH 13.3 % (11.0-15.5); WHITE BLOOD COUNT (AUTO) 4.2 K/uL (4.8-10.8)
[2022-05-30 07:30] VITALS: BP 124/77
[2022-05-30] MEDS: INSULIN HUMULIN R 100 UNIT/ML 3ML SQ SCH ×4 (07:30→20:18)
[2022-05-30 07:51] LABS: ALBUMIN 2.4 g/dL (3.5-5.0); POTASSIUM 3.6 mmol/L (3.5-5.1); TOTAL PROTEIN, SERUM 6.4 g/dL (6.0-8.3)
[2022-05-30] MEDS ORDERED: CEFTRIAXONE 1G VIAL IVP SCH ×2 (09:00→12:00)
[2022-05-30] MEDS: TAMSULOSIN HCL 0.4 MG CAP.ER.24H PO SCH (09:22)
[2022-05-30] MEDS: SPIRONOLACTONE 25 MG TAB PO SCH ×2 (09:23→20:18)
[2022-05-30] MEDS: FUROSEMIDE 40 MG TABLET PO SCH ×2 (09:23→20:17)
[2022-05-30] MEDS: RIFAXIMIN 550 MG TABLET PO SCH ×2 (09:23→20:18)
[2022-05-30] MEDS: FAMOTIDINE 20MG TAB PO SCH ×2 (09:23→20:17)
[2022-05-30] MEDS: LACTULOSE 20 GM/30 ML UDCUP PO SCH ×2 (09:23→20:18)
[2022-05-30 11:00] VITALS: BP 119/69
[2022-05-30 16:00] VITALS: BP 119/68
[2022-05-30] MEDS ORDERED: ZOSYN 3.375GM+NS 50ML 50 ML IVPB ONE (16:54)
[2022-05-30] MEDS ORDERED: 0.9%NACL 50ML IV SCH (17:00)
[2022-05-30] MEDS: ZOSYN 3.375GM +NS 50ML IVPB SCH (17:00)
[2022-05-30 20:00] VITALS: BP 124/76
[2022-05-30] MEDS ORDERED: TRAZODONE HCL 50 MG TAB PO SCH (21:00)
[2022-05-31] VITALS: BP 116/65
[2022-05-31] MEDS: ZOSYN 3.375GM +NS 50ML IVPB SCH ×2 (01:18→08:57)
[2022-05-31] MEDS: 0.9%NACL 1000ML 1,000 ML IV SCH (01:18)
[2022-05-31 04:00] VITALS: BP 119/73
[2022-05-31 05:17] LABS: BASOPHILS % (AUTO) 0.6 % (0.0-5.0); HEMATOCRIT 31.9 % (42-54); LYMPHOCYTES % (AUTO) 17.4 % (21.0-51.0); MEAN CORPUSCULAR HEMOGLOBIN 33.7 pg (27.0-33.0); MEAN CORPUSCULAR HGB CONC 34.8 g/dL (32.0-36.0); MONOCYTES % (AUTO) 12.8 % (3.0-13.0); NEUTROPHILS % (AUTO) 64.9 % (40.0-77.0); PLATELET COUNT (AUTO) 56 K/uL (130-400); RED BLOOD CELL COUNT(AUTO) 3.29 MIL/uL (4.50-6.20); RED CELL DISTRIBUTION WIDTH 13.2 % (11.0-15.5); WHITE BLOOD COUNT (AUTO) 3.5 K/uL (4.8-10.8)
[2022-05-31 05:28] LABS: CREATININE 1.1 mg/dL (0.5-1.5); MAGNESIUM 1.6 mg/dL (1.80-2.40); PHOSPHORUS 3.3 mg/dL (2.5-4.9); POTASSIUM 3.4 mmol/L (3.5-5.1)
[2022-05-31] MEDS: KCL 20 MEQ ERTAB PO PRN ×2 (05:56→15:26)
[2022-05-31] MEDS: INSULIN HUMULIN R 100 UNIT/ML 3ML SQ SCH ×2 (07:30→11:30)
[2022-05-31 08:10] VITALS: BP 124/72
[2022-05-31] MEDS: TAMSULOSIN HCL 0.4 MG CAP.ER.24H PO SCH (08:57)
[2022-05-31] MEDS: LACTULOSE 20 GM/30 ML UDCUP PO SCH (08:57)
[2022-05-31] MEDS: SPIRONOLACTONE 25 MG TAB PO SCH (08:57)
[2022-05-31] MEDS: RIFAXIMIN 550 MG TABLET PO SCH (08:58)
[2022-05-31] MEDS: FUROSEMIDE 40 MG TABLET PO SCH (08:58)
[2022-05-31] MEDS: FAMOTIDINE 20MG TAB PO SCH (08:58)
[2022-05-31 11:15] VITALS: BP 130/85
[2022-05-31] MEDS ORDERED: LEVO750T39 PO (15:35)
[2022-05-31 16:00] VITALS: BP 133/79
== END 2022-05-31 17:05 | disposition home or self-care (01) ==
LOC: EDH 21:17 → EDHIP 05-30 02:44 → 4BH 05-30 05:40
PROVIDERS: ADMIT Internal Medicine Critical Care Medicine; ATTEND Internal Medicine Critical Care Medicine
DX: K76.82 Hepatic encephalopathy (principal); N39.0 Urinary tract infection, site not specified; I12.9 Hypertensive chronic kidney disease with stage 1 through stage 4 chronic kidney disease, or unspecified chronic kidney disease; N18.30 Chronic kidney disease, stage 3 unspecified; E87.1 Hypo-osmolality and hyponatremia; K74.60 Unspecified cirrhosis of liver; D69.6 Thrombocytopenia, unspecified; K76.0 Fatty (change of) liver, not elsewhere classified; N40.0 Benign prostatic hyperplasia without lower urinary tract symptoms; Z87.442 Personal history of urinary calculi; Z79.899 Other long term (current) drug therapy
CPT/HCPCS: 84484; 80053 ×2; 83880; 82140 ×2; 85025 ×3; 85610; 85730; 87040 ×4; 87088; 83605; 81001; 36415 ×3; 71045; 93005; 96376; 96361; 96365; 96366 ×2; 96375; 99285; 84295 ×5; 84300; 82803; 80305; 87046; 82948 ×5; 83930; 83935; 87177; 87324; 82270; 74176; 36600; 94664; 83630; 96367; 83735; 84100; 80048; G0378 ×38; J0696 ×3; J2543 ×2; J3475

== ENCOUNTER 2022-12-01 09:56 | Emergency (ER) | payer BC ==
[~2022-12-01] VITALS: Ht 175.3 cm; Wt 112.0 kg
[~2022-12-01 09:56] MED LIST changes: +CEPH500B PO; -LEVO-70 PO
[2022-12-01] MEDS ORDERED: ONDANSETRON 4MG INJ ONE (10:29)
[2022-12-01 10:35] LABS: BASOPHILS # (AUTO) 0.03 K/uL (0.00-0.20); BASOPHILS % (AUTO) 0.9 % (0.0-5.0); EOSINOPHILS # (AUTO) 0.15 K/uL (0.00-0.70); EOSINOPHILS % (AUTO) 4.5 % (0.0-8.0); HEMATOCRIT 34.3 % (42-54); IMMATURE GRANULOCYTE ABSOLUTE 0.01 K/uL (0-1); LYMPHOCYTES # (AUTO) 0.5 K/uL (1.0-4.8); LYMPHOCYTES % (AUTO) 16.1 % (21.0-51.0); MEAN CORPUSCULAR HEMOGLOBIN 34.5 pg (27.0-33.0); MEAN CORPUSCULAR VOLUME 98.6 fL (79-99); MONOCYTES # (AUTO) 0.3 K/uL (0.1-1.0); MONOCYTES % (AUTO) 8.9 % (3.0-13.0); NEUTROPHILS # (AUTO) 2.3 K/uL (1.8-7.7); NEUTROPHILS % (AUTO) 69.3 % (40.0-77.0); PLATELET COUNT (AUTO) 63 K/uL (130-400); RED BLOOD CELL COUNT(AUTO) 3.48 MIL/uL (4.50-6.20); RED CELL DISTRIBUTION WIDTH 14.3 % (11.0-15.5); WHITE BLOOD COUNT (AUTO) 3.4 K/uL (4.8-10.8)
[2022-12-01 10:43] LABS: CREATININE 0.7 mg/dL (0.5-1.5); POTASSIUM 3.7 mmol/L (3.5-5.1)
[2022-12-01 10:48] LABS: INR 1.27 (0.85-1.15); PROTHROMBIN TIME 14.5 SEC (9.6-11.6)
[2022-12-01 10:50] LABS: PARTIAL THROMBOPLASTIN TIME 34.9 SEC (26.3-35.5)
[2022-12-01] MEDS ORDERED: MORPHINE 2 MG SYG IVP ONE (11:30)
[2022-12-01] MEDS ORDERED: ALBUMIN (HUMAN) 25% 200 ML IV ONE (12:22)
[2022-12-01] MEDS ORDERED: SODIUM BICARB 50MEQ 50ML VIAL 50 ML ONE (12:23)
[2022-12-01 12:56] VITALS: BP 138/74; PULSE 72; RESP 18; O2SAT 99
== END 2022-12-01 14:09 | disposition home or self-care (01) ==
LOC: EDH 09:56
DX: R18.8 Other ascites (principal); K74.60 Unspecified cirrhosis of liver; Z79.899 Other long term (current) drug therapy; Z90.49 Acquired absence of other specified parts of digestive tract
CPT/HCPCS: 49083; 99285; 96365; 96375 ×2; 80048; 85025; 85610; 85730; 36415; P9046; J2270; J3490; J2405; C1729

== ENCOUNTER 2023-01-05 10:46 | Emergency (ER) | payer MEDICARE, BC ==
[~2023-01-05] VITALS: Ht 175.3 cm; Wt 112.0 kg
[2023-01-05] MEDS ORDERED: MORPHINE 2 MG SYG IVP ONE (13:30)
[2023-01-05] MEDS ORDERED: ONDANSETRON 4MG INJ IVP ONE (13:30)
[2023-01-05 14:53] LABS: BASOPHILS # (AUTO) 0.02 K/uL (0.00-0.20); BASOPHILS % (AUTO) 0.6 % (0.0-5.0); EOSINOPHILS # (AUTO) 0.16 K/uL (0.00-0.70); EOSINOPHILS % (AUTO) 4.5 % (0.0-8.0); IMMATURE GRANULOCYTE ABSOLUTE 0.01 K/uL (0-1); LYMPHOCYTES # (AUTO) 0.7 K/uL (1.0-4.8); LYMPHOCYTES % (AUTO) 20.6 % (21.0-51.0); MEAN CORPUSCULAR HEMOGLOBIN 35.3 pg (27.0-33.0); MEAN CORPUSCULAR HGB CONC 34.7 g/dL (32.0-36.0); MEAN CORPUSCULAR VOLUME 101.7 fL (79-99); MONOCYTES # (AUTO) 0.3 K/uL (0.1-1.0); MONOCYTES % (AUTO) 8.5 % (3.0-13.0); NEUTROPHILS # (AUTO) 2.3 K/uL (1.8-7.7); NEUTROPHILS % (AUTO) 65.5 % (40.0-77.0); PLATELET COUNT (AUTO) 74 K/uL (130-400); RED BLOOD CELL COUNT(AUTO) 3.54 MIL/uL (4.50-6.20); RED CELL DISTRIBUTION WIDTH 14.1 % (11.0-15.5); WHITE BLOOD COUNT (AUTO) 3.6 K/uL (4.8-10.8)
[2023-01-05 15:02] LABS: INR 1.21 (0.85-1.15); PROTHROMBIN TIME 13.9 SEC (9.6-11.6)
[2023-01-05 15:04] LABS: PARTIAL THROMBOPLASTIN TIME 33.7 SEC (26.3-35.5)
[2023-01-05] MEDS ORDERED: SODIUM BICARB 50MEQ 50ML VIAL 50 ML ONE (15:12)
[2023-01-05] MEDS ORDERED: ALBUMIN (HUMAN) 25% 300 ML IV ONE (15:13)
[2023-01-05 15:23] LABS: CREATININE 0.7 mg/dL (0.5-1.5); POTASSIUM 4.2 mmol/L (3.5-5.1)
[2023-01-05 15:27] LABS: ALBUMIN 2.5 g/dL (3.5-5.0); BILIRUBIN,TOTAL 3.9 mg/dL (0.2-1.0); TOTAL PROTEIN, SERUM 7.6 g/dL (6.0-8.3)
[2023-01-05 17:42] VITALS: BP 136/59; PULSE 81; RESP 20; O2SAT 98
== END 2023-01-05 18:07 | disposition home or self-care (01) ==
LOC: EDH 10:46
DX: K74.60 Unspecified cirrhosis of liver (principal); R18.8 Other ascites; Z79.899 Other long term (current) drug therapy; Z90.49 Acquired absence of other specified parts of digestive tract; Z98.890 Other specified postprocedural states
CPT/HCPCS: 49083; 99285; 96365; 96375 ×2; 80053; 82140; 85025; 85610; 85730; 36415; P9046; J2270; J3490; J2405; C1729

== ENCOUNTER 2023-01-14 09:45 | Emergency (ER) | payer BC, MEDICARE ==
[~2023-01-14] VITALS: Ht 175.3 cm; Wt 108.9 kg
[2023-01-14 10:59] LABS: BASOPHILS # (AUTO) 0.03 K/uL (0.00-0.20); BASOPHILS % (AUTO) 0.7 % (0.0-5.0); EOSINOPHILS # (AUTO) 0.17 K/uL (0.00-0.70); EOSINOPHILS % (AUTO) 4.1 % (0.0-8.0); HEMATOCRIT 34.1 % (42-54); IMMATURE GRANULOCYTE ABSOLUTE 0.01 K/uL (0-1); LYMPHOCYTES # (AUTO) 0.6 K/uL (1.0-4.8); LYMPHOCYTES % (AUTO) 15.1 % (21.0-51.0); MEAN CORPUSCULAR HEMOGLOBIN 35.3 pg (27.0-33.0); MEAN CORPUSCULAR HGB CONC 35.2 g/dL (32.0-36.0); MEAN CORPUSCULAR VOLUME 100.3 fL (79-99); MONOCYTES # (AUTO) 0.4 K/uL (0.1-1.0); MONOCYTES % (AUTO) 9.6 % (3.0-13.0); NEUTROPHILS # (AUTO) 2.9 K/uL (1.8-7.7); NEUTROPHILS % (AUTO) 70.3 % (40.0-77.0); PLATELET COUNT (AUTO) 76 K/uL (130-400); RED CELL DISTRIBUTION WIDTH 13.9 % (11.0-15.5); WHITE BLOOD COUNT (AUTO) 4.2 K/uL (4.8-10.8)
[2023-01-14 11:11] LABS: CREATININE 0.7 mg/dL (0.5-1.5)
[2023-01-14 11:15] LABS: ALBUMIN 2.5 g/dL (3.5-5.0); BILIRUBIN,TOTAL 3.8 mg/dL (0.2-1.0); TOTAL PROTEIN, SERUM 7.2 g/dL (6.0-8.3)
[2023-01-14 11:24] LABS: INR 1.32 (0.85-1.15)
[2023-01-14 11:25] LABS: PARTIAL THROMBOPLASTIN TIME 37.3 SEC (26.3-35.5)
[2023-01-14] MEDS ORDERED: ALBUMIN (HUMAN) 25% 200 ML IV SCH (14:00)
[2023-01-14 15:05] VITALS: BP 118/80; PULSE 70; RESP 20; O2SAT 98
== END 2023-01-14 15:10 | disposition home or self-care (01) ==
LOC: EDH 09:45
DX: R18.8 Other ascites (principal); K74.60 Unspecified cirrhosis of liver; Z79.899 Other long term (current) drug therapy; Z90.49 Acquired absence of other specified parts of digestive tract
CPT/HCPCS: 49083; 99285; 96365; 80053; 85025; 85610; 85730; 36415; P9046; C1729

== ENCOUNTER 2023-01-29 11:01 | Emergency (ER) | payer BC, MEDICARE ==
[~2023-01-29] VITALS: Ht 175.3 cm; Wt 104.3 kg
[2023-01-29] MEDS ORDERED: ONDANSETRON 4MG INJ IVP ONE (11:30)
[2023-01-29 11:32] VITALS: BP 141/83; PULSE 70; RESP 16; O2SAT 99
[2023-01-29 11:37] LABS: BASOPHILS # (AUTO) 0.03 K/uL (0.00-0.20); BASOPHILS % (AUTO) 0.8 % (0.0-5.0); EOSINOPHILS # (AUTO) 0.18 K/uL (0.00-0.70); EOSINOPHILS % (AUTO) 4.8 % (0.0-8.0); HEMATOCRIT 33.5 % (42-54); IMMATURE GRANULOCYTE ABSOLUTE 0.02 K/uL (0-1); LYMPHOCYTES # (AUTO) 0.6 K/uL (1.0-4.8); LYMPHOCYTES % (AUTO) 16.6 % (21.0-51.0); MEAN CORPUSCULAR HEMOGLOBIN 35.5 pg (27.0-33.0); MEAN CORPUSCULAR HGB CONC 35.2 g/dL (32.0-36.0); MEAN CORPUSCULAR VOLUME 100.9 fL (79-99); MONOCYTES # (AUTO) 0.3 K/uL (0.1-1.0); MONOCYTES % (AUTO) 7.5 % (3.0-13.0); NEUTROPHILS # (AUTO) 2.6 K/uL (1.8-7.7); NEUTROPHILS % (AUTO) 69.8 % (40.0-77.0); PLATELET COUNT (AUTO) 84 K/uL (130-400); RED BLOOD CELL COUNT(AUTO) 3.32 MIL/uL (4.50-6.20); WHITE BLOOD COUNT (AUTO) 3.7 K/uL (4.8-10.8)
[2023-01-29 11:46] LABS: CREATININE 0.9 mg/dL (0.5-1.5); POTASSIUM 3.6 mmol/L (3.5-5.1)
[2023-01-29 11:50] LABS: ALBUMIN 2.6 g/dL (3.5-5.0); BILIRUBIN,DIRECT 0.8 mg/dL (0.0-0.3); BILIRUBIN,TOTAL 3.6 mg/dL (0.2-1.0); TOTAL PROTEIN, SERUM 7.3 g/dL (6.0-8.3)
== END 2023-01-29 12:31 | disposition home or self-care (01) ==
LOC: EDH 11:01
DX: K74.60 Unspecified cirrhosis of liver (principal); R18.8 Other ascites; Z79.899 Other long term (current) drug therapy; Z90.49 Acquired absence of other specified parts of digestive tract
CPT/HCPCS: 99284; 96374; 82248; 80053; 82140; 83690; 85025; 36415; J2405

== ENCOUNTER 2023-02-01 09:04 | Emergency (ER) | payer BC, MEDICARE ==
[~2023-02-01] VITALS: Ht 175.3 cm; Wt 108.9 kg
[2023-02-01 11:01] LABS: BASOPHILS # (AUTO) 0.03 K/uL (0.00-0.20); BASOPHILS % (AUTO) 0.9 % (0.0-5.0); EOSINOPHILS # (AUTO) 0.16 K/uL (0.00-0.70); EOSINOPHILS % (AUTO) 4.7 % (0.0-8.0); IMMATURE GRANULOCYTE ABSOLUTE 0.02 K/uL (0-1); LYMPHOCYTES # (AUTO) 0.6 K/uL (1.0-4.8); LYMPHOCYTES % (AUTO) 16.9 % (21.0-51.0); MEAN CORPUSCULAR HEMOGLOBIN 34.8 pg (27.0-33.0); MEAN CORPUSCULAR HGB CONC 34.2 g/dL (32.0-36.0); MEAN CORPUSCULAR VOLUME 101.5 fL (79-99); MONOCYTES # (AUTO) 0.3 K/uL (0.1-1.0); MONOCYTES % (AUTO) 8.7 % (3.0-13.0); NEUTROPHILS # (AUTO) 2.4 K/uL (1.8-7.7); NEUTROPHILS % (AUTO) 68.2 % (40.0-77.0); PLATELET COUNT (AUTO) 81 K/uL (130-400); RED BLOOD CELL COUNT(AUTO) 3.25 MIL/uL (4.50-6.20); RED CELL DISTRIBUTION WIDTH 13.8 % (11.0-15.5); WHITE BLOOD COUNT (AUTO) 3.4 K/uL (4.8-10.8)
[2023-02-01 11:08] LABS: CREATININE 0.7 mg/dL (0.5-1.5); POTASSIUM 4.1 mmol/L (3.5-5.1)
[2023-02-01 11:12] LABS: ALBUMIN 2.6 g/dL (3.5-5.0); BILIRUBIN,TOTAL 4.2 mg/dL (0.2-1.0); TOTAL PROTEIN, SERUM 7.1 g/dL (6.0-8.3)
[2023-02-01 12:16] LABS: INR 1.29 (0.85-1.15); PROTHROMBIN TIME 14.7 SEC (9.6-11.6)
[2023-02-01] MEDS ORDERED: ALBUMIN (HUMAN) 25% 200 ML IV SCH (12:20)
[2023-02-01] MEDS ORDERED: SODIUM BICARB 50MEQ 50ML VIAL 50 ML ONE (12:59)
[2023-02-01] MEDS ORDERED: ONDA22I PO ×2 (13:50→13:54)
[2023-02-01 13:51] VITALS: BP 115/71; PULSE 65; RESP 20; O2SAT 100
== END 2023-02-01 14:34 | disposition home or self-care (01) ==
LOC: EDH 09:04
DX: R18.8 Other ascites (principal); K74.60 Unspecified cirrhosis of liver; Z79.899 Other long term (current) drug therapy; Z90.49 Acquired absence of other specified parts of digestive tract
CPT/HCPCS: 49083; 99285; 96365; 80053; 85025; 85610; 36415; P9046 ×2; J3490; C1729

== ENCOUNTER 2023-03-08 08:40 | Emergency (ER) | payer MEDICARE ==
[~2023-03-08] VITALS: Ht 175.3 cm; Wt 103.0 kg
[~2023-03-08 08:40] MED LIST changes: -CEPH500B PO; +ONDA22I PO
[2023-03-08 09:35] LABS: BASOPHILS # (AUTO) 0.02 K/uL (0.00-0.20); BASOPHILS % (AUTO) 0.6 % (0.0-5.0); EOSINOPHILS # (AUTO) 0.15 K/uL (0.00-0.70); EOSINOPHILS % (AUTO) 4.6 % (0.0-8.0); HEMATOCRIT 30.4 % (42-54); IMMATURE GRANULOCYTE ABSOLUTE 0.01 K/uL (0-1); LYMPHOCYTES # (AUTO) 0.7 K/uL (1.0-4.8); MEAN CORPUSCULAR HEMOGLOBIN 34.6 pg (27.0-33.0); MEAN CORPUSCULAR HGB CONC 34.2 g/dL (32.0-36.0); MONOCYTES # (AUTO) 0.3 K/uL (0.1-1.0); MONOCYTES % (AUTO) 9.5 % (3.0-13.0); NEUTROPHILS # (AUTO) 2.1 K/uL (1.8-7.7); PLATELET COUNT (AUTO) 68 K/uL (130-400); RED BLOOD CELL COUNT(AUTO) 3.01 MIL/uL (4.50-6.20); RED CELL DISTRIBUTION WIDTH 13.9 % (11.0-15.5); WHITE BLOOD COUNT (AUTO) 3.3 K/uL (4.8-10.8)
[2023-03-08 09:43] LABS: CREATININE 0.7 mg/dL (0.5-1.5); POTASSIUM 4.4 mmol/L (3.5-5.1)
[2023-03-08 09:47] LABS: ALBUMIN 2.3 g/dL (3.5-5.0); TOTAL PROTEIN, SERUM 6.6 g/dL (6.0-8.3)
[2023-03-08 10:05] LABS: INR 1.29 (0.85-1.15); PROTHROMBIN TIME 14.7 SEC (9.6-11.6)
[2023-03-08 10:06] LABS: PARTIAL THROMBOPLASTIN TIME 34.4 SEC (26.3-35.5)
[2023-03-08] MEDS ORDERED: ALBUMIN (HUMAN) 25% 200 ML IV ONE (10:26)
[2023-03-08] MEDS ORDERED: SODIUM BICARB 50MEQ 50ML VIAL 50 ML ONE (10:26)
[2023-03-08 12:54] VITALS: BP 133/68; PULSE 81; RESP 18; O2SAT 98
== END 2023-03-08 12:55 | disposition home or self-care (01) ==
LOC: EDH 08:40
DX: E87.70 Fluid overload, unspecified (principal); K74.60 Unspecified cirrhosis of liver; R18.8 Other ascites; Z79.899 Other long term (current) drug therapy; Z98.890 Other specified postprocedural states; Z90.49 Acquired absence of other specified parts of digestive tract
CPT/HCPCS: 49083; 99285; 96365; 71045; 80053; 85025; 85610; 85730; 36415; P9046; J3490; C1729

== ENCOUNTER 2023-03-18 06:48 | Emergency (ER) | payer MEDICARE ==
[~2023-03-18] VITALS: Ht 175.3 cm; Wt 98.9 kg
[2023-03-18 07:45] LABS: BASOPHILS # (AUTO) 0.03 K/uL (0.00-0.20); BASOPHILS % (AUTO) 0.7 % (0.0-5.0); EOSINOPHILS # (AUTO) 0.24 K/uL (0.00-0.70); EOSINOPHILS % (AUTO) 5.7 % (0.0-8.0); HEMATOCRIT 30.3 % (42-54); IMMATURE GRANULOCYTE ABSOLUTE 0.03 K/uL (0-1); LYMPHOCYTES # (AUTO) 0.8 K/uL (1.0-4.8); LYMPHOCYTES % (AUTO) 17.9 % (21.0-51.0); MEAN CORPUSCULAR HEMOGLOBIN 34.5 pg (27.0-33.0); MEAN CORPUSCULAR HGB CONC 35.3 g/dL (32.0-36.0); MEAN CORPUSCULAR VOLUME 97.7 fL (79-99); MONOCYTES # (AUTO) 0.4 K/uL (0.1-1.0); MONOCYTES % (AUTO) 9.8 % (3.0-13.0); NEUTROPHILS # (AUTO) 2.7 K/uL (1.8-7.7); NEUTROPHILS % (AUTO) 65.2 % (40.0-77.0); PLATELET COUNT (AUTO) 77 K/uL (130-400); RED CELL DISTRIBUTION WIDTH 13.3 % (11.0-15.5); WHITE BLOOD COUNT (AUTO) 4.2 K/uL (4.8-10.8)
[2023-03-18 07:59] LABS: ALBUMIN 2.4 g/dL (3.5-5.0); BILIRUBIN,TOTAL 3.4 mg/dL (0.2-1.0); CREATININE 0.9 mg/dL (0.5-1.5); MAGNESIUM 1.8 mg/dL (1.80-2.40); POTASSIUM 3.6 mmol/L (3.5-5.1); TOTAL PROTEIN, SERUM 6.4 g/dL (6.0-8.3)
[2023-03-18 08:01] LABS: B-TYPE NATRIURETIC PEPTIDE 38 pg/mL (0-100)
[2023-03-18] MEDS: ALBUMIN (HUMAN) 25% 200 ML IV SCH (13:23)
[2023-03-18 15:54] VITALS: BP 115/64; PULSE 70; RESP 18; O2SAT 99
== END 2023-03-18 16:12 | disposition home or self-care (01) ==
LOC: EDH 06:48
DX: K74.60 Unspecified cirrhosis of liver (principal); R18.8 Other ascites; I10 Essential (primary) hypertension; Z79.899 Other long term (current) drug therapy; Z90.49 Acquired absence of other specified parts of digestive tract; Z98.890 Other specified postprocedural states
CPT/HCPCS: 49083; 99285; 74176; 96365; 71045; 82550; 83735; 84484; 80053; 83880; 82140; 85025; 36415; 93005; P9046; C1729

== ENCOUNTER 2023-04-01 13:11 | Emergency (ER) | payer MEDICARE ==
[~2023-04-01] VITALS: Ht 175.3 cm; Wt 99.8 kg
[~2023-04-01 13:11] MED LIST changes: +FURO20TA6 PO; -FURO40TA5 PO; +LACT PO; -LACT10SO9 PO
[2023-04-01] MEDS: ALBUMIN (HUMAN) 25% 200 ML IV ONE (13:59)
[2023-04-01 16:05] VITALS: BP 144/63; PULSE 79; RESP 18; O2SAT 100
== END 2023-04-01 16:14 | disposition home or self-care (01) ==
LOC: EDH 13:11
DX: K70.31 Alcoholic cirrhosis of liver with ascites (principal); I10 Essential (primary) hypertension; Z79.899 Other long term (current) drug therapy; Z90.49 Acquired absence of other specified parts of digestive tract
CPT/HCPCS: 99285; 49083; 96365; P9046; C1729

== ENCOUNTER → 2023-04-19 | Outpatient (CLI) | payer MEDICARE ==
[2023-04-19] MEDS: ALBUMIN (HUMAN) 25% 200 ML IV SCH (08:54)
== END | disposition home or self-care (01) ==
LOC: RAH 08:03
PROVIDERS: ATTEND Internal Medicine Hepatology
DX: R18.8 Other ascites (principal); K74.69 Other cirrhosis of liver; I85.10 Secondary esophageal varices without bleeding; D61.818 Other pancytopenia; I10 Essential (primary) hypertension; E78.5 Hyperlipidemia, unspecified; E66.9 Obesity, unspecified; K21.9 Gastro-esophageal reflux disease without esophagitis; Z79.01 Long term (current) use of anticoagulants; Z98.890 Other specified postprocedural states; Z90.49 Acquired absence of other specified parts of digestive tract; Z68.31 Body mass index [BMI] 31.0-31.9, adult
CPT/HCPCS: 49083; P9046; C1729; 96365

== ENCOUNTER → 2023-04-25 | Outpatient (CLI) | payer MEDICARE ==
[2023-04-25] MEDS: ALBUMIN (HUMAN) 25% 200 ML IV SCH (10:06)
== END | disposition home or self-care (01) ==
LOC: RAH 09:16
PROVIDERS: ATTEND Internal Medicine Hepatology
DX: R18.8 Other ascites (principal); K74.69 Other cirrhosis of liver; I10 Essential (primary) hypertension; E78.5 Hyperlipidemia, unspecified; E66.9 Obesity, unspecified; G93.40 Encephalopathy, unspecified; Z90.49 Acquired absence of other specified parts of digestive tract; Z98.890 Other specified postprocedural states; Z88.6 Allergy status to analgesic agent; Z68.31 Body mass index [BMI] 31.0-31.9, adult; Z79.899 Other long term (current) drug therapy
CPT/HCPCS: 49083; C1729; 96365

== ENCOUNTER → 2023-05-02 | Outpatient (CLI) | payer MEDICARE ==
[~2023-05-02] MED LIST changes: +ALBUMIN (HUMAN) 25% 200 ML IV SCH
== END | disposition home or self-care (01) ==
LOC: RAH 09:09
PROVIDERS: ATTEND Internal Medicine Hepatology
DX: R18.8 Other ascites (principal); K74.60 Unspecified cirrhosis of liver; K76.6 Portal hypertension; I85.10 Secondary esophageal varices without bleeding; D61.818 Other pancytopenia
CPT/HCPCS: 49083; P9046; C1729

== ENCOUNTER 2023-05-06 07:58 | Emergency (ER) | payer MEDICARE ==
[~2023-05-06] VITALS: Ht 175.3 cm; Wt 99.8 kg
[~2023-05-06 07:58] MED LIST changes: -ALBUMIN (HUMAN) 25% 200 ML IV SCH
[2023-05-06 08:19] LABS: BASOPHILS # (AUTO) 0.03 K/uL (0.00-0.20); BASOPHILS % (AUTO) 0.8 % (0.0-5.0); EOSINOPHILS # (AUTO) 0.17 K/uL (0.00-0.70); EOSINOPHILS % (AUTO) 4.3 % (0.0-8.0); HEMATOCRIT 28.9 % (42-54); IMMATURE GRANULOCYTE ABSOLUTE 0.02 K/uL (0-1); LYMPHOCYTES # (AUTO) 0.7 K/uL (1.0-4.8); MEAN CORPUSCULAR HEMOGLOBIN 34.9 pg (27.0-33.0); MEAN CORPUSCULAR HGB CONC 34.9 g/dL (32.0-36.0); MONOCYTES # (AUTO) 0.4 K/uL (0.1-1.0); NEUTROPHILS # (AUTO) 2.7 K/uL (1.8-7.7); NEUTROPHILS % (AUTO) 68.4 % (40.0-77.0); PLATELET COUNT (AUTO) 64 K/uL (130-400); RED BLOOD CELL COUNT(AUTO) 2.89 MIL/uL (4.50-6.20); RED CELL DISTRIBUTION WIDTH 13.1 % (11.0-15.5)
[2023-05-06 08:29] LABS: INR 1.23 (0.85-1.15); PROTHROMBIN TIME 14.3 SEC (9.6-11.6)
[2023-05-06 08:31] LABS: PARTIAL THROMBOPLASTIN TIME 35.5 SEC (26.3-35.5)
[2023-05-06 08:40] LABS: BILIRUBIN,TOTAL 2.9 mg/dL (0.2-1.0); CREATININE 0.8 mg/dL (0.5-1.3); POTASSIUM 3.8 mmol/L (3.5-5.1); TOTAL PROTEIN, SERUM 6.5 g/dL (6.0-8.3)
[2023-05-06] MEDS: ALBUMIN (HUMAN) 25% 200 ML IV ONE (08:53)
[2023-05-06 09:23] VITALS: BP 114/68; PULSE 67; RESP 20; O2SAT 99
== END 2023-05-06 09:55 | disposition home or self-care (01) ==
LOC: EDH 07:58
DX: R18.8 Other ascites (principal); K74.60 Unspecified cirrhosis of liver; M79.89 Other specified soft tissue disorders; Z90.49 Acquired absence of other specified parts of digestive tract; Z79.899 Other long term (current) drug therapy; Z98.890 Other specified postprocedural states
CPT/HCPCS: 49083; 99285; 96365; 80053; 85025; 85610; 85730; 36415; P9046; C1729

== ENCOUNTER → 2023-05-09 | Outpatient (CLI) | payer MEDICARE ==
[2023-05-09] MEDS: ALBUMIN (HUMAN) 25% 200 ML IV SCH (10:49)
== END | disposition home or self-care (01) ==
LOC: RAH 09:37
PROVIDERS: ATTEND Internal Medicine Hepatology
DX: R18.8 Other ascites (principal); K74.69 Other cirrhosis of liver; I10 Essential (primary) hypertension; E78.5 Hyperlipidemia, unspecified; E66.9 Obesity, unspecified; G93.40 Encephalopathy, unspecified; Z79.01 Long term (current) use of anticoagulants; Z79.899 Other long term (current) drug therapy; Z90.49 Acquired absence of other specified parts of digestive tract; Z98.890 Other specified postprocedural states; Z88.6 Allergy status to analgesic agent; Z68.31 Body mass index [BMI] 31.0-31.9, adult
CPT/HCPCS: 49083; C1729

== ENCOUNTER → 2023-05-16 | Outpatient (CLI) | payer MEDICARE ==
[2023-05-16] MEDS: ALBUMIN (HUMAN) 25% 200 ML IV SCH (10:57)
== END | disposition home or self-care (01) ==
LOC: RAH 09:06
PROVIDERS: ATTEND Internal Medicine Hepatology
DX: R18.8 Other ascites (principal); K74.69 Other cirrhosis of liver; I85.10 Secondary esophageal varices without bleeding; E66.9 Obesity, unspecified; D61.818 Other pancytopenia; Z98.890 Other specified postprocedural states; Z68.34 Body mass index [BMI] 34.0-34.9, adult; Z79.899 Other long term (current) drug therapy; Z79.01 Long term (current) use of anticoagulants
CPT/HCPCS: 49083; P9046; C1729

== ENCOUNTER 2023-06-03 08:40 | Emergency (ER) | payer MEDICARE ==
[~2023-06-03] VITALS: Ht 175.3 cm; Wt 98.9 kg
[~2023-06-03 08:40] MED LIST changes: -LACT PO; +LACT10SO9 PO
[2023-06-03 08:58] LABS: BASOPHILS # (AUTO) 0.02 K/uL (0.00-0.20); BASOPHILS % (AUTO) 0.6 % (0.0-5.0); EOSINOPHILS # (AUTO) 0.17 K/uL (0.00-0.70); EOSINOPHILS % (AUTO) 4.7 % (0.0-8.0); HEMATOCRIT 26.5 % (42-54); IMMATURE GRANULOCYTE ABSOLUTE 0.01 K/uL (0-1); LYMPHOCYTES # (AUTO) 0.6 K/uL (1.0-4.8); LYMPHOCYTES % (AUTO) 17.5 % (21.0-51.0); MEAN CORPUSCULAR HEMOGLOBIN 33.6 pg (27.0-33.0); MEAN CORPUSCULAR HGB CONC 35.1 g/dL (32.0-36.0); MEAN CORPUSCULAR VOLUME 95.7 fL (79-99); MONOCYTES # (AUTO) 0.4 K/uL (0.1-1.0); MONOCYTES % (AUTO) 10.6 % (3.0-13.0); NEUTROPHILS # (AUTO) 2.4 K/uL (1.8-7.7); NEUTROPHILS % (AUTO) 66.3 % (40.0-77.0); PLATELET COUNT (AUTO) 65 K/uL (130-400); RED BLOOD CELL COUNT(AUTO) 2.77 MIL/uL (4.50-6.20); RED CELL DISTRIBUTION WIDTH 13.4 % (11.0-15.5); WHITE BLOOD COUNT (AUTO) 3.6 K/uL (4.8-10.8)
[2023-06-03 09:09] LABS: INR 1.26 (0.85-1.15); PROTHROMBIN TIME 14.6 SEC (9.6-11.6)
[2023-06-03 09:11] LABS: PARTIAL THROMBOPLASTIN TIME 34.7 SEC (26.3-35.5)
[2023-06-03 09:12] LABS: ALBUMIN 3.1 g/dL (3.5-5.0); BILIRUBIN,TOTAL 3.4 mg/dL (0.2-1.0); POTASSIUM 3.6 mmol/L (3.5-5.1); TOTAL PROTEIN, SERUM 6.3 g/dL (6.0-8.3)
[2023-06-03] MEDS: SODIUM BICARB 50MEQ 50ML VIAL 50 ML ONE (11:08)
[2023-06-03] MEDS: ALBUMIN (HUMAN) 25% 200 ML IV ONE (11:08)
[2023-06-03 14:08] VITALS: BP 116/64; PULSE 65; RESP 18; O2SAT 98
== END 2023-06-03 14:15 | disposition home or self-care (01) ==
LOC: EDH 08:40
DX: R18.8 Other ascites (principal); K74.60 Unspecified cirrhosis of liver; Z90.49 Acquired absence of other specified parts of digestive tract; Z79.899 Other long term (current) drug therapy
CPT/HCPCS: 49083; 99285; 96365; 80053; 82140; 85025; 85610; 85730; 36415; P9046; J3490; C1729

== ENCOUNTER → 2023-06-10 | Outpatient (CLI) | payer MEDICARE ==
[~2023-06-10] MED LIST changes: +ALBUMIN (HUMAN) 25% 200 ML IV ONE
== END | disposition home or self-care (01) ==
LOC: RAH 09:39
PROVIDERS: ATTEND Internal Medicine Hepatology
DX: R18.8 Other ascites (principal); K74.69 Other cirrhosis of liver; I85.10 Secondary esophageal varices without bleeding; D61.818 Other pancytopenia; Z79.899 Other long term (current) drug therapy; Z79.01 Long term (current) use of anticoagulants
CPT/HCPCS: 49083; P9046; C1729

== ENCOUNTER 2023-06-25 21:45 | Inpatient (IN) | payer MEDICARE ==
[~2023-06-25] VITALS: Ht 175.3 cm; Wt 98.0 kg
[~2023-06-25 21:45] MED LIST changes: -ALBUMIN (HUMAN) 25% 200 ML IV ONE
[2023-06-25 22:12] LABS: BASOPHILS # (AUTO) 0.02 K/uL (0.00-0.20); BASOPHILS % (AUTO) 0.1 % (0.0-5.0); HEMATOCRIT 28.8 % (42-54); IMMATURE GRANULOCYTE ABSOLUTE 0.08 K/uL (0-1); LYMPHOCYTES # (AUTO) 0.3 K/uL (1.0-4.8); LYMPHOCYTES % (AUTO) 1.9 % (21.0-51.0); MEAN CORPUSCULAR HEMOGLOBIN 33.4 pg (27.0-33.0); MEAN CORPUSCULAR VOLUME 98.3 fL (79-99); MONOCYTES # (AUTO) 0.6 K/uL (0.1-1.0); NEUTROPHILS % (AUTO) 93.5 % (40.0-77.0); PLATELET COUNT (AUTO) 88 K/uL (130-400); RED BLOOD CELL COUNT(AUTO) 2.93 MIL/uL (4.50-6.20); WHITE BLOOD COUNT (AUTO) 14.9 K/uL (4.8-10.8)
[2023-06-25] MEDS: 0.9%NACL 1000ML 1,000 ML IV ONE (22:12)
[2023-06-25] MEDS: ONDANSETRON 4MG INJ IVP ONE (22:13)
[2023-06-25] MEDS: MORPHINE 2 MG SYG IVP ONE (22:16)
[2023-06-25] MEDS: ACETAMINOPHEN 500 MG TABLET PO ONE (22:16)
[2023-06-25 22:32] LABS: COVID19 (SARS ANTIGEN RAPID) PRESUMPTIVE NEGATIVE (NEGATIVE); INFLUENZA TYPE A Negative For Type A (NEGATIVE); INFLUENZA TYPE B Negative For Type B (NEGATIVE)
[2023-06-25 22:35] LABS: ALBUMIN 3.4 g/dL (3.5-5.0); CREATININE 1.3 mg/dL (0.5-1.3); POTASSIUM 4.3 mmol/L (3.5-5.1); TOTAL PROTEIN, SERUM 6.7 g/dL (6.0-8.3)
[2023-06-25] MEDS ORDERED: ONDANSETRON 4MG INJ IVP PRN (23:30)
[2023-06-25] MEDS ORDERED: ACETAMINOPHEN 325 MG TAB PO PRN (23:30)
[2023-06-25] MEDS: ZOSYN 3.375GM+NS 50ML 50 ML IVPB STA (23:41)
[2023-06-25] MEDS: LACTULOSE 20 GM/30 ML UDCUP PO ONE (23:42)
[2023-06-25] MEDS: 0.9%NACL 1000ML 2,121 ML IV ONE (23:42)
[2023-06-26] VITALS (8 sets, daily range): BP systolic 97–125; BP diastolic 62–68; PULSE 57–94; RESP 18–20; TEMP 100.1; O2SAT 96–98
[2023-06-26] MEDS: VANCOMYCIN 1G/250ML KIT 250 ML IV ONE (00:21)
[2023-06-26 02:30] LABS: BASOPHILS # (AUTO) 0.01 K/uL (0.00-0.20); BASOPHILS % (AUTO) 0.1 % (0.0-5.0); HEMATOCRIT 23.4 % (42-54); IMMATURE GRANULOCYTE ABSOLUTE 0.81 K/uL (0-1); LYMPHOCYTES # (AUTO) 0.2 K/uL (1.0-4.8); LYMPHOCYTES % (AUTO) 1.6 % (21.0-51.0); MEAN CORPUSCULAR HEMOGLOBIN 33.6 pg (27.0-33.0); MEAN CORPUSCULAR HGB CONC 34.6 g/dL (32.0-36.0); MEAN CORPUSCULAR VOLUME 97.1 fL (79-99); MONOCYTES # (AUTO) 0.6 K/uL (0.1-1.0); MONOCYTES % (AUTO) 5.6 % (3.0-13.0); NEUTROPHILS # (AUTO) 8.8 K/uL (1.8-7.7); NEUTROPHILS % (AUTO) 84.9 % (40.0-77.0); PLATELET COUNT (AUTO) 53 K/uL (130-400); RED BLOOD CELL COUNT(AUTO) 2.41 MIL/uL (4.50-6.20); RED CELL DISTRIBUTION WIDTH 14.1 % (11.0-15.5); WHITE BLOOD COUNT (AUTO) 10.4 K/uL (4.8-10.8)
[2023-06-26 02:39] LABS: CREATININE 1.4 mg/dL (0.5-1.3); POTASSIUM 3.7 mmol/L (3.5-5.1)
[2023-06-26 02:44] LABS: ALBUMIN 2.7 g/dL (3.5-5.0); BILIRUBIN,TOTAL 1.7 mg/dL (0.2-1.0); MAGNESIUM 2.1 mg/dL (1.80-2.40); TOTAL PROTEIN, SERUM 5.5 g/dL (6.0-8.3)
[2023-06-26] MEDS ORDERED: 0.9%NACL 50ML IV SCH (08:00)
[2023-06-26] MEDS: ZOSYN 3.375GM +NS 50ML IVPB SCH (08:15)
[2023-06-26 09:03] LABS: APPEARANCE,URINE CLEAR (CLEAR); BILIRUBIN,URINE NEGATIVE (NEGATIVE); COLOR,URINE YELLOW (YELLOW); GLUCOSE, URINE (UA) NEGATIVE (NEGATIVE); KETONES,URINE 5 mg/dL (NEGATIVE); LEUKOCYTE ESTERASE ,URINE NEGATIVE Leu/uL (NEGATIVE); NITRATE,URINE NEGATIVE (NEGATIVE); OCCULT BLOOD,URINE MODERATE (NEGATIVE); PROTEIN,URINE 30 mg/dL (NEGATIVE); UROBILINOGEN,URINE 0.2 mg/dL (0.2-1.0)
[2023-06-26 09:14] LABS: ADD UA MICROSCOPIC YES
[2023-06-26 09:18] LABS: BACTERIA,URINE RARE /HPF (None Seen); MUCUS,URINE RARE LPF (None Seen); SQUAMOUS EPITHELIAL CELL,UR RARE /HPF (0-2)
[2023-06-26] MEDS: THIAMINE HCL 100 MG TABLET PO SCH (12:34)
[2023-06-26] MEDS: FOLIC ACID 1 MG TABLET PO SCH (12:34)
[2023-06-26] MEDS: LACTULOSE 20 GM/30 ML UDCUP PO SCH (14:53)
[2023-06-26] MEDS: SPIRONOLACTONE 25 MG TAB PO SCH (19:58)
[2023-06-26] MEDS: RIFAXIMIN 550 MG TABLET PO SCH (19:58)
[2023-06-27] VITALS (14 sets, daily range): BP systolic 106–124; BP diastolic 54–76; PULSE 57–76; RESP 18–20; O2SAT 96
[2023-06-27 04:11] LABS: HEMATOCRIT 24.1 % (42-54); MEAN CORPUSCULAR HEMOGLOBIN 33.5 pg (27.0-33.0); MEAN CORPUSCULAR HGB CONC 33.6 g/dL (32.0-36.0); MEAN CORPUSCULAR VOLUME 99.6 fL (79-99); RED BLOOD CELL COUNT(AUTO) 2.42 MIL/uL (4.50-6.20); RED CELL DISTRIBUTION WIDTH 14.4 % (11.0-15.5)
[2023-06-27 04:25] LABS: INR 1.5 (0.85-1.15); PROTHROMBIN TIME 17.2 SEC (9.6-11.6)
[2023-06-27 04:26] LABS: PARTIAL THROMBOPLASTIN TIME 43.3 SEC (26.3-35.5)
[2023-06-27 04:28] LABS: ALBUMIN 2.6 g/dL (3.5-5.0); BILIRUBIN,TOTAL 1.6 mg/dL (0.2-1.0); CREATININE 1.6 mg/dL (0.5-1.3); MAGNESIUM 2.2 mg/dL (1.80-2.40); TOTAL PROTEIN, SERUM 5.5 g/dL (6.0-8.3)
[2023-06-27] MEDS: FUROSEMIDE 20 MG TABLET PO SCH (08:10)
[2023-06-27] MEDS ORDERED: ALBUMIN (HUMAN) 25% 50 ML IV SCH (14:00)
[2023-06-27 14:26] LABS: BODY FLUID RBC 9112 /cu. mm.; BODY FLUID WBC 438 /cu. mm.
[2023-06-27 14:31] LABS: APPEARANCE BODY FLUID CLOUDY (CLEAR); SPECIMENTYPE,BODY FLUID ASCITES
[2023-06-27 14:32] LABS: COLOR,BODY FLUID ORANGE (LT YELLOW); TOTAL VOLUME,BODY FLUID 6800 mL
[2023-06-27 15:32] LABS: BF LYMPHOCYTE 6 %; BF MACROPHAGE 17; BF MONOCYTE 1 %; BF OTHER CELLS 1; BF TOTAL CELLS COUNTED 100
== END 2023-06-27 19:25 | disposition home or self-care (01) | DRG 871 ==
LOC: EDH 21:45 → EDHIP 23:29 → 3CH 06-26 01:11
PROVIDERS: ADMIT Internal Medicine Infectious Disease; ATTEND Internal Medicine Infectious Disease
DX: A41.50 Gram-negative sepsis, unspecified (principal); K65.2 Spontaneous bacterial peritonitis; D61.818 Other pancytopenia; N39.0 Urinary tract infection, site not specified; R18.8 Other ascites; K74.60 Unspecified cirrhosis of liver; I10 Essential (primary) hypertension; K76.82 Hepatic encephalopathy; N19 Unspecified kidney failure; Z82.49 Family history of ischemic heart disease and other diseases of the circulatory system; Z87.440 Personal history of urinary (tract) infections; Z87.442 Personal history of urinary calculi
CPT/HCPCS: 36415; 49083; 71045; 80053; 81001; 82140; 83605; 83690; 83735; 85025; 85027; 85610; 85730; 87040; 87071; 87077; 87088; 87186; 87205; 87426; 87804; 89051; 96365; 96375; C1729; C1894; G0378; J2270; J2405; J2543; J3370; J7030

== ENCOUNTER → 2023-07-11 | Outpatient (CLI) | payer MEDICARE ==
[~2023-07-11] MED LIST changes: +ALBUMIN (HUMAN) 25% 200 ML IV ONE; -TAMS-1 PO
[2023-07-11 15:42] LABS: APPEARANCE BODY FLUID TURBID (CLEAR); COLOR,BODY FLUID DARK YELLOW (LT YELLOW); SPECIMENTYPE,BODY FLUID ASCITES; TOTAL VOLUME,BODY FLUID 7000 mL
[2023-07-11 15:49] LABS: BODY FLUID RBC 4318 /cu. mm.; BODY FLUID WBC 158 /cu. mm.
[2023-07-11 15:59] LABS: BF LYMPHOCYTE 78 %; BF MESOTHELIAL 3 %; BF MONOCYTE 9 %; BF TOTAL CELLS COUNTED 100
== END | disposition home or self-care (01) ==
LOC: RAH 07:55
PROVIDERS: ATTEND Internal Medicine Hepatology
DX: R18.8 Other ascites (principal); K74.69 Other cirrhosis of liver; D61.818 Other pancytopenia; D64.9 Anemia, unspecified; K65.2 Spontaneous bacterial peritonitis; K72.90 Hepatic failure, unspecified without coma; I85.10 Secondary esophageal varices without bleeding; M79.81 Nontraumatic hematoma of soft tissue; D69.6 Thrombocytopenia, unspecified; E72.20 Disorder of urea cycle metabolism, unspecified; I10 Essential (primary) hypertension; Z79.01 Long term (current) use of anticoagulants; Z82.49 Family history of ischemic heart disease and other diseases of the circulatory system; Z87.891 Personal history of nicotine dependence; Z90.49 Acquired absence of other specified parts of digestive tract
CPT/HCPCS: 49083; 89051; 87071; 87205; P9046; C1729

== ENCOUNTER 2023-07-15 07:02 | Emergency (ER) | payer MEDICARE ==
[~2023-07-15] VITALS: Ht 175.3 cm; Wt 97.5 kg
[~2023-07-15 07:02] MED LIST changes: -ALBUMIN (HUMAN) 25% 200 ML IV ONE
[2023-07-15 07:47] LABS: BASOPHILS # (AUTO) 0.02 K/uL (0.00-0.20); BASOPHILS % (AUTO) 0.5 % (0.0-5.0); EOSINOPHILS # (AUTO) 0.21 K/uL (0.00-0.70); EOSINOPHILS % (AUTO) 5.5 % (0.0-8.0); IMMATURE GRANULOCYTE ABSOLUTE 0.02 K/uL (0-1); LYMPHOCYTES # (AUTO) 0.7 K/uL (1.0-4.8); LYMPHOCYTES % (AUTO) 18.4 % (21.0-51.0); MEAN CORPUSCULAR HEMOGLOBIN 33.9 pg (27.0-33.0); MEAN CORPUSCULAR HGB CONC 34.3 g/dL (32.0-36.0); MEAN CORPUSCULAR VOLUME 98.7 fL (79-99); MONOCYTES # (AUTO) 0.3 K/uL (0.1-1.0); MONOCYTES % (AUTO) 8.6 % (3.0-13.0); NEUTROPHILS # (AUTO) 2.6 K/uL (1.8-7.7); NEUTROPHILS % (AUTO) 66.5 % (40.0-77.0); PLATELET COUNT (AUTO) 42 K/uL (130-400); RED BLOOD CELL COUNT(AUTO) 3.04 MIL/uL (4.50-6.20); RED CELL DISTRIBUTION WIDTH 15.8 % (11.0-15.5); WHITE BLOOD COUNT (AUTO) 3.9 K/uL (4.8-10.8)
[2023-07-15 08:10] LABS: BILIRUBIN,TOTAL 5.5 mg/dL (0.2-1.0); CREATININE 1.1 mg/dL (0.5-1.3); INR 1.34 (0.85-1.15); POTASSIUM 3.3 mmol/L (3.5-5.1); PROTHROMBIN TIME 15.5 SEC (9.6-11.6); TOTAL PROTEIN, SERUM 6.3 g/dL (6.0-8.3)
[2023-07-15 08:11] LABS: PARTIAL THROMBOPLASTIN TIME 33.9 SEC (26.3-35.5)
[2023-07-15] MEDS: SODIUM BICARB 50MEQ 50ML VIAL 50 ML ONE (11:46)
[2023-07-15] MEDS: ALBUMIN (HUMAN) 25% 200 ML IV ONE (11:47)
[2023-07-15 13:01] VITALS: BP 110/60; PULSE 68; RESP 14; O2SAT 99
== END 2023-07-15 13:36 | disposition home or self-care (01) ==
LOC: EDH 07:02
DX: K70.31 Alcoholic cirrhosis of liver with ascites (principal); R14.0 Abdominal distension (gaseous); I10 Essential (primary) hypertension; Z79.899 Other long term (current) drug therapy
CPT/HCPCS: 49083; 99285; 96365; 80053; 85025; 85610; 85730; 36415; P9046; J3490; C1729

== ENCOUNTER 2023-08-03 23:12 | Emergency (ER) | payer MEDICARE ==
[~2023-08-03] VITALS: Ht 172.7 cm; Wt 122.5 kg
[2023-08-04 00:58] LABS: BASOPHILS # (AUTO) 0.03 K/uL (0.00-0.20); BASOPHILS % (AUTO) 0.5 % (0.0-5.0); EOSINOPHILS # (AUTO) 0.03 K/uL (0.00-0.70); EOSINOPHILS % (AUTO) 0.5 % (0.0-8.0); HEMATOCRIT 27.6 % (42-54); IMMATURE GRANULOCYTE ABSOLUTE 0.04 K/uL (0-1); LYMPHOCYTES # (AUTO) 0.4 K/uL (1.0-4.8); LYMPHOCYTES % (AUTO) 6.6 % (21.0-51.0); MEAN CORPUSCULAR HEMOGLOBIN 34.2 pg (27.0-33.0); MEAN CORPUSCULAR HGB CONC 34.4 g/dL (32.0-36.0); MEAN CORPUSCULAR VOLUME 99.3 fL (79-99); MONOCYTES # (AUTO) 0.5 K/uL (0.1-1.0); MONOCYTES % (AUTO) 6.8 % (3.0-13.0); NEUTROPHILS # (AUTO) 5.7 K/uL (1.8-7.7); PLATELET COUNT (AUTO) 85 K/uL (130-400); RED BLOOD CELL COUNT(AUTO) 2.78 MIL/uL (4.50-6.20); WHITE BLOOD COUNT (AUTO) 6.7 K/uL (4.8-10.8)
[2023-08-04 01:05] LABS: CREATININE 1.6 mg/dL (0.5-1.3); POTASSIUM 3.5 mmol/L (3.5-5.1)
[2023-08-04] MEDS: KETOROLAC 30MG VIAL (30MG/ML) ONE (01:12)
[2023-08-04 01:45] VITALS: BP 101/52; PULSE 62; RESP 20; O2SAT 100
[2023-08-04] MEDS: ONDANSETRON ODT 4MG TAB SL ONE (02:22)
[2023-08-04] MEDS: ONDANSETRON ODT 4MG TAB ONE (02:22)
== END 2023-08-04 02:30 | disposition home or self-care (01) ==
LOC: EDH 23:12
DX: N20.0 Calculus of kidney (principal); K74.60 Unspecified cirrhosis of liver; K21.9 Gastro-esophageal reflux disease without esophagitis; Z79.899 Other long term (current) drug therapy; Z90.49 Acquired absence of other specified parts of digestive tract
CPT/HCPCS: 99285; 74176; 82550; 84484; 80048; 85025; 36415; 93005; 96372; J1885; 96374; 96375

== ENCOUNTER → 2023-08-31 | Outpatient (CLI) | payer MEDICARE ==
[~2023-08-31] MED LIST changes: +ALBUMIN (HUMAN) 25% 100 ML IV ONE; +ALBUMIN (HUMAN) 25% 200 ML IV ONE
[2023-08-31 14:07] LABS: APPEARANCE BODY FLUID CLEAR (CLEAR); COLOR,BODY FLUID YELLOW (LT YELLOW); SPECIMENTYPE,BODY FLUID ASCITES; TOTAL VOLUME,BODY FLUID 7200 mL
[2023-08-31 14:39] LABS: BODY FLUID RBC 1649 /cu. mm.; BODY FLUID WBC 50 /cu. mm.
[2023-08-31 14:54] LABS: BF EOSINOPHIL 1 %; BF LYMPHOCYTE 11 %; BF MESOTHELIAL 63 %; BF MONOCYTE 17 %; BF TOTAL CELLS COUNTED 100
== END | disposition home or self-care (01) ==
LOC: RAH 09:17
PROVIDERS: ATTEND Internal Medicine Nephrology
DX: R18.8 Other ascites (principal)
CPT/HCPCS: 49083; 89051; 87086; 87186; 87205; 87071; P9046 ×2; C1729

== ENCOUNTER → 2023-09-07 | Outpatient (CLI) | payer MEDICARE ==
[~2023-09-07] MED LIST changes: -ALBUMIN (HUMAN) 25% 100 ML IV ONE
[2023-09-07 10:30] LABS: INR 1.44 (0.85-1.15); PROTHROMBIN TIME 15.1 SEC (9.6-11.6)
[2023-09-07 10:31] LABS: PARTIAL THROMBOPLASTIN TIME 36.7 SEC (26.3-35.5)
[2023-09-07 15:42] LABS: APPEARANCE BODY FLUID CLOUDY (CLEAR); BODY FLUID RBC 3645 /cu. mm.; BODY FLUID WBC 129 /cu. mm.; COLOR,BODY FLUID ORANGE (LT YELLOW); SPECIMENTYPE,BODY FLUID ASCITES; TOTAL VOLUME,BODY FLUID 10200 mL
[2023-09-07 16:11] LABS: BF EOSINOPHIL 1 %; BF LYMPHOCYTE 9 %; BF MACROPHAGE 30; BF MONOCYTE 15 %; BF OTHER CELLS 2; BF TOTAL CELLS COUNTED 100
== END | disposition home or self-care (01) ==
LOC: RAH 09:24
PROVIDERS: ATTEND Internal Medicine Nephrology
DX: R18.8 Other ascites (principal); K74.60 Unspecified cirrhosis of liver; I10 Essential (primary) hypertension; D69.6 Thrombocytopenia, unspecified; N20.0 Calculus of kidney; D64.9 Anemia, unspecified; Z79.899 Other long term (current) drug therapy; Z90.49 Acquired absence of other specified parts of digestive tract
CPT/HCPCS: 49083; 89051; 85610; 85730; 87071; 87205; 36415; P9046; C1729

== ENCOUNTER → 2023-09-14 | Outpatient (CLI) | payer MEDICARE ==
[~2023-09-14] MED LIST changes: -ONDA22I PO
== END | disposition home or self-care (01) ==
LOC: RAH 09:34
PROVIDERS: ATTEND Internal Medicine Nephrology
DX: R18.8 Other ascites (principal); I10 Essential (primary) hypertension; K74.60 Unspecified cirrhosis of liver; D69.6 Thrombocytopenia, unspecified; N20.0 Calculus of kidney; D64.9 Anemia, unspecified; Z79.899 Other long term (current) drug therapy; Z90.49 Acquired absence of other specified parts of digestive tract
CPT/HCPCS: 49083; P9046; C1729; 96365

== ENCOUNTER 2023-10-05 18:18 | Inpatient (IN) | payer MEDICARE ==
[~2023-10-05] VITALS: Ht 175.3 cm; Wt 88.0 kg
[~2023-10-05 18:18] MED LIST changes: -ALBUMIN (HUMAN) 25% 200 ML IV ONE
[2023-10-05 19:13] LABS: BASOPHILS # (AUTO) 0.03 K/uL (0.00-0.20); BASOPHILS % (AUTO) 0.2 % (0.0-5.0); HEMATOCRIT 26.8 % (42-54); IMMATURE GRANULOCYTE ABSOLUTE 0.12 K/uL (0-1); LYMPHOCYTES # (AUTO) 0.4 K/uL (1.0-4.8); LYMPHOCYTES % (AUTO) 2.5 % (21.0-51.0); MEAN CORPUSCULAR HEMOGLOBIN 33.8 pg (27.0-33.0); MEAN CORPUSCULAR HGB CONC 34.3 g/dL (32.0-36.0); MEAN CORPUSCULAR VOLUME 98.5 fL (79-99); MONOCYTES # (AUTO) 0.8 K/uL (0.1-1.0); MONOCYTES % (AUTO) 5.3 % (3.0-13.0); NEUTROPHILS # (AUTO) 14.1 K/uL (1.8-7.7); NEUTROPHILS % (AUTO) 91.2 % (40.0-77.0); PLATELET COUNT (AUTO) 66 K/uL (130-400); RED BLOOD CELL COUNT(AUTO) 2.72 MIL/uL (4.50-6.20); RED CELL DISTRIBUTION WIDTH 14.6 % (11.0-15.5); WHITE BLOOD COUNT (AUTO) 15.4 K/uL (4.8-10.8)
[2023-10-05 19:18] LABS: APPEARANCE,URINE CLEAR (CLEAR); BILIRUBIN,URINE NEGATIVE (NEGATIVE); COLOR,URINE YELLOW (YELLOW); GLUCOSE, URINE (UA) NEGATIVE (NEGATIVE); KETONES,URINE 5 mg/dL (NEGATIVE); LEUKOCYTE ESTERASE ,URINE 75 Leu/uL (NEGATIVE); NITRATE,URINE NEGATIVE (NEGATIVE); OCCULT BLOOD,URINE SMALL (NEGATIVE); PH,URINE 5.5 (5.0-8.0); PROTEIN,URINE 20 mg/dL (NEGATIVE); UROBILINOGEN,URINE 0.2 mg/dL (0.2-1.0)
[2023-10-05 19:22] LABS: ADD UA MICROSCOPIC YES
[2023-10-05 19:27] LABS: BACTERIA,URINE RARE /HPF (None Seen); MUCUS,URINE RARE LPF (None Seen); SQUAMOUS EPITHELIAL CELL,UR RARE /HPF (0-2)
[2023-10-05 19:27] LABS: POTASSIUM 4.2 mmol/L (3.5-5.1)
[2023-10-05 19:32] LABS: ALBUMIN 3.3 g/dL (3.5-5.0); BILIRUBIN,TOTAL 2.8 mg/dL (0.2-1.0); TOTAL PROTEIN, SERUM 6.5 g/dL (6.0-8.3)
[2023-10-05 19:35] LABS: PLATELET MORPHOLOGY COMMENT DECREASED
[2023-10-05] MEDS: ondanSETRON 4MG INJ IVP ONE ×2 (19:44→20:20)
[2023-10-05] MEDS: morPHINE 4 MG SYG IVP ONE (20:20)
[2023-10-05 20:42] LABS: INR 1.37 (0.85-1.15); PROTHROMBIN TIME 14.5 SEC (9.6-11.6)
[2023-10-05 20:43] LABS: PARTIAL THROMBOPLASTIN TIME 39.9 SEC (26.3-35.5)
[2023-10-05] MEDS: cefTRIAXone 1G VIAL IVPB ONE (20:52)
[2023-10-05] MEDS: ALBUMIN (HUMAN) 25% 50 ML IV STA (20:52)
[2023-10-05] MEDS ORDERED: ondanSETRON 4MG INJ IVP PRN (21:00)
[2023-10-05] MEDS ORDERED: acetaMINOPHEN 325 MG TAB PO PRN (21:00)
[2023-10-05] MEDS ORDERED: morPHINE 2 MG SYG IVP PRN (21:00)
[2023-10-05] MEDS ORDERED: 0.9%NACL 50ML IV SCH (21:00)
[2023-10-05] MEDS: ZOSYN 3.375GM +NS 50ML IVPB SCH (21:14)
[2023-10-05] MEDS: LACTULOSE 20 GM/30 ML UDCUP PO ONE (21:58)
[2023-10-05] MEDS: 0.9%NACL 1000ML 1,000 ML IV SCH (23:55)
[2023-10-06] MEDS: morPHINE 2 MG SYG IVP PRN (00:20)
[2023-10-06 02:10] VITALS: BP 121/70; PULSE 70; RESP 20; TEMP 98
[2023-10-06 04:00] VITALS: BP 118/69; PULSE 70; RESP 18; TEMP 97.7
[2023-10-06 04:04] LABS: BASOPHILS # (AUTO) 0.01 K/uL (0.00-0.20); BASOPHILS % (AUTO) 0.1 % (0.0-5.0); HEMATOCRIT 23.2 % (42-54); IMMATURE GRANULOCYTE ABSOLUTE 0.07 K/uL (0-1); LYMPHOCYTES # (AUTO) 0.3 K/uL (1.0-4.8); LYMPHOCYTES % (AUTO) 3.5 % (21.0-51.0); MEAN CORPUSCULAR HEMOGLOBIN 33.6 pg (27.0-33.0); MEAN CORPUSCULAR HGB CONC 34.5 g/dL (32.0-36.0); MEAN CORPUSCULAR VOLUME 97.5 fL (79-99); MONOCYTES # (AUTO) 0.7 K/uL (0.1-1.0); MONOCYTES % (AUTO) 6.7 % (3.0-13.0); NEUTROPHILS # (AUTO) 8.6 K/uL (1.8-7.7); PLATELET COUNT (AUTO) 53 K/uL (130-400); RED BLOOD CELL COUNT(AUTO) 2.38 MIL/uL (4.50-6.20); RED CELL DISTRIBUTION WIDTH 14.5 % (11.0-15.5); WHITE BLOOD COUNT (AUTO) 9.7 K/uL (4.8-10.8)
[2023-10-06 04:27] LABS: HEMOGLOBIN A1C 4.2 % (4.0-6.0)
[2023-10-06 04:28] LABS: ALBUMIN 2.8 g/dL (3.5-5.0); BILIRUBIN,TOTAL 2.3 mg/dL (0.2-1.0); MAGNESIUM 2.7 mg/dL (1.80-2.40); POTASSIUM 4.6 mmol/L (3.5-5.1); TOTAL PROTEIN, SERUM 5.8 g/dL (6.0-8.3)
[2023-10-06] MEDS: ZOSYN 3.375GM+NS 50ML IV SCH (05:32)
[2023-10-06 08:00] VITALS: BP 107/63; PULSE 67; RESP 19; TEMP 98; O2SAT 98
[2023-10-06] MEDS: FAMOTIDINE 20MG VIAL IV SCH (09:28)
[2023-10-06] MEDS ORDERED: LACE ASSESSMENT (SCORE > 11) MISC SCH (14:00)
[2023-10-06] MEDS: ondanSETRON 4MG INJ IV PRN (15:34)
[2023-10-06 20:00] VITALS: BP 136/80; PULSE 78; RESP 18; TEMP 98.6; O2SAT 98
[2023-10-07] VITALS (7 sets, daily range): BP systolic 113–132; BP diastolic 64–77; PULSE 73–80; RESP 18–20; TEMP 97.7–99.1; O2SAT 96–98
[2023-10-07 05:19] LABS: BASOPHILS # (AUTO) 0.02 K/uL (0.00-0.20); BASOPHILS % (AUTO) 0.2 % (0.0-5.0); EOSINOPHILS # (AUTO) 0.01 K/uL (0.00-0.70); EOSINOPHILS % (AUTO) 0.1 % (0.0-8.0); HEMATOCRIT 28.7 % (42-54); IMMATURE GRANULOCYTE ABSOLUTE 0.05 K/uL (0-1); LYMPHOCYTES # (AUTO) 0.4 K/uL (1.0-4.8); LYMPHOCYTES % (AUTO) 3.3 % (21.0-51.0); MEAN CORPUSCULAR HEMOGLOBIN 33.2 pg (27.0-33.0); MEAN CORPUSCULAR HGB CONC 33.8 g/dL (32.0-36.0); MEAN CORPUSCULAR VOLUME 98.3 fL (79-99); MONOCYTES # (AUTO) 1.3 K/uL (0.1-1.0); MONOCYTES % (AUTO) 12.1 % (3.0-13.0); NEUTROPHILS % (AUTO) 83.8 % (40.0-77.0); PLATELET COUNT (AUTO) 88 K/uL (130-400); RED BLOOD CELL COUNT(AUTO) 2.92 MIL/uL (4.50-6.20); RED CELL DISTRIBUTION WIDTH 14.6 % (11.0-15.5); WHITE BLOOD COUNT (AUTO) 10.8 K/uL (4.8-10.8)
[2023-10-07 05:51] LABS: ALBUMIN 2.8 g/dL (3.5-5.0); BILIRUBIN,TOTAL 3.3 mg/dL (0.2-1.0); CREATININE 2.4 mg/dL (0.5-1.3); POTASSIUM 5.2 mmol/L (3.5-5.1); TOTAL PROTEIN, SERUM 6.1 g/dL (6.0-8.3)
[2023-10-07] MEDS ORDERED: PHARMACY COMMUNICATION MISC SCH (14:30)
[2023-10-07] MEDS ORDERED: COMPOUND IV MISC 1 EACH IVSOLN MISC PRN (14:30)
[2023-10-07] MEDS: BisaCODYL 10 MG SUPP.RECT RC ONE (18:47)
[2023-10-08] VITALS (26 sets, daily range): BP systolic 105–119; BP diastolic 61–77; PULSE 59–86; RESP 12–21; TEMP 97–99; O2SAT 94–96
[2023-10-08 04:26] LABS: HEMATOCRIT 23.9 % (42-54); MEAN CORPUSCULAR HEMOGLOBIN 33.1 pg (27.0-33.0); MEAN CORPUSCULAR HGB CONC 34.3 g/dL (32.0-36.0); MEAN CORPUSCULAR VOLUME 96.4 fL (79-99); RED BLOOD CELL COUNT(AUTO) 2.48 MIL/uL (4.50-6.20); RED CELL DISTRIBUTION WIDTH 14.4 % (11.0-15.5); WHITE BLOOD COUNT (AUTO) 6.6 K/uL (4.8-10.8)
[2023-10-08 04:41] LABS: ALBUMIN 2.5 g/dL (3.5-5.0); BILIRUBIN,TOTAL 2.8 mg/dL (0.2-1.0); CREATININE 2.2 mg/dL (0.5-1.3); POTASSIUM 4.8 mmol/L (3.5-5.1); TOTAL PROTEIN, SERUM 5.5 g/dL (6.0-8.3)
[2023-10-08] MEDS ORDERED: LIDOCAINE PF 100MG/5ML (2%) SYRINGE 5ML ONE (11:09)
[2023-10-08] MEDS ORDERED: proPOFol 10 MG/ML 20ML VIAL IV ONE (11:09)
[2023-10-08] MEDS: MEROPENEM 1 GM in 0.9%NACL 100ML 100 ML IV SCH (12:19)
[2023-10-08 16:09] LABS: ABG BASE EXCESS -3.9 mmol/L (-2.0-3.0); ABG OXYGEN SATURATION 97.2 % (94.0-98.0); ABG PCO2 29 mmHg (35-48); ABG PH 7.429 (7.350-7.450); DEVICE COMMENT RR RA; PO2, ARTERIAL BG 90.3 mmHg (83.0-108.0); VENT MODE, BG RA (ROOM AIR)
[2023-10-09] VITALS (8 sets, daily range): BP systolic 111–121; BP diastolic 67–74; PULSE 66–98; RESP 16–22; TEMP 98–98.6; O2SAT 96–98
[2023-10-09 04:08] LABS: HEMATOCRIT 25.6 % (42-54); MEAN CORPUSCULAR HEMOGLOBIN 33.1 pg (27.0-33.0); MEAN CORPUSCULAR HGB CONC 34.4 g/dL (32.0-36.0); MEAN CORPUSCULAR VOLUME 96.2 fL (79-99); RED BLOOD CELL COUNT(AUTO) 2.66 MIL/uL (4.50-6.20); RED CELL DISTRIBUTION WIDTH 14.6 % (11.0-15.5)
[2023-10-09 04:32] LABS: ALBUMIN 2.6 g/dL (3.5-5.0); BILIRUBIN,TOTAL 2.5 mg/dL (0.2-1.0); CREATININE 1.8 mg/dL (0.5-1.3); MAGNESIUM 2.9 mg/dL (1.80-2.40); POTASSIUM 4.3 mmol/L (3.5-5.1); TOTAL PROTEIN, SERUM 5.7 g/dL (6.0-8.3)
[2023-10-09] MEDS: ketOROlac 15MG/ML VIAL (15MG/ML) IV PRN (09:30)
[2023-10-09] MEDS: SIMETHICONE 80 MG TAB.CHEW PO SCH (14:00)
[2023-10-09] MEDS: metoCLOPRAmide 10 MG/2 ML VIAL IVP SCH (18:08)
[2023-10-09] MEDS: MEROPENEM 1 GM/NS 100 CRCL 26-50 IV SCH (20:50)
[2023-10-10] VITALS (8 sets, daily range): BP systolic 105–117; BP diastolic 64–73; PULSE 69–81; RESP 17–20; TEMP 98–99.3; O2SAT 97–98
[2023-10-10] MEDS: ZOLPidem TARTrate 5 MG TAB PO PRN (00:35)
[2023-10-10 03:56] LABS: HEMATOCRIT 24.6 % (42-54); MEAN CORPUSCULAR HEMOGLOBIN 33.6 pg (27.0-33.0); MEAN CORPUSCULAR HGB CONC 34.6 g/dL (32.0-36.0); MEAN CORPUSCULAR VOLUME 97.2 fL (79-99); RED BLOOD CELL COUNT(AUTO) 2.53 MIL/uL (4.50-6.20); RED CELL DISTRIBUTION WIDTH 14.4 % (11.0-15.5); WHITE BLOOD COUNT (AUTO) 5.3 K/uL (4.8-10.8)
[2023-10-10 04:17] LABS: ALBUMIN 2.3 g/dL (3.5-5.0); BILIRUBIN,TOTAL 2.2 mg/dL (0.2-1.0); CREATININE 1.8 mg/dL (0.5-1.3); MAGNESIUM 2.6 mg/dL (1.80-2.40); POTASSIUM 4.2 mmol/L (3.5-5.1); TOTAL PROTEIN, SERUM 5.4 g/dL (6.0-8.3)
[2023-10-10] MEDS: ALBUMIN (HUMAN) 25% 50 ML IV SCH (08:56)
[2023-10-10 09:40] LABS: CREATININE,URINE RANDOM 119.59 mg/dL (30-135); SODIUM,URINE RANDOM < 13 mmol/l (40-220)
[2023-10-10] MEDS: LACTULOSE 20 GM/30 ML UDCUP PO PRN (12:30)
[2023-10-10] MEDS ORDERED: ALBUMIN (HUMAN) 25% 100 ML IV PRN (15:00)
[2023-10-10] MEDS: FAMOTIDINE 20MG VIAL IV SCH (20:21)
[2023-10-10] MEDS ORDERED: ALBUMIN (HUMAN) 25% 100 ML IV SCH (21:00)
[2023-10-11] VITALS (9 sets, daily range): BP systolic 113–123; BP diastolic 63–78; PULSE 72–81; RESP 18; TEMP 98.4–99.2; O2SAT 97–98
[2023-10-11 03:41] LABS: BASOPHILS # (AUTO) 0.01 K/uL (0.00-0.20); BASOPHILS % (AUTO) 0.2 % (0.0-5.0); EOSINOPHILS # (AUTO) 0.14 K/uL (0.00-0.70); EOSINOPHILS % (AUTO) 2.8 % (0.0-8.0); HEMATOCRIT 24.6 % (42-54); IMMATURE GRANULOCYTE ABSOLUTE 0.09 K/uL (0-1); LYMPHOCYTES # (AUTO) 0.4 K/uL (1.0-4.8); LYMPHOCYTES % (AUTO) 8.9 % (21.0-51.0); MEAN CORPUSCULAR HEMOGLOBIN 33.9 pg (27.0-33.0); MEAN CORPUSCULAR VOLUME 96.9 fL (79-99); MONOCYTES # (AUTO) 0.7 K/uL (0.1-1.0); MONOCYTES % (AUTO) 14.4 % (3.0-13.0); NEUTROPHILS # (AUTO) 3.6 K/uL (1.8-7.7); NEUTROPHILS % (AUTO) 71.9 % (40.0-77.0); PLATELET COUNT (AUTO) 60 K/uL (130-400); RED BLOOD CELL COUNT(AUTO) 2.54 MIL/uL (4.50-6.20); RED CELL DISTRIBUTION WIDTH 14.4 % (11.0-15.5); WHITE BLOOD COUNT (AUTO) 4.9 K/uL (4.8-10.8)
[2023-10-11 03:54] LABS: CREATININE 1.4 mg/dL (0.5-1.3); MAGNESIUM 2.7 mg/dL (1.80-2.40); PHOSPHORUS 3.2 mg/dL (2.5-4.9); POTASSIUM 3.9 mmol/L (3.5-5.1)
[2023-10-11] MEDS: ALBUMIN (HUMAN) 25% 100 ML IV SCH (06:18)
[2023-10-11 09:45] LABS: INR 1.45 (0.85-1.15); PROTHROMBIN TIME 15.2 SEC (9.6-11.6)
[2023-10-11 09:47] LABS: PARTIAL THROMBOPLASTIN TIME 43.2 SEC (26.3-35.5)
[2023-10-12] VITALS (8 sets, daily range): BP systolic 100–120; BP diastolic 50–65; PULSE 75–90; RESP 18; TEMP 98.2–99.5; O2SAT 97
[2023-10-12 05:06] LABS: BASOPHILS # (AUTO) 0.01 K/uL (0.00-0.20); BASOPHILS % (AUTO) 0.2 % (0.0-5.0); EOSINOPHILS # (AUTO) 0.11 K/uL (0.00-0.70); EOSINOPHILS % (AUTO) 1.7 % (0.0-8.0); HEMATOCRIT 25.6 % (42-54); LYMPHOCYTES # (AUTO) 0.7 K/uL (1.0-4.8); LYMPHOCYTES % (AUTO) 11.4 % (21.0-51.0); MEAN CORPUSCULAR HEMOGLOBIN 33.3 pg (27.0-33.0); MEAN CORPUSCULAR HGB CONC 34.8 g/dL (32.0-36.0); MEAN CORPUSCULAR VOLUME 95.9 fL (79-99); MONOCYTES # (AUTO) 0.8 K/uL (0.1-1.0); MONOCYTES % (AUTO) 13.1 % (3.0-13.0); NEUTROPHILS # (AUTO) 4.6 K/uL (1.8-7.7); PLATELET COUNT (AUTO) 74 K/uL (130-400); RED BLOOD CELL COUNT(AUTO) 2.67 MIL/uL (4.50-6.20); RED CELL DISTRIBUTION WIDTH 14.8 % (11.0-15.5); WHITE BLOOD COUNT (AUTO) 6.3 K/uL (4.8-10.8)
[2023-10-12 05:17] LABS: CREATININE 1.2 mg/dL (0.5-1.3); POTASSIUM 3.6 mmol/L (3.5-5.1)
[2023-10-12] MEDS: 0.9%NACL 10ML VIAL IV SCH (08:20)
[2023-10-12] MEDS: hydroMORPHone 0.5 MG SYG (0.5MG/0.5ML) IVP ONE (11:37)
[2023-10-12] MEDS: ALBUMIN (HUMAN) 25% 200 ML IV SCH (15:07)
[2023-10-12 15:54] LABS: BODY FLUID RBC 1312 /cu. mm.; BODY FLUID WBC 241 /cu. mm.
[2023-10-12 19:34] LABS: BF LYMPHOCYTE 12 %; BF OTHER CELLS 1; BF TOTAL CELLS COUNTED 100
[2023-10-12 21:29] LABS: APPEARANCE BODY FLUID SLIGHTLY CLOUDY (CLEAR); COLOR,BODY FLUID YELLOW (LT YELLOW); SPECIMENTYPE,BODY FLUID ASCITES; TOTAL VOLUME,BODY FLUID 10500 mL
[2023-10-13 03:50] LABS: BASOPHILS # (AUTO) 0.01 K/uL (0.00-0.20); BASOPHILS % (AUTO) 0.2 % (0.0-5.0); EOSINOPHILS # (AUTO) 0.12 K/uL (0.00-0.70); EOSINOPHILS % (AUTO) 1.9 % (0.0-8.0); HEMATOCRIT 25.2 % (42-54); IMMATURE GRANULOCYTE ABSOLUTE 0.07 K/uL (0-1); LYMPHOCYTES # (AUTO) 0.5 K/uL (1.0-4.8); LYMPHOCYTES % (AUTO) 7.3 % (21.0-51.0); MEAN CORPUSCULAR HEMOGLOBIN 32.8 pg (27.0-33.0); MEAN CORPUSCULAR HGB CONC 34.5 g/dL (32.0-36.0); MEAN CORPUSCULAR VOLUME 95.1 fL (79-99); MONOCYTES # (AUTO) 0.7 K/uL (0.1-1.0); MONOCYTES % (AUTO) 10.8 % (3.0-13.0); NEUTROPHILS # (AUTO) 5.1 K/uL (1.8-7.7); NEUTROPHILS % (AUTO) 78.7 % (40.0-77.0); PLATELET COUNT (AUTO) 62 K/uL (130-400); RED BLOOD CELL COUNT(AUTO) 2.65 MIL/uL (4.50-6.20); RED CELL DISTRIBUTION WIDTH 14.7 % (11.0-15.5); WHITE BLOOD COUNT (AUTO) 6.4 K/uL (4.8-10.8)
[2023-10-13 03:56] LABS: CREATININE 1.1 mg/dL (0.5-1.3); POTASSIUM 3.6 mmol/L (3.5-5.1)
[2023-10-13 04:16] LABS: PLATELET MORPHOLOGY COMMENT DECREASED
[2023-10-13 04:49] VITALS: BP 114/68; PULSE 93; RESP 18; TEMP 98.2
[2023-10-13] MEDS: hydroMORPHone 0.5 MG SYG (0.5MG/0.5ML) IVP ONE (04:54)
[2023-10-13 07:31] VITALS: BP 81/54; PULSE 78; RESP 18
[2023-10-13 07:36] VITALS: BP 100/60; PULSE 93; RESP 18
[2023-10-13 07:48] VITALS: BP 113/64; PULSE 95; RESP 20; TEMP 99.2
[2023-10-13 09:19] VITALS: O2SAT 96
[2023-10-13] MEDS ORDERED: PANT40TA54 PO (10:06)
[2023-10-13] MEDS ORDERED: TRAZ-185 PO (10:06)
[2023-10-13] MEDS ORDERED: RIFA550T PO (10:06)
[2023-10-13] MEDS ORDERED: LACT10SO9 PO (10:06)
[2023-10-13 12:34] VITALS: BP 116/72; PULSE 93; RESP 18; TEMP 99.3
== END 2023-10-13 13:50 | disposition home or self-care (01) | DRG 853 ==
LOC: EDH 18:18 → EDHIP 20:58 → 4AH 10-06 01:56 → 2AH 10-08 15:11 → 2DH 10-09 12:45
PROVIDERS: ADMIT Internal Medicine; ATTEND Internal Medicine
PROC: 0D9N8ZZ Drainage of Sigmoid Colon, Via Natural or Artificial Opening Endoscopic (ICD-10-PCS; 2023-10-08)
PROC: 02HV33Z Insertion of Infusion Device into Superior Vena Cava, Percutaneous Approach (ICD-10-PCS; 2023-10-11)
PROC: 0W9G3ZZ Drainage of Peritoneal Cavity, Percutaneous Approach (ICD-10-PCS; principal; 2023-10-12)
DX: A41.9 Sepsis, unspecified organism (principal); N17.0 Acute kidney failure with tubular necrosis; D68.9 Coagulation defect, unspecified; K56.7 Ileus, unspecified; N39.0 Urinary tract infection, site not specified; R18.8 Other ascites; E87.1 Hypo-osmolality and hyponatremia; E87.20 Acidosis, unspecified; K76.6 Portal hypertension; Z16.12 Extended spectrum beta lactamase (ESBL) resistance; K59.39 Other megacolon; K74.60 Unspecified cirrhosis of liver; K59.00 Constipation, unspecified; N18.9 Chronic kidney disease, unspecified; E66.9 Obesity, unspecified; D69.6 Thrombocytopenia, unspecified; E87.5 Hyperkalemia; I12.9 Hypertensive chronic kidney disease with stage 1 through stage 4 chronic kidney disease, or unspecified chronic kidney disease; B96.20 Unspecified Escherichia coli [E. coli] as the cause of diseases classified elsewhere; D63.1 Anemia in chronic kidney disease; K72.10 Chronic hepatic failure without coma; Z90.49 Acquired absence of other specified parts of digestive tract; Z82.49 Family history of ischemic heart disease and other diseases of the circulatory system; Z87.442 Personal history of urinary calculi; Z68.28 Body mass index [BMI] 28.0-28.9, adult
CPT/HCPCS: 36415; 36556; 36600; 45330; 49083; 71045; 74018; 74176; 80048; 80053; 81001; 82140; 82570; 82803; 83036; 83605; 83690; 83735; 83935; 84100; 84145; 84300; 85025; 85027; 85610; 85730; 87040; 87071; 87086; 87186; 87205; 89051; 93005; 96365; 96375; 96376; A4606; C1729; C1894; G0378; J0696; J1170; J1885; J2001; J2185; J2270; J2405; J2543; J2704; J2765; J3490; J7030; P9046; P9047; A4215; A4222; A4223; A4458; A4600; A4620; A7002